=== PATIENT | male | born 1995 | race Caucasian/White ===

== ENCOUNTER 2017-10-08 21:43 | Emergency (ER) | payer BC, SELFPAY ==
[2017-10-08 21:44] VITALS: BP 130/111; PULSE 129; RESP 23; TEMP 38.7; O2SAT 95; BMI 34.6
--- NOTE | 2017-10-08 21:46 | EKG12_ITS ---
Test Reason : CP Blood Pressure : / mmHG Vent. Rate : 128 BPM Atrial Rate : 128 BPM P-R Int : 120 ms QRS Dur : 084 ms QT Int : 304 ms P-R-T Axes : 054 065 030 degrees QTc Int : 443 ms Sinus tachycardia Otherwise normal ECG Confirmed by DEO AHMADI, DONNA ([id number]), primer expeditor and drier NOVA GOVEA ([id number]) on 10/12/2017 2:50:39 PM Referred By: DEDRICK/[place] Confirmed By:DONNA DESOUZA MD
[2017-10-08 21:47] VITALS: PULSE 125; RESP 16; O2SAT 92
--- NOTE | 2017-10-08 22:00 | ED.RN ---
PT STATES HE DRINKS A 12 PK OF BEER PER DAY, LAST ETOH 2 DAYS AGO, DENIES WITHDRAWAL SYMPTOMS OTHER THAN COLD SWEATS, FEEL THESE MAY BE ATTRIBUTED TO FLU.
--- NOTE | 2017-10-08 22:13 | ED.VISSUMM ---
- ER Visit Summary Date of Service: 10/08/17 Chief Complaint: [] Nausea/vomiting, alcohol withdrawal History of Present Illness: The patient is a 21 M [] complaining of flulike symptoms for the last 4-5 days with the onset of nausea and vomiting the last 12-24 hours. Patient reports he cannot hold anything down. Patient also reports he quit drinking alcohol cold . Says he has been drinking at least a 12 pack every day for the last 3 years. One question whether he wants admitted for detox, he says I do not have time for that. He denies abdominal pain. He does present with fever and flulike symptoms. Reports he was seen at a [facility] 2 days ago and told he had the flu. Does report a past medical history of psoriatic arthritis. Physical Examination: [] Febrile at 101.6. Tachycardic with a heart rate of 125. BP 130/111. Respiratory rate 24. Pulse ox 90% on room air. Morbidly obese 21-year-old male no acute distress. Cardiovascular exam is tachycardic with regular rhythm. Lungs are clear to auscultation. Abdomen is obese, soft, nontender. Test Results: [] Chest x-ray: Negative. Labs: CBC, BMP within normal limits. Influenza swab: Negative. Emergency Department Course and Treatment: [] Patient received 2 L normal saline bolus upon arrival. Patient received intravenous Phenergan, Ativan. P.o. Tylenol. On serial examination his heart rate came down into the low 100s and he was feeling significantly improved. He was requesting discharge. Again on serial exam I questioned his desire for alcohol detoxification and he declined. He stated he could not miss work. He will be discharged with a prescription for Phenergan. Treatment Plan: [] Patient will be discharged to follow-up with PCP. Given outpatient prescription for Phenergan. Encouraged to seek outpatient treatment for alcoholism. Disposition: [] Discharge, stable Impression: [] Alcohol withdrawal Viral syndrome Vomiting This note was generated with [employer] dictation software. It may contain incorrect words, spelling, and punctuation that were not noted in review of the chart prior to signing ED Disposition - Plan for ED Patient: Chief Complaint: General Illness Referrals: NOT,DEFINED [NON-STAFF] -
--- NOTE | 2017-10-08 22:16 | ED.DCSUM_ITS ---
- ER Visit Summary Date of Service: 10/08/17 Chief Complaint: [] Nausea/vomiting, alcohol withdrawal History of Present Illness: The patient is a 21 M [] complaining of flulike symptoms for the last 4-5 days with the onset of nausea and vomiting the last 12 -24 hours. Patient reports he cannot hold anything down. Patient also reports he quit drinking alcohol cold . Says he has been drinking at least a 12 pack every day for the last 3 years. One question whether he wants admitted for detox, he says I do not have time for that. He denies abdominal pain. He does present with fever and flulike symptoms. Reports he was seen at a [facility] 2 days ago and told he had the flu. Does report a past medical history of psoriatic arthritis. Physical Examination: [] Febrile at 101.6. Tachycardic with a heart rate of 125. BP 130/111. Respiratory rate 24. Pulse ox 90% on room air. Morbidly obese 21-year-old male no acute distress. Cardiovascular exam is tachycardic with regular rhythm. Lungs are clear to auscultation. Abdomen is obese, soft, nontender. Test Results: [] Chest x-ray: Negative. Labs: CBC, BMP within normal limits. Influenza swab: Negative. Emergency Department Course and Treatment: [] Patient received 2 L normal saline bolus upon arrival. Patient received intravenous Phenergan, Ativan. P.o. Tylenol. On serial examination his heart rate came down into the low 100s and he was feeling significantly improved. He was requesting discharge. Again on serial exam I questioned his desire for alcohol detoxification and he declined. He stated he could not miss work. He will be discharged with a prescription for Phenergan. Treatment Plan: [] Patient will be discharged to follow-up with PCP. Given outpatient prescription for Phenergan. Encouraged to seek outpatient treatment for alcoholism. Disposition: [] Discharge, stable Impression: [] Alcohol withdrawal Viral syndrome Vomiting This note was generated with [employer] dictation software. It may contain incorrect words, spelling, and punctuation that were not noted in review of the chart prior to signing ED Disposition - Plan for ED Patient: Chief Complaint: General Illness Referrals: NOT,DEFINED [NON-STAFF] -
[2017-10-08] MEDS: 0.9% Normal Saline 1,000 ML 1000 ML IV ×2 (22:23→23:35)
[2017-10-08] MEDS: Acetaminophen 325 MG Tablet 650 MG PO (22:23)
[2017-10-08] MEDS: proMETHazine 25 MG/ML Syringe 6.25 MG IV (22:24)
[2017-10-08] MEDS: LORazepam 2 MG/ML Syringe 1 MG IV (22:24)
[2017-10-08 22:28] VITALS: BP 156/95; PULSE 122; RESP 24; O2SAT 92
[2017-10-08 22:33] LABS: Absolute Lymphocyte Count 0.99 X10^3/ul (0.83-4.51); Absolute Neutrophil Count 4.5 X10^3/uL (2.0-7.7); Basophil# 0.06 X10^3/uL; Basophil% 0.9 % (0-1); Eosinophil# 0.18 X10^3/uL; Eosinophils% 2.7 % (0-5); Hematocrit 47.1 % (40-54); Hemoglobin 16.3 g/dl (13.0-16.5); Lymphocyte # 0.99 X10^3/ul (4.0); Mean Corp Hgb Conc 34.6 g/gl (32-36); Mean Corpuscular Hgb 32.3 pg (27.0-32.0); Mean Corpuscular Volume 93.3 fL (80-94); Mean Platelet Vol. 8.8 fl (6.2-12.0); Monocyte# 0.87 X10^3/uL; Monocyte% 13.2 % (0-10); Neutrophil # 4.46 X10^3/uL (2.7-7.7); Neutrophil % 67.7 % (47-70); Platelet Count 254 K/mm3 (150-450); RBC Distribution Width CV 13.4 % (11.6-14.6); RBC Distribution Width SD 44.3 fl (35.1-43.9); Red Blood Count 5.05 M/mm3 (4.6-6.2); White Blood Count 6.6 K/mm3 (4.4-11.0)
[2017-10-08 22:35] LABS: POSITIVE COUNT NO; POSITIVE DIFFERENTIAL NO; POSITIVE MORPHOLOGY NO
[2017-10-08 22:45] LABS: ALB/GLOB Ratio 0.9 RATIO (0.9-2.4); AST(SGOT) 266 U/L (15-37); Alanine Aminotransfer ALT/SGPT 413 U/L (16-61); Albumin, Serum 4.2 g/dL (3.2-5.0); Alkaline Phosphatase 110 U/L (45-117); Anion Gap 8 (5-15); BUN 12 mg/dL (7-18); BUN/Creat Ratio 11.1 RATIO (10-20); Calcium,Total 9.8 mg/dL (8.5-10.1); Chloride 102 mmol/L (98-107); Creatinine, Serum 1.08 mg/dL (0.70-1.30); EST Glomerular Filtration Rate 89 mL/min (>60); Est Glom Filt Rate - Afr Amer 108 mL/min (>60); Estimated Creatinine Clearance 123.68 ml/min; Globulin 4.5 g/dL (2.2-4.2); Glucose 86 mg/dL (74-106); Lipase 91 U/L (73-393); Potassium 4.3 mmol/L (3.5-5.1); Protein, Total 8.7 g/dL (6.4-8.2); Sodium Level 137 mmol/L (136-145)
--- NOTE | 2017-10-08 22:50 | RAD_ITS ---
XR Chest 2 Views INDICATION: COUGH, FEVER AND CHEST PAINS ON THE LEFT FOR A FEW DAYS NOW. COMPARISON: None FINDINGS: Heart size and pulmonary vascularity are within normal limits. The lungs are clear without evidence of airspace consolidation or pleural effusion. The osseous structures are grossly unremarkable. RAD/Chest PA and Lateral IMPRESSION: No radiographic evidence of acute intrathoracic disease. at 2309 Reported and signed by: Clarice Agudelo MD Electronically Signed: Clarice Agudelo MD at 23:08 EDT Tel , Service support ,
[2017-10-08 23:04] LABS: Alcohol, Blood (Medical)-Serum < 3.0 mg/dL
[2017-10-08 23:36] VITALS: BP 150/106; PULSE 116; RESP 23; O2SAT 95
--- NOTE | 2017-10-09 00:12 | ED.DEP ---
ED Disposition - Plan for ED Patient: Disposition: Home or Assisted Living Chief Complaint: General Illness Instructions: Alcohol Addiction, ED Viral Syndrome Prescriptions: proMETHazine tablet [Phenergan tablet] 25 mg PO Q6H PRN PRN #20 tab PRN Reason: Nausea Referrals: NOT,DEFINED [NON-STAFF] -
[2017-10-09 00:15] VITALS: BP 150/94; PULSE 95; RESP 17; TEMP 36.9; O2SAT 93
== END 2017-10-09 00:23 | disposition home or self-care (01) ==
PROVIDERS: Emergency Provider Emergency Medicine
DX: F10.239 Alcohol dependence with withdrawal, unspecified (principal); B34.9 Viral infection, unspecified; R11.10 Vomiting, unspecified; R50.9 Fever, unspecified; E66.01 Morbid (severe) obesity due to excess calories; L40.50 Arthropathic psoriasis, unspecified; Z86.19 Personal history of other infectious and parasitic diseases
CPT/HCPCS: 71046; 80053; 80320; 83690; 85025; 87804; 93005; 96361; 96374; 96375; 99285; J7030; A4216; G0480

== ENCOUNTER 2017-12-15 19:29 | Emergency (ER) | payer BC, SELFPAY ==
[2017-12-15 19:31] VITALS: BP 157/93; PULSE 94; RESP 17; TEMP 36.4; O2SAT 96; BMI 34.9
--- NOTE | 2017-12-15 19:36 | ED.RN ---
RN CALLED FOR EKG, PULLED OLD EKG'S FOR
--- NOTE | 2017-12-15 19:50 | RAD_ITS ---
STUDY: X-RAY CHEST REASON FOR EXAM: Male, 22 years old. Intermittent chest pain for 3 days. TECHNIQUE: Single AP portable view of the chest. COMPARISON: October 08, 2017. FINDINGS: The lungs are clear and expanded. There is no demonstrated pleural abnormality. Normal size heart. Normal mediastinum and jessica. Normal visualized pulmonary arteries. Normal visualized aortic arch and descending thoracic aorta. The thoracic spine is obscured by the mediastinum. Normal visualized ribs, clavicles, and shoulders. There is no demonstrated abnormality of the visualized soft tissue structures of the upper abdomen. RAD/Chest 1 View (Portable) IMPRESSION: No acute cardiopulmonary disease or interval change. Electronically Signed: Ted Kimble DO at 20:10 EDT Tel [phone], Service support ,
--- NOTE | 2017-12-15 19:50 | EKG12_ITS ---
Test Reason : CHEST PAIN Blood Pressure : / mmHG Vent. Rate : 100 BPM Atrial Rate : 100 BPM P-R Int : 120 ms QRS Dur : 082 ms QT Int : 352 ms P-R-T Axes : 008 016 018 degrees QTc Int : 454 ms Normal sinus rhythm Normal ECG Confirmed by DEO AHMADI, DONNA ([id number]), book editor NOVA GOVEA ([id number]) on 12/19/2017 2:16:43 PM Referred By: KENDRA Confirmed By:DONNA DESOUZA MD
[2017-12-15] MEDS: Aspirin 81 MG TAB.CHEW 324 MG PO (20:05)
[2017-12-15 20:15] LABS: Absolute Lymphocyte Count 1.88 X10^3/ul (0.83-4.51); Absolute Neutrophil Count 4.6 X10^3/uL (2.0-7.7); Basophil# 0.03 X10^3/uL; Basophil% 0.4 % (0-1); Eosinophil# 0.39 X10^3/uL; Hemoglobin 14.4 g/dl (13.0-16.5); Lymphocyte # 1.88 X10^3/ul (4.0); Mean Corp Hgb Conc 33.5 g/gl (32-36); Mean Corpuscular Hgb 31.9 pg (27.0-32.0); Mean Corpuscular Volume 95.3 fL (80-94); Mean Platelet Vol. 8.9 fl (6.2-12.0); Monocyte# 0.98 X10^3/uL; Monocyte% 12.5 % (0-10); Neutrophil # 4.55 X10^3/uL (2.7-7.7); Platelet Count 263 K/mm3 (150-450); RBC Distribution Width CV 13.3 % (11.6-14.6); RBC Distribution Width SD 46.2 fl (35.1-43.9); Red Blood Count 4.51 M/mm3 (4.6-6.2); White Blood Count 7.8 K/mm3 (4.4-11.0)
[2017-12-15 20:16] LABS: POSITIVE COUNT NO; POSITIVE DIFFERENTIAL NO; POSITIVE MORPHOLOGY NO
[2017-12-15 20:21] LABS: D-Dimer Quantitative (DVT/PE) 0.38 FEU/ug/m (0.27-0.49)
[2017-12-15 20:25] LABS: Anion Gap 1 (5-15); BUN 14 mg/dL (7-18); BUN/Creat Ratio 14.9 RATIO (10-20); Calcium,Total 9.4 mg/dL (8.5-10.1); Chloride 103 mmol/L (98-107); Creatinine, Serum 0.94 mg/dL (0.70-1.30); EST Glomerular Filtration Rate 105 mL/min (>60); Est Glom Filt Rate - Afr Amer 127 mL/min (>60); Estimated Creatinine Clearance 140.89 ml/min; Glucose 101 mg/dL (74-106); Lipase 89 U/L (73-393); Potassium 4.1 mmol/L (3.5-5.1); Sodium Level 138 mmol/L (136-145)
[2017-12-15 20:39] VITALS: PULSE 84; RESP 20; O2SAT 99
--- NOTE | 2017-12-15 21:10 | ED.VISSUMM ---
- ER Visit Summary Date of Service: 12/15/17 Chief Complaint: Chest pain History of Present Illness: The patient is a 22 M presenting with chest pain intermittently ?3 days. He states he does a lot of frequent lifting but does not recall specific injury. He denies any recent travel or recent surgeries. He has a family history of DVT. No other PE/DVT risk factors. He is not a smoker. He has had subjective fevers and cough at home. Denies other complaints. Physical Examination: Vitals are stable. Patient is afebrile. Alert no acute distress. HEENT exam is unremarkable. Neck is supple. Lungs are clear and equal bilaterally. Mild chest wall tenderness with no crepitus Heart is regular rate and rhythm. Abdomen is soft nontender nondistended. Extremities are unremarkable. Skin is warm and dry. No focal neurologic deficit. Remainder of exam is unremarkable. Emergency Department Course and Treatment: Patient was given aspirin on arrival. EKG is sinus rhythm 100 with no acute ischemic changes. Chest x-ray shows no acute process. CBC, chemistries unremarkable. Lipase is 89. Troponin is negative. D-dimer negative. On reevaluation, patient is resting comfortably. He is advised to follow-up with his primary care physician. Advised return to ED for any worsening complaints. Disposition: Discharge home Impression: Atypical chest pain This note was generated with [employer] dictation software. It may contain incorrect words, spelling, and punctuation that were not noted in review of the chart prior to signing ED Disposition - Plan for ED Patient: Chief Complaint: Chest Pain Instructions: ED Chest Pain Atypical Unkn Cause Referrals: Care Physician,No Primary [Primary Care Provider] -
[2017-12-15 21:12] VITALS: BP 147/97; PULSE 89; RESP 20; O2SAT 99
--- NOTE | 2017-12-15 21:47 | ED.DEP ---
ED Disposition - Plan for ED Patient: Chief Complaint: Chest Pain Instructions: ED Chest Pain Atypical Unkn Cause Referrals: Care Physician,No Primary [Primary Care Provider] -
[2017-12-15 21:55] VITALS: BP 164/90; PULSE 80; RESP 16; O2SAT 99
== END 2017-12-15 21:56 | disposition home or self-care (01) ==
PROVIDERS: Emergency Provider Emergency Medicine
DX: R07.89 Other chest pain (principal); R06.00 Dyspnea, unspecified; R05 Cough
CPT/HCPCS: 71045; 80048; 83690; 84484; 85025; 85379; 93005; 99285; A4216

== ENCOUNTER 2018-12-23 12:50 | Emergency (ER) | payer BC, SELFPAY ==
[2018-12-23 12:51] VITALS: BP 134/88; PULSE 128; RESP 16; TEMP 36.6; O2SAT 97; BMI 33.1
--- NOTE | 2018-12-23 13:11 | ED.DCSUM_ITS ---
History of Present Illness Chief Complaint: Numb/Ting Informant: Patient Onset: Today Current Severity: Mild Maximum Severity: Mild Narrative: Reports waking from sleep around 930 this morning. He noted numbness and tin gling to the distal aspect of his left upper arm and forearm. He does not remember if he slept on his arm last night. He is able to use his arm without difficulty. Patient states this made him anxious and he did note his heart rate at home was 150. He denies chest pain. He has a history of hypertension and does take blood pressure medication. No recent changes to his medication. No headache or neck pain. Past Medical History - Allergies and Home Meds Allergies/Adverse Reactions: Allergies No Known Allergies Allergy (Verified 12/23/18 12:54) Primary Care Physician: Care Physician,No Primary [NON-STAFF] - Prior records reviewed: Yes Past Medical History: - - Reviewed Lives: Spouse/ Significant Other Smoking Status: Former smoker Alcohol: Heavy Review of Systems General: Denies: Chills, Fever Eyes: Denies: Visual changes - bilaterally ENT: Denies: Bilateral ear pain Cardiovascular: Reports: Heart racing. Denies: Chest pain Respiratory: Denies: Dyspnea, Cough Gastrointestinal: Denies: Abdominal pain, Nausea, Vomiting Musculoskeletal: Denies: Neck pain Skin: Denies: Rash, Wounds Neurological: Reports: Parasthesia. Denies: Headache, Weakness Psych: Reports: Anxiety Hematologic: Denies: Easy bruising Physical Exam Vital Signs/Narrative: Vital Signs Temp Pulse Resp BP Pulse Ox 12/23/18 12:51 97.8 F 128 H 16 134/88 H 97 Inital Vital Signs reviewed: Yes General: Well nourished, Well developed Eyes: Perrl ENT: Moist mucous membranes Cardiovascular: Tachycardia Respiratory: No distress, Decreased Air Movement Abdomen: Soft, Nontender Extremities: Nontender, No edema - Patient reports decreased sensation to light touch over the distal left upper arm and forearm. He has strong distal pulses with normal cap refill. No skin changes noted. He has normal strength on testing. Skin: Normal color, No rash Neurological: Alert, Oriented x3, Normal Strength. Negative for: Normal Sensation Psychological: - - Anxious Diagnostic/Tx/Re-eval Laboratory Results 12/23/18 12/23/18 12/23/18 13:27 13:27 13:27 WBC 5.5 RBC 4.31 L Hgb 13.9 Hct 41.2 MCV 95.6 H MCH 32.3 H MCHC 33.7 RDW Std Deviation 43.4 RDW Coeff of Calos 12.4 Plt Count 232 MPV 9.1 Immature Gran % (Auto) 0.400 Neut % (Auto) 58.5 Lymph % (Auto) 15.7 L [place] % (Auto) 16.3 H Eos % (Auto) 8.0 H Baso % (Auto) 1.1 H Absolute Neuts (auto) 3.2 Absolute Lymphs (auto) 0.87 Nucleated RBC % 0 Sodium 131 L Potassium 4.2 Chloride 96 L Carbon Dioxide 27.0 Anion Gap 8 BUN 12 Creatinine 1.19 Estim Creat Clear Calc 110.33 Est GFR (MDRD) Af Amer 96 Est GFR (MDRD) Non-Af 79 BUN/Creatinine Ratio 10.1 Glucose 425 H Hemoglobin A1c 10.6 H Calcium 9.4 - Medical Decision Making Patient was initially given IV fluids. Upon completion of BMP and significantly elevated glucose hemoglobin A1c was added. I discussed with patient and his at bedside the fact that he is now a diabetic. Patient does admit to having increased thirst and increased urination over the last week or so. He does admit to me that he is an alcoholic drinking at least a 12 pack of beer a night. He still reports some paresthesias in his left arm. Advised him I believe this is likely secondary to lying on his arm last night and will resolve with time. I do not see any other focal findings. I spoke with Dr. Coronado, on-call for [facility] physicians. Patient be started on metformin for his diabetes and will follow-up in the office. ED Disposition - Plan for ED Patient: Disposition: Home or Assisted Living Diagnosis: Paresthesias, Diabetes mellitus, new onset Instructions: DIABETES, General Info, NEUROPATHY, Peripheral Prescriptions: metFORMIN (XR) [Glucophage Xr] 2,000 mg PO DAILY #120 tablet Referrals: Ivonne Enriquez, WILIAN-C [Primary Care Provider] - 1 Week
[2018-12-23] MEDS: 0.9% Normal Saline 1,000 ML 1000 ML IV (13:40)
[2018-12-23 13:42] LABS: Absolute Lymphocyte Count 0.87 X10^3/uL (0.83-4.51); Absolute Neutrophil Count 3.2 X10^3/uL (2.0-7.7); Basophil# 0.06 X10^3/uL; Basophil% 1.1 % (0-1); Eosinophil# 0.44 X10^3/uL; Hematocrit 41.2 % (40-54); Hemoglobin 13.9 g/dL (13.0-16.5); Lymphocyte # 0.87 X10^3/ul (4.0); Lymphocyte % 15.7 % (19-41); Mean Corp Hgb Conc 33.7 g/dL (32-36); Mean Corpuscular Hgb 32.3 pg (27.0-32.0); Mean Corpuscular Volume 95.6 fL (80-94); Mean Platelet Vol. 9.1 fl (6.2-12.0); Monocyte% 16.3 % (0-10); NRBC Flagged by Analyzer 0 % (0-5); Neutrophil # 3.24 X10^3/uL (2.7-7.7); Neutrophil % 58.5 % (47-70); Platelet Count 232 K/mm3 (150-450); RBC Distribution Width CV 12.4 % (11.6-14.6); RBC Distribution Width SD 43.4 fl (35.1-43.9); Red Blood Count 4.31 M/mm3 (4.6-6.2); White Blood Count 5.5 K/mm3 (4.4-11.0)
[2018-12-23 13:53] LABS: Anion Gap 8 (5-15); BUN 12 mg/dL (7-18); BUN/Creat Ratio 10.1 RATIO (10-20); Calcium,Total 9.4 mg/dL (8.5-10.1); Chloride 96 mmol/L (98-107); Creatinine, Serum 1.19 mg/dL (0.70-1.30); EST Glomerular Filtration Rate 79 mL/min (>60); Est Glom Filt Rate - Afr Amer 96 mL/min (>60); Estimated Creatinine Clearance 110.33 ml/min; Glucose 425 mg/dL (74-106); Potassium 4.2 mmol/L (3.5-5.1); Sodium Level 131 mmol/L (136-145)
[2018-12-23 15:21] LABS: Hemoglobin A1c 10.6 % (4.2-6.3)
[2018-12-23] MEDS: 0.9% Normal Saline 1,000 ML 999 ML IV (15:22)
[2018-12-23 16:26] VITALS: BP 142/84; PULSE 88; RESP 16; O2SAT 98
[2018-12-23] MEDS: metFORMIN (XR) 500 MG Tablet PO (16:29)
[2018-12-23 16:34] VITALS: BP 142/84
== END 2018-12-23 16:36 | disposition home or self-care (01) ==
PROVIDERS: Emergency Provider Emergency Medicine; Family Provider Nurse Practitioner Family; PCP Nurse Practitioner Family
DX: R20.2 Paresthesia of skin (principal); E11.9 Type 2 diabetes mellitus without complications; I10 Essential (primary) hypertension; F41.9 Anxiety disorder, unspecified; Z79.899 Other long term (current) drug therapy; F10.20 Alcohol dependence, uncomplicated; Z87.891 Personal history of nicotine dependence
CPT/HCPCS: 80048; 83036; 85025; 96360; 96361; 99285; J7030; A4216

== ENCOUNTER → 2019-09-17 09:50 | Outpatient (CLI) | payer BC, SELFPAY ==
[2019-09-17 12:18] LABS: Absolute Lymphocyte Count 1.69 X10^3/uL (0.83-4.51); Absolute Neutrophil Count 3.8 X10^3/uL (2.0-7.7); Basophil# 0.09 X10^3/uL; Basophil% 1.3 % (0-1); Eosinophil# 0.43 X10^3/uL; Eosinophils% 6.2 % (0-5); Hematocrit 36.9 % (40-54); Hemoglobin 12.5 g/dL (13.0-16.5); Lymphocyte # 1.69 X10^3/ul (4.0); Lymphocyte % 24.4 % (19-41); Mean Corp Hgb Conc 33.9 g/dL (32-36); Mean Corpuscular Hgb 32.1 pg (27.0-32.0); Mean Corpuscular Volume 94.9 fL (80-94); Monocyte# 0.86 X10^3/uL; Monocyte% 12.4 % (0-10); NRBC Flagged by Analyzer 0 % (0-5); Neutrophil # 3.81 X10^3/uL (2.7-7.7); Platelet Count 270 K/mm3 (150-450); RBC Distribution Width CV 12.5 % (11.6-14.6); RBC Distribution Width SD 42.9 fl (35.1-43.9); Red Blood Count 3.89 M/mm3 (4.6-6.2); White Blood Count 6.9 K/mm3 (4.4-11.0)
[2019-09-17 12:37] LABS: Erythrocyte Sedimentation Rate 6 mm/hr (0-15)
[2019-09-17 12:57] LABS: AST(SGOT) 79 U/L (15-37); Alanine Aminotransfer ALT/SGPT 248 U/L (16-61); Alkaline Phosphatase 80 U/L (45-117); Anion Gap 5 (5-15); BUN 11 mg/dL (7-18); BUN/Creat Ratio 9.9 RATIO (10-20); CRP < 2.90 mg/L (0.0-3.0); Calcium,Total 9.9 mg/dL (8.5-10.1); Chloride 102 mmol/L (98-107); Creatinine, Serum 1.11 mg/dL (0.70-1.30); EST Glomerular Filtration Rate 85 mL/min (>60); Est Glom Filt Rate - Afr Amer 103 mL/min (>60); Glucose 125 mg/dL (74-106); Potassium 4.2 mmol/L (3.5-5.1); Rheumatoid Factor < 10.0 IU/mL (<15); Sodium Level 136 mmol/L (136-145)
[2019-09-17 13:26] LABS: Hepatitis B Surface Antibody Non-Reactive; Hepatitis B Surface Antigen Non-Reactive (Nonreactive); Hepatitis C Antibody Non-Reactive (Nonreactive)
[2019-09-18 14:17] LABS: ANTINUCLEAR ANTIBODIES DIRECT Positive (Negative)
[2019-09-21 14:08] LABS: QNTFERON TB Mitogen Value > 10.00 IU/mL (.); QNTFERON TB Nil Value 0.04 IU/mL (.); QNTFERON TB1+ Ag Value 0.05 IU/mL (.); QNTFERON TB2+ Ag Value 0.04 IU/mL (.)
[2019-09-21 15:25] LABS: CCP IgG Antibodies 9 units (0-19); HLA B27 Negative (.); Hepatitis B Core AB IgM Negative (Negative); QNTIFERON TB Positive Criteria Negative (Negative)
== END ==
PROVIDERS: PCP Nurse Practitioner Family; Referring Provider Internal Medicine Rheumatology; Visit Provider Internal Medicine Rheumatology
DX: L40.59 Other psoriatic arthropathy (principal); L40.8 Other psoriasis; M21.41 Flat foot [pes planus] (acquired), right foot
CPT/HCPCS: 36415; 80053; 81374; 85025; 85652; 86038; 86140; 86200; 86431; 86480; 86705; 86706; 86803; 87340

== ENCOUNTER → 2020-03-13 13:18 | Outpatient (CLI) | payer OTHER, SELFPAY ==
[2020-03-13 14:26] LABS: EXAGEN MAILED SPECIMEN
== END ==
PROVIDERS: PCP Nurse Practitioner Family; Referring Provider Internal Medicine Rheumatology; Visit Provider Internal Medicine Rheumatology
DX: L40.59 Other psoriatic arthropathy (principal); Z79.899 Other long term (current) drug therapy; L40.8 Other psoriasis; R76.8 Other specified abnormal immunological findings in serum
CPT/HCPCS: 36415

== ENCOUNTER → 2022-11-01 | Outpatient (CLI) | payer BC, SELFPAY ==
--- NOTE | 2022-11-01 07:49 | US_ITS ---
STUDY: ABDOMINAL ULTRASOUND - RIGHT UPPER QUADRANT; ELASTOGRAPHY REASON FOR VISIT: Male, 26 years old. Elevated liver enzymes. TECHNIQUE: Ultrasound evaluation of the right upper quadrant was performed with real-time and static albarran-scale imaging. Point quantification shear wave elastography was performed (Visual Unity ) TECHNICAL QUALITY: Adequate. COMPARISON: None. FINDINGS: Liver: The liver is enlarged and measures 20.4 cm. There is increased echogenicity consistent with fatty infiltration. The bile ducts are within normal limits. There is hepatic color flow. The direction of portal flow is hepatopetal. There is no demonstrated mass lesion. Median liver stiffness measured 11.1 kPa. Gallbladder: Normal distended gallbladder. The gallbladder wall measures 1.9 mm. There is a negative sonographic Strauss''s sign. There is no pericholecystic fluid. There are no gallstones. Common Bile Duct (C.B.D.): The common bile duct measures 5 mm. Pancreas: There is normal echogenicity of the visualized pancreas. There is no demonstrated pancreatic mass or cyst. Right Kidney: Normal size of the right kidney. The right kidney measures 11.2 cm x 5.6 x 6.2 cm. Normal renal cortex. The right cortex measures 1.9 cm. There is no demonstrated renal mass or cyst. There is no right hydronephrosis. US/ABD Limited w/ Elastography IMPRESSION: 1. Liver stiffness measures 11.1 kPa compatible with F2-F3 (Mild to moderate liver fibrosis) Metavir score. Electronically Signed: Chema Del Toro MD at 12:31 EDT ,
== END | disposition home or self-care (01) ==
LOC: US 07:47
PROVIDERS: PCP Nurse Practitioner Family; Referring Provider Internal Medicine Gastroenterology; Visit Provider Internal Medicine Gastroenterology
DX: R94.5 Abnormal results of liver function studies (principal)
CPT/HCPCS: 36415; 76705; 76981; 85610

== ENCOUNTER → 2022-12-07 | Outpatient (CLI) | payer BC, SELFPAY ==
[2022-12-07 17:00] LABS: Platelet Count 238 K/mm3 (150-450)
[2022-12-07 17:07] LABS: International Normalized Ratio 1.1; Prothrombin Time (Protime)PT. 14.4 SECONDS (11.7-14.9)
[2022-12-07 17:08] LABS: Partial Thromboplast Time 30.1 Seconds (24.1-36.2)
== END | disposition home or self-care (01) ==
LOC: LAB 15:30
PROVIDERS: PCP Nurse Practitioner Family; Referring Provider Internal Medicine Gastroenterology; Visit Provider Internal Medicine Gastroenterology
DX: K76.0 Fatty (change of) liver, not elsewhere classified (principal); K70.9 Alcoholic liver disease, unspecified; F10.10 Alcohol abuse, uncomplicated; R16.0 Hepatomegaly, not elsewhere classified
CPT/HCPCS: 36415; 85049; 85610; 85730

== ENCOUNTER → 2022-12-13 | Outpatient (CLI) | payer BC, SELFPAY ==
[2022-12-13] VITALS (9 sets, daily range): BP systolic 118–153; BP diastolic 86–109; PULSE 52–81; RESP 12–18; TEMP 36.5; O2SAT 93–97; BMI 34.0
--- NOTE | 2022-12-13 | LIV_PTH ---
PATIENT: LASHAUN JEFFERSON LOC: CT U#:[id number] AGE/SX: 27/M ROOM: RE12/13/[address]: Dr. Fly Abdi MD : 1995 BED: DIS: 12/13/2022 SPEC #: [id number] RECD: 12/13/22 10:26 STATUS: LEN PAM #: [id number] HERMAN: 12/13/22 00:[address]: Fly Abdi DEPT: SURGICAL PATHOLOGY RECD BY: Yaakov Nguyen ENTERED: 12/13/22 10:26 SP TYPE: LIVER RES OTHR DR: Ivonne Enriquez, INTERNET RETAILER-C Tissues: Liver, NOS Procedures: PAS with Diastase (control) Trichrome (control) Special Stain Group II Special Stain Group I PAS Stain (control) Surgery Specimen Level V AFB Stain (control) GMS Stain (control) Retic (control) Iron Stain (control) HEADER OPERATION: CT-guided liver biopsy PRE-OP DIAGNOSIS: Fatty liver TISSUE SUBMITTED: Liver 18-gauge x3 MICROSCOPIC DIAGNOSIS Liver, CT-guided core biopsy: Cirrhosis. Chronic hepatitis (grade 2, stage 4). Hepatic steatosis, predominantly macrovesicular. Focal non necrotizing granuloma. See comment. AM:imelda 12/14/2022 COMMENT The modified Knodell scoring system for chronic hepatitis was used in the evaluation of this case. Sections on trichrome stain show broad band fibrosis with bridging. The liver parenchyma shows mostly macrovesicular steatosis with a small component of microvesicular steatosis. Reticulin stain highlights fibrosis. Iron stain does not reveal accumulation of intraparenchymal iron. PAS and PASD stains do not reveal accumulation of abnormal protein. A single non necrotizing granuloma is present and is negative for organisms on acid fast and GMS stains. All matched controls are appropriate. Clinical correlation is suggested. Case has been reviewed in consultation with Dr. Anton who concurs with the above diagnosis. IDC:[email or web address] MICROSCOPIC DESCRIPTION Slides are reviewed. GROSS DESCRIPTION Received is one container labeled with the patient's name and not further designated. The specimen consists of three elongated fragments of thomas soft tissue measuring in aggregate 2.0 x 0.3 x 0.1 cm. The specimen is totally submitted in one cassette. / SHANT:imelda 12/13/2022 TC:3 CPT: 02880, 30011 x5, 83802 x2.
--- NOTE | 2022-12-13 08:06 | CT_ITS ---
PROCEDURE: CT DIRECTED CORE LIVER BIOPSY INDICATION: Male, 27 years old. LIVER BIOPSY PHYSICIAN: Dr. Katey Silver CONSENT: Written informed consent was obtained having explained the risks, benefits and alternatives in detail with the patient who accepted the risks and agreed to proceed. Laboratory review and clinical assessment was performed. CONSCIOUS SEDATION PROTOCOL: The Drugs used were: 2 mg Versed, IV., and 50 mcg Fentanyl, IV. The sedation time was: 15 minutes. Conscious sedation was started at 8:43 AM and terminated at 8:58 AM. The conscious sedation protocol was independently monitored. RADIATION DOSAGE (If Supplied By Facility): CTDIvol = ( 26 ) mGy, DLP = ( 1451.77 ) mGycm Individualized dose optimization techniques were used for this CT. TECHNIQUE: Using CT image guidance with image documentation, a suitable location in the right lobe of the liver was identified. Using an anterior approach, puncture of the liver was uneventful with an 18-gauge core needle system. 3, 18-gauge core samples were obtained, and submitted in formalin to the pathologist for further assessment. Followup CT scan revealed no distinct sequelae. CT/Biopsy/Inj or Needle Placement IMPRESSION: 1. CT directed core needle biopsy of the liver, using CT image guidance with image documentation as described. 2. Conscious Sedation protocol utilized with independent monitoring. Electronically Signed: Chema Del Toro MD at 9:35 EDT ,
[2022-12-13 08:07] LABS: Platelet Count 206 K/mm3 (150-450)
[2022-12-13 08:30] LABS: International Normalized Ratio 1.1; Prothrombin Time (Protime)PT. 13.9 SECONDS (11.7-14.9)
[2022-12-13 08:31] LABS: Partial Thromboplast Time 31.4 Seconds (24.1-36.2)
[2022-12-13] MEDS: Midazolam 2 MG/2 ML Syringe IV (08:43)
[2022-12-13] MEDS: fentaNYL 100 MCG/2 ML Ampul IV (08:44)
[2022-12-13] MEDS: Lidocaine 2% (20 ml mdv) 20 ML Vial INFILT (08:53)
== END | disposition home or self-care (01) ==
PROVIDERS: PCP Nurse Practitioner Family; Referring Provider Internal Medicine Gastroenterology; Visit Provider Internal Medicine Gastroenterology
DX: K70.10 Alcoholic hepatitis without ascites (principal)
CPT/HCPCS: 47000; 36415; 77012; 85049; 85610; 85730; 88307; 88312; 88313; 99156; J7050; A4216

== ENCOUNTER → 2023-09-29 | Outpatient (CLI) | payer BC, SELFPAY ==
[2023-09-29 13:03] LABS: Pathologist Comment May follow
[2023-09-29 14:38] LABS: Synovial Fld Mononuclear WBC # 4.986 10^3/ul; Synovial Fld Mononuclear WBC % 27.9 %; Synovial Fld Polynuclear WBC # 12.916 10^3/uL; Synovial Fld Polynuclear WBC % 72.1 %
[2023-09-29 15:12] LABS: RBC /Synovial Fluid 0.004 10^6/uL (0)
[2023-09-29 16:06] LABS: Lymph 6 %; Monocyte /Synovial Fluid 6 %; Neutrophil 81 % (0-25)
[2023-09-29 16:07] LABS: AUTO B FLUID DILUENT BKGD CT WBC <0.1 RBC <0.01 (W<.1,R<.01); CRYSTALS, BODY FLUID NO CRYSTALS SEEN
[2023-09-29 16:08] LABS: Source- Body Fluid SYNOVIAL
[2023-09-29 16:09] LABS: Source / Synovial Fluid RIGHT KNEE
[2023-09-29 16:10] LABS: Appearance /Synovial Fluid Cloudy (CLEAR); Color / Synovial Fluid Yellow (Pale Yellow)
[2023-09-29 16:11] LABS: Body Fluid QC Type(s) BF1Q,BF2Q; Other Cell /Synovial Fluid 7 %
[2023-09-30 11:55] LABS: Pathologist Review Reviewed
== END | disposition home or self-care (01) ==
LOC: LABSPEC 12:48
PROVIDERS: PCP Nurse Practitioner Family; Referring Provider Internal Medicine Rheumatology; Visit Provider Internal Medicine Rheumatology
DX: L40.59 Other psoriatic arthropathy (principal); Z79.899 Other long term (current) drug therapy; L40.8 Other psoriasis; R76.8 Other specified abnormal immunological findings in serum; M25.561 Pain in right knee
CPT/HCPCS: 87070; 87075; 87205; 89050; 89051; 89060

== ENCOUNTER → 2024-01-25 | Outpatient (CLI) | payer BC, SELFPAY ==
[2024-01-25 17:28] LABS: Hematocrit 47.1 % (40-54); Hemoglobin 15.4 g/dL (13.0-16.5); Mean Corp Hgb Conc 32.7 g/dL (32-36); Mean Corpuscular Hgb 30.2 pg (27.0-32.0); Mean Corpuscular Volume 92.4 fL (80-94); Mean Platelet Vol. 9.3 fl (6.2-12.0); Platelet Count 306 K/mm3 (150-450); RBC Distribution Width CV 12.7 % (11.6-14.6); RBC Distribution Width SD 43.8 fl (35.1-43.9)
[2024-01-25 17:55] LABS: International Normalized Ratio 1.1; Prothrombin Time (Protime)PT. 14.4 SECONDS (11.7-14.9)
[2024-01-27 12:09] LABS: AFP, Tumor Marker 4.7 ng/mL (0.0-5.7)
== END | disposition home or self-care (01) ==
LOC: MTLAB 14:06
PROVIDERS: PCP Nurse Practitioner Family; Referring Provider Internal Medicine Gastroenterology; Visit Provider Internal Medicine Gastroenterology
DX: K74.60 Unspecified cirrhosis of liver (principal)
CPT/HCPCS: 36415; 82105; 85027; 85610

== ENCOUNTER → 2025-02-06 | Outpatient (CLI) | payer BC, SELFPAY ==
[2025-02-06 20:33] LABS: Synovial Fld Mononuclear WBC # 1.804 10^3/ul; Synovial Fld Mononuclear WBC % 32.5 %; Synovial Fld Polynuclear WBC # 3.746 10^3/uL; Synovial Fld Polynuclear WBC % 67.5 %; Total Cell Count Synovial Fld 5.7170 10^3/uL (0.000-0.000); WBC / Synovial Fluid 5.5500 10^3/uL (0.000-0.002)
[2025-02-06 20:56] LABS: AUTO B FLUID DILUENT BKGD CT WBC <0.1 RBC <0.01 (W<.1,R<.01); Source- Body Fluid SYNOVIAL
[2025-02-06 20:57] LABS: Color / Synovial Fluid Straw (Pale Yellow)
[2025-02-06 20:58] LABS: Appearance /Synovial Fluid Turbid (CLEAR)
[2025-02-06 21:02] LABS: Source / Synovial Fluid RGHT KNEE
[2025-02-06 22:39] LABS: RBC /Synovial Fluid 559 /mm3 (0)
[2025-02-06 23:26] LABS: Monocyte /Synovial Fluid 13 %
[2025-02-06 23:28] LABS: Body Fluid QC Type(s) BF2Q,BF3Q
[2025-02-06 23:42] LABS: CRYSTALS, BODY FLUID NO CRYSTALS SEEN
[2025-02-08 14:11] LABS: Other Cell /Synovial Fluid 10 %
== END | disposition home or self-care (01) ==
PROVIDERS: PCP Nurse Practitioner Family; Referring Provider Internal Medicine Rheumatology; Visit Provider Internal Medicine Rheumatology
DX: L40.59 Other psoriatic arthropathy (principal); Z79.899 Other long term (current) drug therapy; R76.8 Other specified abnormal immunological findings in serum; M25.561 Pain in right knee
CPT/HCPCS: 87070; 87075; 87205; 89050; 89051; 89060

== ENCOUNTER 2025-04-12 12:45 | Emergency (ER) | payer BC, SELFPAY ==
[2025-04-12 12:45] VITALS: BP 153/91; PULSE 100; RESP 16; TEMP 36.8; O2SAT 99; BMI 30.2
--- NOTE | 2025-04-12 13:16 | RAD_ITS ---
PROCEDURE: KNEE 4 OR MORE VIEWS 04/12/2025 REASON FOR EXAM: LEFT KNEE PAIN, INJURY TECHNIQUE: Procedure Code: RADKN Modality: DX Procedure: KNEE 4 OR MORE VIEWS Laterality: Left COMPARISON: None. FINDINGS: Bones: No fracture. No suspicious bone lesion. Joints: Normal alignment. No significant degenerative changes. Effusion: No effusion. Soft tissues: Soft tissues are unremarkable. RAD/Knee 4 or More Views IMPRESSION: NO EFFUSION ACUTE FRACTURE OR DISLOCATION. Reading [facility]
--- NOTE | 2025-04-12 13:16 | VDLE_ITS ---
Reason For Study Reason For Study: Swelling RIGHT LEFT CFV is compressible, spontaneous, phasic, competent GSV is normal. and demonstrates normal augmentation. CFV is compressible, spontaneous, phasic, competent, Procedure and demonstrates normal augmentation. This is a venous duplex using B-mode, color flow and FV is compressible, spontaneous, phasic, competent spectral Doppler. and demonstrates normal augmentation. Exam performed portable in ED. POP V is compressible, spontaneous, phasic, competent A preliminary report was called and/or faxed to ED and demonstrates normal augmentation. RN. T/P Trunk is compressible. PTV is compressible. LT PerV is compressible. VL/Venous Duplex US, Unilateral Interpretation Summary Deep veins of the left lower extremity are patent and compressible segmentally. There is no evidence of left lower extremity deep vein thrombosis. Valvular competence appears intact within the p roximal deep venous system on the left . The left great saphenous vein appears patent and compressible segmentally. The right common femoral vein is patent and compressible . Ordering Physician: Omaira Ogden Performed By: Magaly Smyth RVYuliet
[2025-04-12] MEDS: Ketorolac 30 MG/ML Syringe IM (13:45)
--- OUTSIDE RECORDS SUMMARY | 2025-04-12 14:14 | XMS RPT_ITS | CCD ---
Author Organization [facility] Inform ion Partnership [facility] Care Team Providers Care Rehabilitation Aide Name Role Phone LORCONSUELO BENCH ASSEMBLER ELECT[employer]ICAL[employer]EL MAKER, [place] Primary Care Physician Dar PT, Marsha Unavailable Unavailable Benjy Velazco DO Primary Care Provider AARTI HALEY, [place] Primary Care Physician ISH AHMADI, DR BILL Attending Unavailabl e LORSON BENCH ASSEMBLER ELECTRICAL[facility]EL [facility] Unavail able KAZ AHMADI, DR SORTO Attending Unavailabl e LORSON BENCH ASSEMBLER ELECTRICAL-LABEL [facility] Unavail able KAZ AHMADI, DR SORTO Attending Unavailabl e LORSON BENCH ASSEMBLER ELECTRICAL-LABEL [facility] Unavail able ISH AHMADI, DR BILL Attending Unavailabl e LORSON BENCH ASSEMBLER ELECTRICAL-LABEL [facility]Tr[facility] Unavail able KAZ AHMADI, DR SORTO Attending Unavailabl e LORSON BENCH ASSEMBLER ELECTRICAL-LABEL [facility] Unavail able KAZ AHMADI, DR SORTO Attending Unavailabl e LORSON BENCH ASSEMBLER ELECTRICAL-LABEL MAKERTr[facility] Unavail able DR CHELSEY MCGOWAN DO Attending Unavailable LORSON BENCH ASSEMBLER ELECTRICAL-LABEL [facility]Tr[facility] Unavail able LORSON BENCH ASSEMBLER ELECTRICAL-LABEL MAKER, [place] Attending Unavail able LORSON BENCH ASSEMBLER ELECTRICAL-LABEL [facility]Tr[facility] Unavail able LORSON BENCH ASSEMBLER ELECTRICAL-LABEL MAKER, [place] Attending Unavail able LORSON BENCH ASSEMBLER ELECTRICAL-LABEL [facility]Tr[facility] Unavail able ISH AHMADI, DR BILL Attending Unavailabl e [facility] Unavailable KAZ AHMADI, DR SORTO Attending Unavailabl e [facility] Unavailable KAZ AHMADI, DR SORTO Attending Unavailabl e [facility] Unavailable [facility] Unavailable AARTI IVONNE Attending Unavailable ISH AHMADI, DR BILL Attending [facility] Unavailable KAZ AHMADI, DR SORTO Attending [facility] Unavailable KAZ AHMADI, DR SORTO Attending [facility], [facility] Unavailable ISH AHMADI, DR BILL Attending [facility] Unavailable Aatri LEASING CONSULTANT, [facility] Unavailable Macario Mccurdy Referring Unavailable Macario Mccurdy Attending [facility] Aarti LEASING CONSULTANT-C, [place] [facility] Physician Kaz AHMADI, Dr. Sorto Attending Physician [phone] Kaz AHMADI, Dr. Sorto Referring Provider Medications Current Medications Medication Drug Class(es) Dates Sig (Normalized) Sig (Original) 0.8 ml adalimumab 50 mg/ml auto-injector (20 sources) Tumor Necrosis Factor Sera Start: 12-13-2022 Start: 07-02-2020 inject 0.4 mL by sub cutaneous injection every other week Humira Pre-Filled Syringe 40 mg/0.4 mL subcutaneous kit Dose : 40 mg = 0.4 mL, Subcutaneous, q2wk, # 2 EA, 0 Refill(s) Start Date: 07/02/20 Status: Ordered Quantity: 2.0 Unit: EA Repeat number: 1 Blood Glucose Test Machine (20 sources) Start: 04-02-2020 Blood Glucose Test Machine See Instructions, Use as directed Brand type per insurance or patient preference, # 1 EA, 0 Refill(s), [id number] 188, cm, 04/02/20 15:21:00 EST, Height, 120.4, kg, 04/02/20 15:21:00 EST, Dosing Weight Start Date: 04/02/20 Status: Ordered Medication Dispense Status: Completed Quantity: 1.0 Unit: EA Total Allowed Fills: 1 Fills Dispensed: 0 Start: 04-02-2020 Blood Glucose Test Machine See Instructions, Use as directed Brand type per insurance or patient preference, # 1 EA, 0 Refill(s), Pharmacy: [id number], 188, cm, 04/02/20 15:21:00 EST, Height, 120.4, kg, 04/02/20 15:21:00 EST, Dosing Weight Start Date: 04/02/20 Status: Ordered Quantity: 1.0 Unit: EA Repeat number: 1 Start: 04-02-2020 Blood Glucose Test Machine See Instructions, Use as directed Brand type per insurance or patient preference, # 1 EA, 0 Refill(s), [id number], 188, cm, 04/02/20 15:21:00 EST, Height, 120.4, kg, 04/02/20 15:21:00 EST, Dosing Weight Start Date: 04/02/20 Status: Ordered busPIRone hydrochloride 10 m g oral tablet (20 sources) Start: 10-26-2023 End: 10-20-2024 busPIRone 10 mg oral tablet Dose : 10 mg = 1 tab(s), Oral, TID, PRN Anxiety, # 270 tab(s), 3 Refill(s), [id number], 191, cm, 10/26/23 11:34:00 EDT, Height, kg, 10/26/23 11:34:00 EDT, Dosing Weight Start Date: 10/26/23 Stop Date: 10/20/24 Status: Ordered Quantity: 270.0 Unit: tab(s) Repeat number: 4 Start: 12-13-2022 busPIRone 10 m g oral tablet Dose : 10 mg = 1 tab(s), Oral, TID, # 270 tab(s), 3 Refill(s), [id number], 157.5, cm, 09/06/22 15:34:00 EDT, Height, kg, 09/06/22 15:34:00 EDT, Dosing Weight Start Date: 01/26/23 Status: Ordered Start: 12-07-2021 End: 12-02-2022 busPIRone 10 mg oral tablet Dose : 10 mg = 1 tab(s), Oral, TID, X 90 day(s), # 270 tab(s), 3 Refill(s), 12/02/22 15:14:00 EDT, [facility]: [id number], 189.4, cm, 12/07/21 14:54:00 EDT, Height, kg, 12/07/21 14:54:00 EDT, Dosing Weight Start Date: 12/07/21 Stop Date: 12/02/22 Status: Ordered Start: 03-17-2021 take 1 tablet by mariely th three times daily busPIRone 10 mg oral tablet See Instructions, TAKE 1 TABLET BY MOUTH three times A DAY, # 90 tab(s), 11 Refill(s), Pharm[facility]: [id number], 188, cm, 09/16/20 13:32:00 EDT, Height, kg, 09/16/20 13:32:00 EDT, Dosing Weight Start Date: 03/17/21 Status: Ordered cloNIDine hydrochloride 0.1 mg oral tablet (18 sources) Central alpha-2 Adrenergic Agonist Start: 07-27-2023 cloNIDine 0.1 mg ora l tablet Dose : 0.1 mg = 1 tab(s), Oral, BID, # 60 tab(s), 5 Refill(s), Pharm[facility]: [id number], 191, cm, 07/27/23 11:35:00 EDT, Height, kg, 07/27/23 11:35:00 EDT, Dosing Weight Start Date: 07/27/23 Status: Ordered Start: 12-13-2022 cloNIDine 0.2 mg oral tablet Dose : 0.2 mg = 1 tab(s), Oral, BID, # 180 tab(s), 3 Refill(s), Pharmacy: [facility] #[id number], 157.5, cm, 09/06/22 15:34:00 EDT, Height, kg, 09/06/22 15:34:00 EDT, Dosing Weight Start Date: 01/26/23 Status: Ordered Start: 12-07-2021 End: 12-02-2022 cloNIDine 0.2 mg oral tablet Dose : 0.2 mg = 1 tab(s), Oral, BID, # 180 tab(s), 3 Refill(s), Pharm[facility]: [id number], 189.4, cm, 12/07/21 14:54:00 EDT, Height, kg, 12/07/21 14:54:00 EDT, Dosing Weight Start Date: 12/07/21 Stop Date: 12/02/22 Status: Ordered Start: 11-20-2021 cloNIDine 0.2 mg oral tablet Dose : 0.2 mg = 1 tab(s), Oral, BID, # 60 tab(s), 0 Refill(s), [id number], 189.5, cm, 08/03/21 13:20:00 EDT, Height, kg, 08/03/21 13:20:00 EDT, Dosing Weight Start Date: 11/20/21 Status: Ordered Start: 04-29-2021 cloNIDine 0.2 mg oral tablet Dose : 0.2 mg = 1 tab(s), Oral, BID, # 60 tab(s), 3 Refill(s), [id number], 192, cm, 04/29/21 13:02:00 EST, Height, kg, 04/29/21 13:02:00 EST, Dosing Weight Start Date: 04/29/21 Status: Ordered folic acid 0.4 mg oral table t (9 sources) Start: 12-13-2022 take 1 tablet by mouth once da marie Start: 03-08-2022 folic acid 0.4 mg oral tablet Dose : 0.4 mg = 1 tab(s), Oral, qDay, # 100 tab(s), 3 Refill(s), [id number], 189.5, cm, 03/08/22 15:10:00 EDT, Height Start Date: 03/08/22 Status: Ordered 1 ml guselkumab 100 mg/ml prefilled syringe (2 sources) Interleukin-23 Antagonist Start: 10-13-2024 Tremfya 100 mg/mL subcutaneous solution Dose : 100 mg =, Subcutaneous, q8wk, # 1 EA, 0 Refill(s), other reason (Rx) Start Date: 10/13/24 Status: Ordered Medication Dispense Status: Completed Quantity: 1.0 Unit: EA Total Allowed Fills: 1 Fills Dispensed: 0 levothyroxine sodium 0.05 mg oral tablet (20 sources) l-Thyroxine Start: 10-26-2023 End: 08-24-2025 levothyroxine 50 mcg (0.05 mg) oral tablet Dose : 50 mcg = 1 tab(s), Oral, qDay, # 90 tab(s), 3 Refill(s), [id number], 189.8, cm, 08/29/24 11:38:00 EDT, Height, kg, 08/29/24 11:38:00 EDT, Dosing Weight Start Date: 08/29/24 Stop Date: 08/24/25 Status: Ordered Medication Dispense Status: Completed Quantity: 90.0 Unit: tab(s) Total Allowed Fills: 4 Fills Dispensed: 0 Start: 04-15-2023 End: 10-12-2023 levothyroxine 50 mcg (0.05 m g) oral tablet Dose : 50 mcg = 1 tab(s), Oral, qDay, # 90 tab(s), 1 Refill(s), [facility]: [id number], 157.5, cm, 04/15/23 11:33:00 EST, Height, kg, 04/15/23 11:33:00 EST, Dosing Weight Start Date: 04/15/23 Stop Date: 10/12/23 Status: Ordered Start: 12-13-2022 take 1 capsule by [facility] once daily Start: 04-29-2021 End: 03-03-2023 levothyroxine 50 mcg (0.05 m g) oral tablet Dose : 50 mcg = 1 tab(s), Oral, qDay, # 90 tab(s), 3 Refill(s), [facility]: [id number], 189.5, cm, 03/08/22 15:10:00 EDT, Height, kg, 03/08/22 15:10:00 EDT, Dosing Weight Start Date: 03/08/22 Stop Date: 03/03/23 Status: Ordered losartan potassium 50 mg oral tablet (18 sources) Angiotensin 2 Receptor Sera Start: 07-27-2023 End: 07-21-2024 losartan 50 mg oral tablet Dose : 50 mg = 1 tab(s), Oral, qDay, # 30 tab(s), 11 Refill(s), Pharm[facility]: [id number], 191, cm, 07/27/23 11:35:00 EDT, Height, kg, 07/27/23 11:35:00 EDT, Dosing Weight Start Date: 07/27/23 Stop Date: 07/21/24 Status: Ordered Start: 04-15-2023 losartan 50 mg oral tablet Dose : 50 mg = 1 tab(s), Oral, qDay, # 90 tab(s), 0 Refill(s), [id number], 157.5, cm, 04/15/23 11:33:00 EST, Height, kg, 04/15/23 11:33:00 EST, Dosing Weight Start Date: 04/15/23 Status: Ordered Start: 12-13-2022 losartan 100 m g oral tablet Dose : 100 mg = 1 tab(s), Oral, qDay, # 90 tab(s), 3 Refill(s), [id number], 157.5, cm, 09/06/22 15:34:00 EDT, Height, kg, 09/06/22 15:34:00 EDT, Dosing Weight Start Date: 01/26/23 Status: Ordered Start: 12-07-2021 End: 12-02-2022 losartan 100 mg oral tablet Dose : 100 mg = 1 tab(s), Oral, qDay, # 90 tab(s), 3 Refill(s), [id number], 189.4, cm, 12/07/21 14:54:00 EDT, Height, kg, 12/07/21 14:54:00 EDT, Dosing Weight Start Date: 12/07/21 Stop Date: 12/02/22 Status: Ordered Start: 08-03-2021 End: 12-01-2021 losartan 100 mg oral tablet Dose : 100 mg = 1 tab(s), Oral, qDay, # 30 tab(s), 3 Refill(s), [id number], 189.5, cm, 08/03/21 13:20:00 EDT, Height, kg, 08/03/21 13:20:00 EDT, Dosing Weight Start Date: 08/03/21 Stop Date: 12/01/21 Status: Ordered Start: 06-16-2021 End: 07-16-2021 losartan 100 mg oral tablet Dose : 100 mg = 1 tab(s), Oral, qDay, # 30 tab(s), 0 Refill(s), [id number], 192, cm, 04/29/21 13:02:00 EST, Height, kg, 04/29/21 13:02:00 EST, Dosing Weight Start Date: 06/16/21 Stop Date: 07/16/21 Status: Ordered metFORMIN hydrochloride 500 mg oral tablet (15 sources) Biguanide Start: 12-07-2021 End: 06-02-2023 MetFORMIN (Eqv-Glucophage XR) 500 mg oral tablet, EXTENDED RELEASE Dose : 500 mg = 1 tab(s), Oral, qDay, # 90 tab(s), 1 Refill(s), [id number], 157.5, cm, 04/15/23 11:33:00 EST, Height, kg, 04/15/23 11:33:00 EST, Dosing Weight Start Date: 04/15/23 Status: Ordered Start: 04-29-2021 End: 10-26-2021 metFORMIN 500 mg oral tablet (IR) Dose : 1,000 mg = 2 tab(s), Oral, Daily, # 60 tab(s), 5 Refill(s), [id number], 192, cm, 04/29/21 13:02:00 EST, Height, kg, 04/29/21 13:02:00 EST, Dosing Weight Start Date: 04/29/21 Stop Date: 10/26/21 Status: Ordered Start: 12-23-2018 take 1 tablet by mariely th once daily, then take 2 tablets by mouth once daily Start: 12-23-2018 take 1 tablet by mariely th once daily, then take 2 tablets by mouth once daily Metformin Active 2000 MG PO DAILY 120 December 23, 2018 12:00am Begin taking one tab daily for first 4 days. Then increase to 2 tabs daily for 4 days. Then increase to 3 tabs daily for 4 days. Then increase to 4 tabs daily. pantoprazole 40 mg delayed release oral tablet (20 sources) Proton Pump Inhibitor Start: 06-19-2024 pantoprazole 40 mg oral enteric coated tablet Dose : 40 mg = 1 tab(s), Oral, qDay, # 90 tab(s), 3 Refill(s), [id number], 189, cm, 02/29/24 11:35:00 EDT, Height, kg, 02/29/24 11:35:00 EDT, Dosing Weight Start Date: 06/19/24 Status: Ordered Medication Dispense Status: Completed Quantity: 90.0 Unit: tab(s) Total Allowed Fills: 4 Fills Dispensed: 0 Start: 04-15-2023 pantoprazole 4 0 mg oral enteric coated tablet Dose : 40 mg = 1 tab(s), Oral, qDay, # 90 tab(s), 1 Refill(s), [id number], 157.5, cm, 04/15/23 11:33:00 EST, Height, kg, 04/15/23 11:33:00 EST, Dosing Weight Start Date: 04/15/23 Status: Ordered Start: 12-23-2018 pantoprazole 4 0 mg oral enteric coated tablet Dose : 40 mg = 1 tab(s), Oral, qDay, # 90 tab(s), 3 Refill(s), [id number], 157.5, cm, 09/06/22 15:34:00 EDT, Height, kg, 09/06/22 15:34:00 EDT, Dosing Weight Start Date: 12/06/22 Status: Ordered Pen needles (10 sources) Start: 09-02-2020 Pen needles Se e Instructions, lispro pen needles #100, # 1 EA, 0 Refill(s), [id number], Type 2 diabetes mellitus, 190, cm, 07/02/20 14:48:00 EST, Height, 131.2, kg, 07/02/20 14:48:00 EST, Dosing Weight Start Date: 09/02/20 Status: Ordered Start: 09-02-2020 Pen needles Se e Instructions, basaglar kwikpen pen needles, #100, # 1 EA, 0 Refill(s), [id number], Type 2 diabetes mellitus, 190, cm, 07/02/20 14:48:00 EST, Height, 131.2, kg, 07/02/20 14:48:00 EST, Dosing Weight Start Date: 09/02/20 Status: Ordered thiamine 100 mg oral tablet (9 sources) Start: 03-08-2022 End: 10-12-2023 take 1 tablet by mouth once daily Completed/Discontinued Medications Medication Drug Class(es) Dates Sig (Normalized) Sig (Original) lisinopril 10 mg oral tablet (2 sources) Angiotensin Converting Enzyme Inhibitor Start: 12-23-2018 End: 12-13-2022 take 1 tablet by mouth once daily Lisinopril 10 tablet Discontinued 10 mg PO DAILY December 23, 2018 12:00am December 13, 2022 8:19am predniSONE 10 mg oral tablet (2 sources) Start: 10-13-2024 End: 10-29-2024 take 4 tablets by mouth once daily, then take 3 tablets by mouth once daily, then take 2 tablets by mouth once daily, then take 1 tablet by mouth once daily, then take 0.5 tablet by mouth once daily prednisone 10mg tab (TAPER) Taper 78-06-94-10-5 mg, Oral, Daily, Take 4 tabs daily x 5days, then 3 tabs daily x 3days, then 2 tabs daily x 3days,then 1 tab daily x 3days,then 1/2 tab daily x 4 days, # 40 tab(s), 0 Refill(s), [facility]: [id number], Right shoulder strain, 189.8, cm, 10/13/24 7:58:00 EDT, Height, kg, 10/13/24 7:58:00 EDT, Dosing Weight Start Date: 10/13/24 Stop Date: 10/29/24 Status: Ordered Medication Dispense Status: Completed Quantity: 40.0 Unit: tab(s) Total Allowed Fills: 1 Fills Dispensed: 0 Indications: Strain of unspecified muscle, fascia and tendon at shoulder and upper arm level, right arm, initial encounter; Problems Problem Classification Problem Date Documented Date Episodic/Chronic Alcohol-related disorders (20 sources) Alcoholism; Translations: [Moderate alcohol dependence] 06-13-2019 Chronic Allergic reactions (19 sources) Contact dermatitis 12-07-2021 Episodic Anxiety disorders (20 sources) Anxiety; Translations: [Generalized anxiety disorder] 01-03-2019 Chronic Crushing injury or internal injury (3 sources) Injury of kidney 09-09-2020 Episodic Diabetes mellitus without complication (20 sources) Type 2 diabetes mellitus; Translations: [Type 2 diabetes mellitus without complication] Onset: 07-27-2023 11-21-2019 Chronic Disorders of lipid metabolism (3 sources) Hyperlipidemia 02-29-2024 Chronic Essential hypertension (20 sources) Benign hypertension; Translations: [Essential hypertension] Onset: 07-27-2023 06-13-2019 Chronic Heart valve disorders (20 sources) Irregular heart beat 09-11-2020 Episodic Immunizations and screening for infectious disease (2 sources) Abnormal finding on evaluation procedure; Translations: [Other specified abnormal immunological findings in serum] Episodic Mood disorders (6 sources) Recurrent major depressive episodes, moderate 03-15-2024 Chronic Nausea and vomiting (18 sources) Vomiting 03-08-2022 Episodic Nonspecific chest pain (20 sources) Chest pain 09-11-2020 Episodic Other aftercare (3 sources) Long-term current use of drug therapy; Translations: [Other penitentiary (current) drug therapy] Episodic Other connective tissue disease (8 sources) Pain in both feet 09-12-2023 Episodic Other connective tissue disease (8 sources) 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 09-12-2023 Episodic Other inflammatory condition of skin (20 sources) Psoriatic arthritis; Translations: [Other psoriatic arthropathy] 01-03-2019 Chronic Other inflammatory condition of skin (2 sources) Psoriasis; Translations: [Other psoriasis] Chronic Other inflammatory condition of skin (1 source) Other psoriatic arthropathy; Translations: [Other psoriatic arthropathy] Onset: 02-14-2025 Chronic Other liver diseases (13 sources) Cirrhosis of liver; Translations: [Unspecified cirrhosis of liver] Chronic Other liver diseases (20 sources) Elevated liver enzymes level 09-09-2020 Episodic Other nervous system disorders (2 sources) Paresthesia; Translations: [Paresthesia of skin] 12-24-2018 Episodic Other skin disorders (10 sources) Mass of foot 07-27-2023 Episodic Residual codes; unclassified (6 sources) Nicotine-filled electronic cigarette user 10-26-2023 Episodic Thyroid disorders (20 sources) Hypothyroidism; Translations: [Hypothyroidism, unspecified] 09-12-2019 Chronic Unclassified (20 sources) Patient encounter status 07-19-2022 Results Test Name Value Interpretation Reference Range Facility Culture, Anaerobic Any Sourc joyce 02-14-2025 CUAN UNK UNK No growth in 5 days. Normal [facility] Comment on above: Performed By: #### M 100.4001, M100.2900, L200.4175, M100.2000, L200.0400 #### [facility] [address] [place], [address] Body Fluid Culton 02-12-2025 BFC UNK UNK No growth in 5 days. Normal [facility] Comment on above: Performed By: #### M 100.4001, M100.2900, L200.4175, M100.2000, L200.0400 #### [facility] [address] [place], [address] Synovial Fluid RBC, WBC AND Diffon 02-08-2025 OTHER CELL /SYN 10 Normal [facility] Comment on above: Result Comment: MACR OPHAGE AMENDED REPORT 02/08/25 1411 OTHER CELL /SYN previously reported as: 10 % Performed By: #### M 100.4001, M100.2900, L200.4175, M100.2000, L200.0400 #### [facility] [address] [place], [address] Crystals, Body Fluidon 02-07 PATH REV Reviewed Normal [facility] Comment on above: Result Comment: SUN TALS PRESENT, NEGATIVE FOR URIC ACID, SUGGESTIVE OF CALCIUM PYROPHOSPHATE. ACUTE INFLAMMATION. Shirley Chirinos MD 02/07/2025 AMENDED REPORT 02/07/25 1622 PATH REV previously reported as: Will follow Performed By: #### M 100.4001, M100.2900, L200.4175, M100.2000, L200.0400 #### [facility] [address] [place], [address] Gram Stainon 02-07-2025 GS UNK UNK Centrifuged Specimen? Culture performed on centrifuged specimen Gram Stain 1+ Red Blood Cells No organisms seen No White Blood Cells Normal [facility] Comment on above: Performed By: #### M 100.4001, M100.2900, L200.4175, M100.2000, L200.0400 #### [facility] [address] [place], [address] Anaerobic cultureOrdered By: Macario Mccurdy on 02-06-2025 Bacteria identified Anaer cx Nom (Unsp spec) No growth in 5 days. [facility] Automated synovial fluid mily kocytes count (number/volume)Ordered By: Macario Mccurdy on 02-06-2025 WBC Auto (Syn fld) [#/Vol] 5.5500 10^3/uL High 0.000-0.002 [facility] Automated synovial fluid mon onuclear cell count (number/volume)Ordered By: Macario Mccurdy on 02-06-2025 Mononuclear cells Auto (Syn fld) [#/Vol] 1.804 10^3/ul [facility] Automated synovial fluid kitty ymorphonuclear cell count (number/volume)Ordered By: Macario Mccurdy on 02-06-2025 Polymorphonuclear cells Auto (Syn fld) [#/Vol] 3.746 10^3/uL [facility] Automated synovial fluid kitty ymorphonuclear cells as percentage of leukocytesOrdered By: Macario Mccurdy on 02-06-2025 Polymorphonuclear cells/100 WBC Auto (Syn fld) 67.5 % [facility] Blood lymphocytes/100 leukoc ytesOrdered By: Macario Mccurdy on 02-06-2025 Lymphocytes/100 WBC (Bld) 9 % [facility] Body fluid crystal identific ation by light microscopyOrdered By: Macario Mccurdy on 02-06-2025 Crystals LM Nom (Body fld) NO CRYSTALS SEEN [facility] Comment on above: CRYSTAL RESULT IS PRELIMINARY. SEE PATH REVIEW FOR FINAL REPORT. Determination of appearance of synovial fluid (nominal result)Ordered By: Macario Mccurdy on 02-06-2025 Appearance (Syn fld) Turbid CLEAR [facility] Gram stainOrdered By: Macario Mccurdy on 02-06-2025 Microscopic observation Gram stain Nom (Unsp spec) [facility] Pathologist review of result s (narrative result)Ordered By: Macario Mccurdy on 02-06-2025 Pathologist review Ulysses (Unsp spec) [Interp] May follow [facility] Review by pathologistOrdered By: Macario Mccurdy on 02-06-2025 Pathologist review Ulysses (Unsp spec) [Interp] Reviewed [facility] Comment on above: Previous reported re sult: Will follow Edited by: GENEVA on 02/07/25:1622CRYSTALS PRESENT, NEGATIVE FOR URIC ACID, SUGGESTIVE OF CALCIUM PYROPHOSPHATE.ACUTE INFLAMMATION.Shirley Chirinos MD 02/07/2025 AMENDED REPORT 02/07/25 1622 PATH REV previously reported as: Will follow Specimen source identificati on of body fluidOrdered By: Macario Mccurdy on 02-06-2025 Specimen source Nom (Body fld) SYNOVIAL [facility] Specimen source Nom (Body fld) RGHT KNEE [facility] Synovial fluid color determi nation (nominal result)Ordered By: Macario Mccurdy on 02-06-2025 Color (Syn fld) Straw Pale Yellow [facility] Synovial fluid erythrocytes count (number/volume)Ordered By: Macario Mccurdy on 02-06-2025 RBC (Syn fld) [#/Vol] 559 /mm3 High 0-0 [facility] Synovial fluid monocyte perc entageOrdered By: Macario Mccurdy on 02-06-2025 Monocytes/100 WBC (Syn fld) 13 % [facility] Synovial fluid mononuclear c ells/100 leukocytesOrdered By: Macario Mccurdy on 02-06-2025 Mononuclear cells/100 WBC (Syn fld) 32.5 % [facility] Synovial fluid neutrophil pe rcentageOrdered By: Macario Mccurdy on 02-06-2025 Neutrophils/100 WBC (Syn fld) 68 % High 0-25 [facility] Synovial fluid other cells/1 00 leukocytes identificationOrdered By: Macario Mccurdy on 02-06-2025 Other cells/100 WBC Nom (Syn fld) 10 % [facility] Comment on above: MACROPHAGEPrevious r eported result: 10 %Edited by: MADELEINE on 02/08/25:1411 AMENDED REPORT 02/08/25 1411 OTHER CELL /SYN previously reported as: 10 % Synovial fluid total cell co untOrdered By: Macario Mccurdy on 02-06-2025 Cells Counted Total (Syn fld) [#] 5.7170 10^3/uL High 0.000-0.000 [facility] Comment on above: This is the Total Nu mber of Nucleated Cell Types in the Body Fluid. US ABDOMEN COMPLETEon 2024 US ABDOMEN COMPLETE ORIGINAL EXAMINATION: COMPLETE ABDOMINAL ULTRASOUND 01/24/2025 9:09 am COMPARISON: 06/20/2024 HISTORY: ORDERING SYSTEM PROVIDED HISTORY: Reason for Exam: CIRRHOSIS CHRONIC LIVER DISEASE DUE TO ALCOHOL All images are recorded and archived. FINDINGS: LIVER: Liver measures 16.4 cm in length with a smooth contour. There is moderate increased echotexture throughout the hepatic parenchyma suggesting fatty change or fibrosis. There is no solid hepatic mass. A 8 mm cyst is seen in the inferior right lower lobe. There is normal hepatopetal flow in the main portal vein. BILIARY SYSTEM: Gallbladder is unremarkable without evidence of pericholecystic fluid, wall thickening or stones. Negative sonographic Strauss's sign. Common bile duct is within normal limits measuring 4.3 mm. KIDNEYS: 6 right and left kidneys measure 10.3 x 6.5 x 6.7 cm, and 10.3 x 5.8 x 6.8 cm respectively. There is normal renal cortical thickness and echotexture without stone disease. PANCREAS: Pancreas is poorly visualized despite multiple maneuvers and attempted water pancreas technique. SPLEEN: Spleen homogeneous in echotexture measuring 13.3 x 13.1 x 4.7 cm. IVC: The IVC is patent. AORTA: Aorta is patent without aneurysm. OTHER: No evidence of ascites. IMPRESSION: 1. Moderate fatty change or fibrosis of the liver. 2. No acute intra-abdominal process. Interpreted by: Adolfo Parks DO Preliminary Report By: Adolfo Parks DO Electronically signed By Adolfo Parks DO Dictated Date: 01/24/2025 3:30:29 PM Prelim Date: 01/24/2025 3:32:55 PM Sign Date: 01/24/2025 3:32:55 PM Ordering Provider: FLY DENG Normal [facility] .Auto Diffon 12-27-2024 Basophil, Absolute 0.1 10 3/mcL Normal 0.0-0.3 [facility] Comment on above: Performed By: #### C MP, CBC, ANEU, ADIFF, GFR #### [facility] [address] [place], [place] [address] Basophils/100 WBC (Bld) 0.7 % Normal 0.0-2.5 [facility] Comment on above: Performed By: #### C MP, CBC, ANEU, ADIFF, GFR #### [address] [address] Eosinophil, Absolute 0.3 10 3/mcL Normal 0.0-0.7 [facility] Comment on above: Performed By: #### C MP, CBC, ANEU, ADIFF, GFR #### [address] [address] Eosinophils/100 WBC (Bld) 3.5 % Normal 0.0-6.0 [facility] Comment on above: Performed By: #### C MP, CBC, ANEU, ADIFF, GFR #### [address] [address] Lymphocyte, Absolute 1.7 10 3/mcL Normal 0.9-4.3 [facility] Comment on above: Performed By: #### C MP, CBC, ANEU, ADIFF, GFR #### [address] [address] Lymphocytes/100 WBC (Bld) 22.8 % Normal 20.0-40.0 [facility] Comment on above: Performed By: #### C MP, CBC, ANEU, ADIFF, GFR #### [address] [address] Monocyte, Absolute 0.7 10 3/mcL Normal 0.1-1.4 [facility] Comment on above: Performed By: #### C MP, CBC, ANEU, ADIFF, GFR #### [address] [address] Monocytes/100 WBC (Bld) 9.6 % Normal 2.0-13.0 [facility] Comment on above: Performed By: #### C MP, CBC, ANEU, ADIFF, GFR #### [address] [address] Neutrophils/100 WBC (Bld) 63.4 % Normal 50.0-75.0 [facility] Comment on above: Performed By: #### C MP, CBC, ANEU, ADIFF, GFR #### [address] [address] .GFRon 12-27-2024 Estimated Glomerular Filtration Rate 119 ml/min/1.73sqm Normal [facility] Comment on above: Result Comment: Stages of Chronic Kidney Disease (CKD) Stage Description eGFR(ml/min/1.73 sq.m.) CKD 1 Normal kidney function or >=90 normal kindney function with possible kidney damage (ex. Proteinuria) CKD 2 Kidney damage with mild loss 60-89 of kidney function CKD 3a Mild to moderate loss of kidney 45-59 function CKD 3b Moderate to severe loss of 30-44 of kindey function CKD 4 Severe loss of kidney function 15-29 CKD 5 Kidney failure <15 Note: (go live 2024) the eGFR calculation was updated to the 2020 CKD-EPI creatinine equation without a race factor to calculate the eGFR results. Performed By: #### C MP, CBC, ANEU, ADIFF, GFR #### [place] [address] .NEUABSon 12-27-2024 Neutrophil, Absolute 4.7 10 3/mcL Normal 2.3-8.1 [facility] Comment on above: Performed By: #### C MP, CBC, ANEU, ADIFF, GFR #### [place] [id number] CBCon 12-27-2024 Erythrocyte distribution width (RBC) [Ratio] 12.8 % Normal 11.5-15.5 [facility] Comment on above: Performed By: #### C MP, CBC, ANEU, ADIFF, GFR #### [place] [id number] Hematocrit (Bld) [Volume fraction] 46.8 % Normal 40.0-52.0 [facility] Comment on above: Performed By: #### C MP, CBC, ANEU, ADIFF, GFR #### [place] [id number] Hgb 16.0 G/dL Normal 13.0-17.5 [facility] Comment on above: Performed By: #### C MP, CBC, ANEU, ADIFF, GFR #### [address] [address] MCH (RBC) [Entitic mass] 30.5 pg Normal 27.0-33.0 [facility] Comment on above: Performed By: #### C MP, CBC, ANEU, ADIFF, GFR #### [address] [address] MCHC 34.2 G/dL Normal 32.0-36.0 [facility] Comment on above: Performed By: #### C MP, CBC, ANEU, ADIFF, GFR #### [address] [address] MCV (RBC) [Entitic vol] 89.0 fL Normal 81.0-100.0 [facility] Comment on above: Performed By: #### C MP, CBC, ANEU, ADIFF, GFR #### [place] [id number] Platelet 300 10 3/mcL Normal 150-450 [facility] Comment on above: Performed By: #### C MP, CBC, ANEU, ADIFF, GFR #### [address] [address] Platelet mean volume (Bld) [Entitic vol] 7.2 fL Normal 6.4-10.5 [facility] Comment on above: Performed By: #### C MP, CBC, ANEU, ADIFF, GFR #### [place] [id number] RBC 5.26 10 6/mcL Normal 4.50-6.00 [facility] Comment on above: Performed By: #### C MP, CBC, ANEU, ADIFF, GFR #### [address] [address] WBC 7.4 10 3/mcL Normal 4.5-10.8 [facility] Comment on above: Performed By: #### C MP, CBC, ANEU, ADIFF, GFR #### [address] [address] CMPon 12-27-2024 Albumin Level 4.2 G/dL Normal 3.5-5.0 [facility] Comment on above: Performed By: #### C MP, CBC, ANEU, ADIFF, GFR #### [address] [address] Albumin/Globulin [Mass ratio] 1.1 {ratio} Normal 1.1-2.5 [facility] Comment on above: Performed By: #### C MP, CBC, ANEU, ADIFF, GFR #### [address] [address] ALP [Catalytic activity/Vol] 83 U/L Normal 40-135 [facility] Comment on above: Performed By: #### C MP, CBC, ANEU, ADIFF, GFR #### [address] [address] ALT [Catalytic activity/Vol] 57 U/L Normal 16-63 [facility] Comment on above: Performed By: #### C MP, CBC, ANEU, ADIFF, GFR #### [address] [address] AST [Catalytic activity/Vol] 24 U/L Normal 10-40 [facility] Comment on above: Performed By: #### C MP, CBC, ANEU, ADIFF, GFR #### [address] [address] Bili Total 0.6 mg/dL Normal 0.2-1.0 [facility] Comment on above: Result Comment: Use of this assay is not recommended for patients undergoing treatment with eltrombopag due to the potential for falsely elevated results. Performed By: #### C MP, CBC, ANEU, ADIFF, GFR #### [address] [address] BUN/Creatinine Ratio 19 ratio Normal 7-27 [facility] Comment on above: Performed By: #### C MP, CBC, ANEU, ADIFF, GFR #### [address] [address] Calcium [Mass/Vol] 10.1 mg/dL Normal 8.4-10.2 [facility] Comment on above: Performed By: #### C MP, CBC, ANEU, ADIFF, GFR #### [place] [address] Chloride [Moles/Vol] 103 mmol/L Normal 98-107 [facility] Comment on above: Performed By: #### C MP, CBC, ANEU, ADIFF, GFR #### [place] [address] CO2 [Moles/Vol] 33 mmol/L High 22-29 [facility] Comment on above: Performed By: #### C MP, CBC, ANEU, ADIFF, GFR #### [place] [address] Creatinine [Mass/Vol] 0.86 mg/dL Normal 0.67-1.17 [facility] Comment on above: Performed By: #### C MP, CBC, ANEU, ADIFF, GFR #### [place] [address] Electrolyte Balance 4.0 mEq/L Normal 4.0-15.0 [facility] Comment on above: Performed By: #### C MP, CBC, ANEU, ADIFF, GFR #### [place] [address] Globulin 3.9 G/dL Normal 2.7-4.4 [facility] Comment on above: Performed By: #### C MP, CBC, ANEU, ADIFF, GFR #### [place] [address] Glucose [Mass/Vol] 83 mg/dL Normal 70-105 [facility] Comment on above: Performed By: #### C MP, CBC, ANEU, ADIFF, GFR #### [place] [address] Potassium [Moles/Vol] 4.3 mmol/L Normal 3.5-5.1 [facility] Comment on above: Performed By: #### C MP, CBC, ANEU, ADIFF, GFR #### [place] [phone] Sodium [Moles/Vol] 140 mmol/L Normal 136-145 [facility] Comment on above: Performed By: #### C MP, CBC, ANEU, ADIFF, GFR #### [place] [address] [place], [place] [address] Total Protein 8.1 G/dL Normal 6.4-8.2 [facility] Comment on above: Performed By: #### C MP, CBC, ANEU, ADIFF, GFR #### [place] [address] [place], [place] [address] Urea nitrogen [Mass/Vol] 16 mg/dL Normal 7-18 [facility] Comment on above: Performed By: #### C MP, CBC, ANEU, ADIFF, GFR #### [place] [address] [place], [place] [address] LABORATORYOrdered By: SYSTEM SYSTEM on 12-27-2024 Albumin BCP dye [Mass/Vol] 4.2 G/dL Normal 3.5 - 5.0 G/dL AO ADM SS Albumin/Globulin [Mass ratio] 1.1 {ratio} Normal 1.1 - 2.5 ratio AO ADM SS ALP [Catalytic activity/Vol] 83 U/L Normal 40 - 135 U/L AO ADM SS ALT With P-5'-P [Catalytic activity/Vol] 57 U/L Normal 16 - 63 U/L AO ADM SS AST With P-5'-P [Catalytic activity/Vol] 24 U/L Normal 10 - 40 U/L AO ADM SS Basophils (Bld) [#/Vol] 0.1 103/mcL Normal 0.0 - 0.3 10^3/mcL AO Workflow SS Basophils/100 WBC (Bld) 0.7 % Normal 0.0 - 2.5 % AO Workflow SS Bilirubin [Mass/Vol] 0.6 mg/dL Normal 0.2 - 1 .0 mg/dL AO ADM SS Comment on above: Interpretive Data: U se of this assay is not recommended for patients undergoing treatment with eltrombopag due to the potential for falsely elevated results. Calcium [Mass/Vol] 10.1 mg/dL Normal 8.4 - 10. 2 mg/dL AO ADM SS Chloride [Moles/Vol] 103 mmol/L Normal 98 - 10 7 mmol/L AO ADM SS CO2 [Moles/Vol] 33 mmol/L High 22 - 29 mmol/L AO ADM SS Creatinine [Mass/Vol] 0.86 mg/dL Normal 0.67 - 1.17 mg/dL AO ADM SS Electrolyte Balance 4.0 mEq/L Normal 4.0 - 15 .0 mEq/L AO ADM SS Eosinophil, Absolute 0.3 103/mcL Normal 0.0 - 0 .7 10^3/mcL AO Workflow SS Eosinophils/100 WBC (Bld) 3.5 % Normal 0.0 - 6.0 % AO Workflow SS Erythrocyte distribution width (RBC) [Ratio] 12.8 % Normal 11.5 - 15.5 % AO Workflow SS Estimated Glomerular Filtration Rate 119 ml/min/1.73sqm Invalid Interpretation Code AO Chemistry S Comment on above: Interpretive Data: Stages of Chronic Kidney Disease (CKD) Stage Description eGFR(ml/min/1.73 sq.m.) CKD 1 Normal kidney function or >=90 normal kindney function with possible kidney damage (ex. Proteinuria) CKD 2 Kidney damage with mild loss 60-89 of kidney function CKD 3a Mild to moderate loss of kidney 45-59 function CKD 3b Moderate to severe loss of 30-44 of kindey function CKD 4 Severe loss of kidney function 15-29 CKD 5 Kidney failure <15 Note: (go live 2024) the eGFR calculation was updated to the 2020 CKD-EPI creatinine equation without a race factor to calculate the eGFR results. Globulin 3.9 G/dL Normal 2.7 - 4.4 G/dL AO ADM SS Glucose [Mass/Vol] 83 mg/dL Normal 70 - 105 mg/dL AO ADM SS Hematocrit (Bld) [Volume fraction] 46.8 % Normal 40.0 - 52.0 % AO Workflow SS Hemoglobin (Bld) [Mass/Vol] 16.0 G/dL Normal 13.0 - 17.5 G/dL AO Workflow SS Lymphocytes (Bld) [#/Vol] 1.7 103/mcL Normal 0.9 - 4.3 10^3/mcL AO Workflow SS Lymphocytes/100 WBC (Bld) 22.8 % Normal 20.0 - 40.0 % AO Workflow SS MCH (RBC) [Entitic mass] 30.5 pg Normal 27. 0 - 33.0 pg AO Workflow SS MCHC 34.2 G/dL Normal 32.0 - 36.0 G/dL AO Workflow SS MCV (RBC) [Entitic vol] 89.0 fL Normal 81.0 - 100.0 fL AO Workflow SS Monocytes (Bld) [#/Vol] 0.7 103/mcL Normal 0.1 - 1.4 10^3/mcL AO Workflow SS Monocytes/100 WBC (Bld) 9.6 % Normal 2.0 - 13.0 % AO Workflow SS Neutrophils (Bld) [#/Vol] 4.7 103/mcL Normal 2.3 - 8.1 10^3/mcL AO Workflow SS Neutrophils/100 WBC (Bld) 63.4 % Normal 50.0 - 75.0 % AO Workflow SS Platelet mean volume (Bld) [Entitic vol] 7.2 fL Normal 6.4 - 10.5 fL AO Workflow SS Platelets (Bld) [#/Vol] 300 103/mcL Normal 150 - 450 10^3/mcL AO Workflow SS Potassium [Moles/Vol] 4.3 mmol/L Normal 3.5 - 5.1 mmol/L AO ADM SS Protein [Mass/Vol] 8.1 G/dL Normal 6.4 - 8.2 G/dL AO ADM SS RBC (Bld) [#/Vol] 5.26 106/mcL Normal 4.50 - 6.0 0 10^6/mcL AO Workflow SS Sodium [Moles/Vol] 140 mmol/L Normal 136 - 145 mmol/L AO ADM SS Urea nitrogen [Mass/Vol] 16 mg/dL Normal 7 - 18 mg/dL AO ADM SS Urea nitrogen/Creatinine [Mass ratio] 19 ratio Normal 7 - 27 ratio AO ADM SS WBC (Bld) [#/Vol] 7.4 103/mcL Normal 4.5 - 10.8 10^3/mcL AO Workflow SS .Auto Diffon 09-20-2024 Basophil, Absolute 0.0 10 3/mcL Normal 0.0-0.3 [facility] Comment on above: Performed By: #### C MP, CBC, ANEU, ADIFF, GFR #### [place] [place] [id number] [place], [place] [address] Basophils/100 WBC (Bld) 0.9 % Normal 0.0-2.5 [facility] Comment on above: Performed By: #### C MP, CBC, ANEU, ADIFF, GFR #### [address] [address] Eosinophil, Absolute 0.2 10 3/mcL Normal 0.0-0.7 [facility] Comment on above: Performed By: #### C MP, CBC, ANEU, ADIFF, GFR #### [address] [address] Eosinophils/100 WBC (Bld) 4.2 % Normal 0.0-6.0 [facility] Comment on above: Performed By: #### C MP, CBC, ANEU, ADIFF, GFR #### [address] [address] Lymphocyte, Absolute 1.8 10 3/mcL Normal 0.9-4.3 [facility] Comment on above: Performed By: #### C MP, CBC, ANEU, ADIFF, GFR #### [address] [address] Lymphocytes/100 WBC (Bld) 35.1 % Normal 20.0-40.0 [facility] Comment on above: Performed By: #### C MP, CBC, ANEU, ADIFF, GFR #### [address] [address] Monocyte, Absolute 0.6 10 3/mcL Normal 0.1-1.4 [facility] Comment on above: Performed By: #### C MP, CBC, ANEU, ADIFF, GFR #### [address] [address] Monocytes/100 WBC (Bld) 11.9 % Normal 2.0-13.0 [facility] Comment on above: Performed By: #### C MP, CBC, ANEU, ADIFF, GFR #### [address] [address] Neutrophils/100 WBC (Bld) 47.9 % Low 50.0-75.0 [facility] Comment on above: Performed By: #### C MP, CBC, ANEU, ADIFF, GFR #### [address] [address] .GFRon 09-20-2024 Estimated Glomerular Filtration Rate 119 ml/min/1.73sqm Normal [facility] Comment on above: Result Comment: Stages of Chronic Kidney Disease (CKD) Stage Description eGFR(ml/min/1.73 sq.m.) CKD 1 Normal kidney function or >=90 normal kindney function with possible kidney damage (ex. Proteinuria) CKD 2 Kidney damage with mild loss 60-89 of kidney function CKD 3a Mild to moderate loss of kidney 45-59 function CKD 3b Moderate to severe loss of 30-44 of kindey function CKD 4 Severe loss of kidney function 15-29 CKD 5 Kidney failure <15 Note: (go live 2024) the eGFR calculation was updated to the 2020 CKD-EPI creatinine equation without a race factor to calculate the eGFR results. Performed By: #### C MP, CBC, ANEU, ADIFF, GFR #### [address] [address] .NEUABSon 09-20-2024 Neutrophil, Absolute 2.4 10 3/mcL Normal 2.3-8.1 [facility] Comment on above: Performed By: #### C MP, CBC, ANEU, ADIFF, GFR #### [address] [address] CBCon 09-20-2024 Erythrocyte distribution width (RBC) [Ratio] 13.1 % Normal 11.5-15.5 [facility] Comment on above: Performed By: #### C MP, CBC, ANEU, ADIFF, GFR #### [address] [address] Hematocrit (Bld) [Volume fraction] 43.5 % Normal 40.0-52.0 [facility] Comment on above: Performed By: #### C MP, CBC, ANEU, ADIFF, GFR #### [address] [address] Hgb 14.9 G/dL Normal 13.0-17.5 [facility] Comment on above: Performed By: #### C MP, CBC, ANEU, ADIFF, GFR #### [address] [address] MCH (RBC) [Entitic mass] 30.8 pg Normal 27.0-33.0 [facility] Comment on above: Performed By: #### C MP, CBC, ANEU, ADIFF, GFR #### [address] [address] MCHC 34.2 G/dL Normal 32.0-36.0 [facility] Comment on above: Performed By: #### C MP, CBC, ANEU, ADIFF, GFR #### [address] [address] MCV (RBC) [Entitic vol] 90.0 fL Normal 81.0-100.0 [facility] Comment on above: Performed By: #### C MP, CBC, ANEU, ADIFF, GFR #### [address] [address] Platelet 251 10 3/mcL Normal 150-450 [facility] Comment on above: Performed By: #### C MP, CBC, ANEU, ADIFF, GFR #### [address] [address] Platelet mean volume (Bld) [Entitic vol] 7.0 fL Normal 6.4-10.5 [facility] Comment on above: Performed By: #### C MP, CBC, ANEU, ADIFF, GFR #### [address] [address] RBC 4.83 10 6/mcL Normal 4.50-6.00 [facility] Comment on above: Performed By: #### C MP, CBC, ANEU, ADIFF, GFR #### [address] [address] WBC 5.0 10 3/mcL Normal 4.5-10.8 [facility] Comment on above: Performed By: #### C MP, CBC, ANEU, ADIFF, GFR #### [address] [address] CMPon 09-20-2024 Albumin Level 4.1 G/dL Normal 3.5-5.0 [facility] Comment on above: Performed By: #### C MP, CBC, ANEU, ADIFF, GFR #### [address] [address] Albumin/Globulin [Mass ratio] 1.2 {ratio} Normal 1.1-2.5 [facility] Comment on above: Performed By: #### C MP, CBC, ANEU, ADIFF, GFR #### [address] [address] ALP [Catalytic activity/Vol] 74 U/L Normal 40-135 [facility] Comment on above: Performed By: #### C MP, CBC, ANEU, ADIFF, GFR #### [address] [address] ALT [Catalytic activity/Vol] 41 U/L Normal 16-63 [facility] Comment on above: Performed By: #### C MP, CBC, ANEU, ADIFF, GFR #### [address] [address] AST [Catalytic activity/Vol] 26 U/L Normal 10-40 [facility] Comment on above: Performed By: #### C MP, CBC, ANEU, ADIFF, GFR #### [address] [address] Bili Total 0.6 mg/dL Normal 0.2-1.0 [facility] Comment on above: Result Comment: Use of this assay is not recommended for patients undergoing treatment with eltrombopag due to the potential for falsely elevated results. Performed By: #### C MP, CBC, ANEU, ADIFF, GFR #### [address] [address] BUN/Creatinine Ratio 18 ratio Normal 7-27 [facility] Comment on above: Performed By: #### C MP, CBC, ANEU, ADIFF, GFR #### [address] [address] Calcium [Mass/Vol] 9.1 mg/dL Normal 8.4-10.2 [facility] Comment on above: Performed By: #### C MP, CBC, ANEU, ADIFF, GFR #### [place] [address] Chloride [Moles/Vol] 103 mmol/L Normal 98-107 [facility] Comment on above: Performed By: #### C MP, CBC, ANEU, ADIFF, GFR #### [place] [address] CO2 [Moles/Vol] 30 mmol/L High 22-29 [facility] Comment on above: Performed By: #### C MP, CBC, ANEU, ADIFF, GFR #### [place] [address] Creatinine [Mass/Vol] 0.87 mg/dL Normal 0.67-1.17 [facility] Comment on above: Performed By: #### C MP, CBC, ANEU, ADIFF, GFR #### [place] [address] Electrolyte Balance 7.0 mEq/L Normal 4.0-15.0 [facility] Comment on above: Performed By: #### C MP, CBC, ANEU, ADIFF, GFR #### [place] [address] Globulin 3.4 G/dL Normal 2.7-4.4 [facility] Comment on above: Performed By: #### C MP, CBC, ANEU, ADIFF, GFR #### [place] [address] Glucose [Mass/Vol] 91 mg/dL Normal 70-105 [facility] Comment on above: Performed By: #### C MP, CBC, ANEU, ADIFF, GFR #### [place] [address] Potassium [Moles/Vol] 4.6 mmol/L Normal 3.5-5.1 [facility] Comment on above: Performed By: #### C MP, CBC, ANEU, ADIFF, GFR #### [address] [address] Sodium [Moles/Vol] 140 mmol/L Normal 136-145 [facility] Comment on above: Performed By: #### C MP, CBC, ANEU, ADIFF, GFR #### [address] [address] Total Protein 7.5 G/dL Normal 6.4-8.2 [facility] Comment on above: Performed By: #### C MP, CBC, ANEU, ADIFF, GFR #### [address] [address] Urea nitrogen [Mass/Vol] 16 mg/dL Normal 7-18 [facility] Comment on above: Performed By: #### C MP, CBC, ANEU, ADIFF, GFR #### [address] [address] LABORATORYOrdered By: SYSTEM SYSTEM on 09-20-2024 Albumin BCP dye [Mass/Vol] 4.1 G/dL Normal 3.5 - 5.0 G/dL AO ADM SS Albumin/Globulin [Mass ratio] 1.2 {ratio} Normal 1.1 - 2.5 ratio AO ADM SS ALP [Catalytic activity/Vol] 74 U/L Normal 40 - 135 U/L AO ADM SS ALT With P-5'-P [Catalytic activity/Vol] 41 U/L Normal 16 - 63 U/L AO ADM SS AST With P-5'-P [Catalytic activity/Vol] 26 U/L Normal 10 - 40 U/L AO ADM SS Basophils (Bld) [#/Vol] 0.0 103/mcL Normal 0.0 - 0.3 10^3/mcL AO Workflow SS Basophils/100 WBC (Bld) 0.9 % Normal 0.0 - 2.5 % AO Workflow SS Bilirubin [Mass/Vol] 0.6 mg/dL Normal 0.2 - 1 .0 mg/dL AO ADM SS Comment on above: Interpretive Data: U se of this assay is not recommended for patients undergoing treatment with eltrombopag due to the potential for falsely elevated results. Calcium [Mass/Vol] 9.1 mg/dL Normal 8.4 - 10. 2 mg/dL AO ADM SS Chloride [Moles/Vol] 103 mmol/L Normal 98 - 10 7 mmol/L AO ADM SS CO2 [Moles/Vol] 30 mmol/L High 22 - 29 mmol/L AO ADM SS Creatinine [Mass/Vol] 0.87 mg/dL Normal 0.67 - 1.17 mg/dL AO ADM SS Electrolyte Balance 7.0 mEq/L Normal 4.0 - 15 .0 mEq/L AO ADM SS Eosinophil, Absolute 0.2 103/mcL Normal 0.0 - 0 .7 10^3/mcL AO Workflow SS Eosinophils/100 WBC (Bld) 4.2 % Normal 0.0 - 6.0 % AO Workflow SS Erythrocyte distribution width (RBC) [Ratio] 13.1 % Normal 11.5 - 15.5 % AO Workflow SS Estimated Glomerular Filtration Rate 119 ml/min/1.73sqm Invalid Interpretation Code AO Chemistry S Comment on above: Interpretive Data: Stages of Chronic Kidney Disease (CKD) Stage Description eGFR(ml/min/1.73 sq.m.) CKD 1 Normal kidney function or >=90 normal kindney function with possible kidney damage (ex. Proteinuria) CKD 2 Kidney damage with mild loss 60-89 of kidney function CKD 3a Mild to moderate loss of kidney 45-59 function CKD 3b Moderate to severe loss of 30-44 of kindey function CKD 4 Severe loss of kidney function 15-29 CKD 5 Kidney failure <15 Note: (go live 2024) the eGFR calculation was updated to the 2020 CKD-EPI creatinine equation without a race factor to calculate the eGFR results. Globulin 3.4 G/dL Normal 2.7 - 4.4 G/dL AO ADM SS Glucose [Mass/Vol] 91 mg/dL Normal 70 - 105 mg/dL AO ADM SS Hematocrit (Bld) [Volume fraction] 43.5 % Normal 40.0 - 52.0 % AO Workflow SS Hemoglobin (Bld) [Mass/Vol] 14.9 G/dL Normal 13.0 - 17.5 G/dL AO Workflow SS Lymphocytes (Bld) [#/Vol] 1.8 103/mcL Normal 0.9 - 4.3 10^3/mcL AO Workflow SS Lymphocytes/100 WBC (Bld) 35.1 % Normal 20.0 - 40.0 % AO Workflow SS MCH (RBC) [Entitic mass] 30.8 pg Normal 27. 0 - 33.0 pg AO Workflow SS MCHC 34.2 G/dL Normal 32.0 - 36.0 G/dL AO Workflow SS MCV (RBC) [Entitic vol] 90.0 fL Normal 81.0 - 100.0 fL AO Workflow SS Monocytes (Bld) [#/Vol] 0.6 103/mcL Normal 0.1 - 1.4 10^3/mcL AO Workflow SS Monocytes/100 WBC (Bld) 11.9 % Normal 2.0 - 13.0 % AO Workflow SS Neutrophils (Bld) [#/Vol] 2.4 103/mcL Normal 2.3 - 8.1 10^3/mcL AO Workflow SS Neutrophils/100 WBC (Bld) 47.9 % Low 50.0 - 75.0 % AO Workflow SS Platelet mean volume (Bld) [Entitic vol] 7.0 fL Normal 6.4 - 10.5 fL AO Workflow SS Platelets (Bld) [#/Vol] 251 103/mcL Normal 150 - 450 10^3/mcL AO Workflow SS Potassium [Moles/Vol] 4.6 mmol/L Normal 3.5 - 5.1 mmol/L AO ADM SS Protein [Mass/Vol] 7.5 G/dL Normal 6.4 - 8.2 G/dL AO ADM SS RBC (Bld) [#/Vol] 4.83 106/mcL Normal 4.50 - 6.0 0 10^6/mcL AO Workflow SS Sodium [Moles/Vol] 140 mmol/L Normal 136 - 145 mmol/L AO ADM SS Urea nitrogen [Mass/Vol] 16 mg/dL Normal 7 - 18 mg/dL AO ADM SS Urea nitrogen/Creatinine [Mass ratio] 18 ratio Normal 7 - 27 ratio AO ADM SS WBC (Bld) [#/Vol] 5.0 103/mcL Normal 4.5 - 10.8 10^3/mcL AO Workflow SS APTTon 08-28-2024 aPTT Coag (Bld) [Time] 36.4 s High 25.0-35.0 [facility] Comment on above: Result Comment: For Heparin anticoagulation therapy, the recommended therapeutic range is: 45.4-75.9 seconds. Patients on heparin therapy may have an extreme result. Performed By: #### A PTT #### [facility] [address], [place] [address] MALBRon 08-28-2024 U Creatinine 78.0 mg/dL Normal [facility] Comment on above: Performed By: #### M ALBR #### [address] [address] U Microalb 3.5 mg/L Normal [facility] Comment on above: Performed By: #### M ALBR #### [address] [address] U Ratio Alb/Cre 4 mg/G Normal 0-30 [facility] Comment on above: Performed By: #### M ALBR #### [address] [address] [address] .Auto Diffon 08-24-2024 Basophil, Absolute 0.1 10 3/mcL Normal 0.0-0.3 [facility] Comment on above: Performed By: #### C MP, CBC, ANEU, ADIFF, GFR #### [address] [address] Basophils/100 WBC (Bld) 1.0 % Normal 0.0-2.5 [facility] Comment on above: Performed By: #### C MP, CBC, ANEU, ADIFF, GFR #### [address] [address] Eosinophil, Absolute 0.2 10 3/mcL Normal 0.0-0.7 [facility] Comment on above: Performed By: #### C MP, CBC, ANEU, ADIFF, GFR #### [address] [address] Eosinophils/100 WBC (Bld) 3.5 % Normal 0.0-6.0 [facility] Comment on above: Performed By: #### C MP, CBC, ANEU, ADIFF, GFR #### [address] [address] Lymphocyte, Absolute 1.9 10 3/mcL Normal 0.9-4.3 [facility] Comment on above: Performed By: #### C MP, CBC, ANEU, ADIFF, GFR #### [address] [address] Lymphocytes/100 WBC (Bld) 29.7 % Normal 20.0-40.0 [facility] Comment on above: Performed By: #### C MP, CBC, ANEU, ADIFF, GFR #### [address] [address] Monocyte, Absolute 0.6 10 3/mcL Normal 0.1-1.4 [facility] Comment on above: Performed By: #### C MP, CBC, ANEU, ADIFF, GFR #### [address] [address] Monocytes/100 WBC (Bld) 9.0 % Normal 2.0-13.0 [facility] Comment on above: Performed By: #### C MP, CBC, ANEU, ADIFF, GFR #### [address] [address] Neutrophils/100 WBC (Bld) 56.8 % Normal 50.0-75.0 [facility] Comment on above: Performed By: #### C MP, CBC, ANEU, ADIFF, GFR #### [address] [address] .GFRon 08-24-2024 Estimated Glomerular Filtration Rate 105 ml/min/1.73sqm Normal [facility] Comment on above: Result Comment: Stages of Chronic Kidney Disease (CKD) Stage Description eGFR(ml/min/1.73 sq.m.) CKD 1 Normal kidney function or >=90 normal kindney function with possible kidney damage (ex. Proteinuria) CKD 2 Kidney damage with mild loss 60-89 of kidney function CKD 3a Mild to moderate loss of kidney 45-59 function CKD 3b Moderate to severe loss of 30-44 of kindey function CKD 4 Severe loss of kidney function 15-29 CKD 5 Kidney failure <15 Note: (go live 2024) the eGFR calculation was updated to the 2020 CKD-EPI creatinine equation without a race factor to calculate the eGFR results. Performed By: #### C MP, CBC, ANEU, ADIFF, GFR #### [address] [address] .NEUABSon 08-24-2024 Neutrophil, Absolute 3.6 10 3/mcL Normal 2.3-8.1 [facility] Comment on above: Performed By: #### C MP, CBC, ANEU, ADIFF, GFR #### [place] [place] [address] [place], [place] [address] A1Con 08-24-2024 Glucose [Mass/Vol] 103 mg/dL Normal [facility] Comment on above: Result Comment: Livier mated Average Glucose calculated by equation ((28.7xA1C)-46.7) Estimated average glucose (eAG) is a calculated value from Hemoglobin A1C and is access services representative of the average blood glucose level in the last 2-3 month period. Normal range: less than 114 mg/dL Performed By: #### C MP, CBC, ANEU, ADIFF, GFR #### [address] [address] HbA1c (Bld) [Mass fraction] 5.2 % Normal 4.3-6.4 [facility] Comment on above: Performed By: #### C MP, CBC, ANEU, ADIFF, GFR #### [address] [address] AFPSon 08-24-2024 AFP, Tumor Marker 5.1 ng/mL Normal 0.0-8.5 [facility] Comment on above: Result Comment: Test ing performed on the [employer] IM analyzer using direct chemiluminesent technology. Patient results determined by assays using different manufacturers for methods may not be comparable. Performed By: #### C MP, CBC, ANEU, ADIFF, GFR #### [address] [address] CBCon 08-24-2024 Erythrocyte distribution width (RBC) [Ratio] 13.2 % Normal 11.5-15.5 [facility] Comment on above: Performed By: #### C MP, CBC, ANEU, ADIFF, GFR #### [address] [address] Hematocrit (Bld) [Volume fraction] 48.3 % Normal 40.0-52.0 [facility] Comment on above: Performed By: #### C MP, CBC, ANEU, ADIFF, GFR #### [place] [address] Hgb 16.4 G/dL Normal 13.0-17.5 [facility] Comment on above: Performed By: #### C MP, CBC, ANEU, ADIFF, GFR #### [place] [address] MCH (RBC) [Entitic mass] 30.8 pg Normal 27.0-33.0 [facility] Comment on above: Performed By: #### C MP, CBC, ANEU, ADIFF, GFR #### [place] [address] MCHC 34.0 G/dL Normal 32.0-36.0 [facility] Comment on above: Performed By: #### C MP, CBC, ANEU, ADIFF, GFR #### [place] [address] MCV (RBC) [Entitic vol] 90.4 fL Normal 81.0-100.0 [facility] Comment on above: Performed By: #### C MP, CBC, ANEU, ADIFF, GFR #### [place] [address] Platelet 300 10 3/mcL Normal 150-450 [facility] Comment on above: Performed By: #### C MP, CBC, ANEU, ADIFF, GFR #### [place] [address] Platelet mean volume (Bld) [Entitic vol] 7.3 fL Normal 6.4-10.5 [facility] Comment on above: Performed By: #### C MP, CBC, ANEU, ADIFF, GFR #### [place] [address] RBC 5.34 10 6/mcL Normal 4.50-6.00 [facility] Comment on above: Performed By: #### C MP, CBC, ANEU, ADIFF, GFR #### [place] [address] WBC 6.4 10 3/mcL Normal 4.5-10.8 [facility] Comment on above: Performed By: #### C MP, CBC, ANEU, ADIFF, GFR #### [address] [address] CMPon 08-24-2024 Albumin Level 4.3 G/dL Normal 3.5-5.0 [facility] Comment on above: Performed By: #### C MP, CBC, ANEU, ADIFF, GFR #### [address] [address] Albumin/Globulin [Mass ratio] 1.2 {ratio} Normal 1.1-2.5 [facility] Comment on above: Performed By: #### C MP, CBC, ANEU, ADIFF, GFR #### [address] [address] ALP [Catalytic activity/Vol] 79 U/L Normal 40-135 [facility] Comment on above: Performed By: #### C MP, CBC, ANEU, ADIFF, GFR #### [address] [address] ALT [Catalytic activity/Vol] 42 U/L Normal 16-63 [facility] Comment on above: Performed By: #### C MP, CBC, ANEU, ADIFF, GFR #### [address] [address] AST [Catalytic activity/Vol] 20 U/L Normal 10-40 [facility] Comment on above: Performed By: #### C MP, CBC, ANEU, ADIFF, GFR #### [address] [address] Bili Total 0.5 mg/dL Normal 0.2-1.0 [facility] Comment on above: Result Comment: Use of this assay is not recommended for patients undergoing treatment with eltrombopag due to the potential for falsely elevated results. Performed By: #### C MP, CBC, ANEU, ADIFF, GFR #### [place] [id number] BUN/Creatinine Ratio 11 ratio Normal 7-27 [facility] Comment on above: Performed By: #### C MP, CBC, ANEU, ADIFF, GFR #### [address] [address] Calcium [Mass/Vol] 9.6 mg/dL Normal 8.4-10.2 [facility] Comment on above: Performed By: #### C MP, CBC, ANEU, ADIFF, GFR #### [place] [address] Chloride [Moles/Vol] 104 mmol/L Normal 98-107 [facility] Comment on above: Performed By: #### C MP, CBC, ANEU, ADIFF, GFR #### [place] [address] CO2 [Moles/Vol] 29 mmol/L Normal 22-29 [facility] Comment on above: Performed By: #### C MP, CBC, ANEU, ADIFF, GFR #### [place] [address] Creatinine [Mass/Vol] 0.99 mg/dL Normal 0.70-1.30 [facility] Comment on above: Result Comment: Test ing performed on Siemens Dimension EXL analyzer using a modified kinetic Eagle technique. Performed By: #### C MP, CBC, ANEU, ADIFF, GFR #### [place] [address] Electrolyte Balance 6.0 mEq/L Normal 4.0-15.0 [facility] Comment on above: Performed By: #### C MP, CBC, ANEU, ADIFF, GFR #### [place] [address] Globulin 3.5 G/dL Normal 1.5-3.8 [facility] Comment on above: Performed By: #### C MP, CBC, ANEU, ADIFF, GFR #### [place] [address] Glucose [Mass/Vol] 106 mg/dL High 70-105 [facility] Comment on above: Performed By: #### C MP, CBC, ANEU, ADIFF, GFR #### [address] [address] Potassium [Moles/Vol] 4.2 mmol/L Normal 3.5-5.1 [facility] Comment on above: Performed By: #### C MP, CBC, ANEU, ADIFF, GFR #### [address] [address] Sodium [Moles/Vol] 139 mmol/L Normal 136-145 [facility] Comment on above: Performed By: #### C MP, CBC, ANEU, ADIFF, GFR #### [address] [address] Total Protein 7.8 G/dL Normal 6.4-8.2 [facility] Comment on above: Performed By: #### C MP, CBC, ANEU, ADIFF, GFR #### [address] [address] Urea nitrogen [Mass/Vol] 11 mg/dL Normal 7-18 [facility] Comment on above: Performed By: #### C MP, CBC, ANEU, ADIFF, GFR #### [address] [address] FT4on 08-24-2024 Free T4 [Mass/Vol] 0.84 ng/dL Normal 0.76-1.46 [facility] Comment on above: Performed By: #### C MP, CBC, ANEU, ADIFF, GFR #### [address] [address] GGTon 08-24-2024 Gamma GT 35 U/L Normal 15-85 [facility] Comment on above: Performed By: #### C MP, CBC, ANEU, ADIFF, GFR #### [address] [address] LIPIDon 08-24-2024 Cholesterol [Mass/Vol] 133 mg/dL Normal 0-200 [facility] Comment on above: Result Comment: Chol esterol Reference Interval: Less than 200 Desirable 200-239 Borderline high risk 240 and above High risk Performed By: #### C MP, CBC, ANEU, ADIFF, GFR #### [address] [address] Cholesterol in HDL [Mass/Vol] 59 mg/dL Normal 40-60 [facility] Comment on above: Performed By: #### C MP, CBC, ANEU, ADIFF, GFR #### [place] [address] Cholesterol in LDL [Mass/Vol] 60 mg/dL Normal 0-130 [facility] Comment on above: Performed By: #### C MP, CBC, ANEU, ADIFF, GFR #### [place] [address] Triglyceride [Mass/Vol] 72 mg/dL Normal 0-150 [facility] Comment on above: Result Comment: Trig lyceride Reference Interval: Less than 150 Normal 150-199 Borderline high risk 200-499 High risk 500 or higher Very high risk Performed By: #### C MP, CBC, ANEU, ADIFF, GFR #### [address] [address] PROon 08-24-2024 PT Coag (PPP) [Time] 12.3 s Normal 9.0-14.4 [facility] Comment on above: Performed By: #### C MP, CBC, ANEU, ADIFF, GFR #### [place] [address] PT International Ratio 1.1 Normal [facility] Comment on above: Result Comment: The [employer] (CHEST, 1992, 102:312S-25S) recommended therapeutic range for oral anticoagulant therapy is: LOW RISK: Prophylaxis of venous thrombosis INR: 2.0-3.0 Treatment of pulmonary embolism 2.0-3.0 Prevention of systemic embolism 2.0-3.0 HIGH RISK: Mechanical prosthetic valves 2.5-3.5 Performed By: #### C MP, CBC, ANEU, ADIFF, GFR #### [address] [address] TSHon 08-24-2024 TSH Qn 0.59 m[IU]/L Normal 0.36-3.74 [facility] Comment on above: Performed By: #### C MP, CBC, ANEU, ADIFF, GFR #### [place] [address] QUANTTBon 07-07-2024 QFT Criteria Comment Normal [facility] Comment on above: Result Comment: QuantiFERON-TB Gold Plus is a qualitative indirect test for M tuberculosis infection (including disease) and is intended for use in conjunction with risk assessment, radiography, and other medical and diagnostic evaluations. The QuantiFERON-TB Gold Plus result is determined by subtracting the Nil value from either TB antigen (Ag) value. The Mitogen tube serves as a control for the test. Performed By: #### 1 [id number] #### [place] [address] QFT Mitogen Value >10.00 Normal [facility] Comment on above: Performed By: #### 1 [id number] #### [place] [address] QFT Nil Value 0.01 IU/mL Normal [facility] Comment on above: Performed By: #### 1 [id number] #### [place] [address] QFT TB1 Ag Value 0.04 IU/mL [facility] Comment on above: Performed By: #### 1 [id number] #### [place] [address] QFT TB2 Ag Value 0.04 IU/mL [facility] Comment on above: Performed By: #### 1 [id number] #### [place] [address] QFT-TB Gold Plus [employer] Negative Normal Negative [facility] Comment on above: Result Comment: No r esponse to M tuberculosis antigens detected. Infection with M tuberculosis is unlikely, but high risk individuals should be considered for additional testing (ATS/IDSA/CDC Clinical Practice Guidelines, 2017). The reference range is an Antigen minus Nil result of <0.35 IU/mL. The specimen received for QuantiFERON testing was incubated by the ordering institution. Specific procedures outlined in our Directory of Services and in the package insert for the QuantiFERON Gold (In Tube) test must be followed to enable for proper stimulation of cells for the production of interferon gamma. Chemiluminescence immunoassay methodology Performed At: [address] [id number] Tarsha Bill PhD Ph:[phone] Performed By: #### 1 [id number] #### [address] [address] .Auto Diffon 06-20-2024 Basophil, Absolute 0.0 10 3/mcL Normal 0.0-0.2 [facility] Comment on above: Performed By: #### C MP, CBC, ANEU, ADIFF, GFR #### [address] [address] Basophils/100 WBC (Bld) 0.5 % Normal 0.0-2.5 [facility] Comment on above: Performed By: #### C MP, CBC, ANEU, ADIFF, GFR #### [address] [address] Eosinophil, Absolute 0.2 10 3/mcL Normal 0.0-0.7 [facility] Comment on above: Performed By: #### C MP, CBC, ANEU, ADIFF, GFR #### [address] [address] Eosinophils/100 WBC (Bld) 3.7 % Normal 0.0-7.0 [facility] Comment on above: Performed By: #### C MP, CBC, ANEU, ADIFF, GFR #### [address] [address] Lymphocyte, Absolute 2.1 10 3/mcL Normal 0.9-4.3 [facility] Comment on above: Performed By: #### C MP, CBC, ANEU, ADIFF, GFR #### [address] [address] Lymphocytes/100 WBC (Bld) 35.7 % Normal 20.0-40.0 [facility] Comment on above: Performed By: #### C MP, CBC, ANEU, ADIFF, GFR #### [address] [address] Monocyte, Absolute 0.8 10 3/mcL Normal 0.1-1.4 [facility] Comment on above: Performed By: #### C MP, CBC, ANEU, ADIFF, GFR #### [address] [address] Monocytes/100 WBC (Bld) 12.8 % Normal 2.0-13.0 [facility] Comment on above: Performed By: #### C MP, CBC, ANEU, ADIFF, GFR #### [address] [address] Neutrophils/100 WBC (Bld) 47.3 % Low 50.0-75.0 [facility] Comment on above: Performed By: #### C MP, CBC, ANEU, ADIFF, GFR #### [address] [address] .GFRon 06-20-2024 GFR/1.73 sq M.predicted among non-blacks MDRD (S/P/Bld) [Vol rate/Area] mL/min/{1.73_m2} Normal [facility] Comment on above: Result Comment: Stages of Chronic Kidney Disease (CKD) Stage Description eGFR(ml/min/1.73 sq.m.) CKD 1 Normal kidney function or >=90 normal kindney function with possible kidney damage (ex. Proteinuria) CKD 2 Kidney damage with mild loss 60-89 of kidney function CKD 3a Mild to moderate loss of kidney 45-59 function CKD 3b Moderate to severe loss of 30-44 of kindey function CKD 4 Severe loss of kidney function 15-29 CKD 5 Kidney failure <15 Note: (go live 2024) the eGFR calculation was updated to the 2020 CKD-EPI creatinine equation without a race factor to calculate the eGFR results. Performed By: #### C MP, CBC, ANEU, ADIFF, GFR #### [address] [address] .NEUABSon 06-20-2024 Neutrophil, Absolute 2.8 10 3/mcL Normal 2.3-8.1 [facility] Comment on above: Performed By: #### C MP, CBC, ANEU, ADIFF, GFR #### [address] [address] CBCon 06-20-2024 Erythrocyte distribution width (RBC) [Ratio] 13.1 % Normal 11.5-15.5 [facility] Comment on above: Performed By: #### C MP, CBC, ANEU, ADIFF, GFR #### [address] [address] Hematocrit (Bld) [Volume fraction] 44.3 % Normal 40.0-52.0 [facility] Comment on above: Performed By: #### C MP, CBC, ANEU, ADIFF, GFR #### [address] [address] Hgb 15.3 G/dL Normal 13.0-17.5 [facility] Comment on above: Performed By: #### C MP, CBC, ANEU, ADIFF, GFR #### [address] [address] MCH (RBC) [Entitic mass] 31.1 pg Normal 27.0-33.0 [facility] Comment on above: Performed By: #### C MP, CBC, ANEU, ADIFF, GFR #### [address] [address] MCHC 34.5 G/dL Normal 32.0-36.0 [facility] Comment on above: Performed By: #### C MP, CBC, ANEU, ADIFF, GFR #### [address] [address] MCV (RBC) [Entitic vol] 90.1 fL Normal 81.0-100.0 [facility] Comment on above: Performed By: #### C MP, CBC, ANEU, ADIFF, GFR #### [address] [address] Platelet 304 10 3/mcL Normal 150-450 [facility] Comment on above: Performed By: #### C MP, CBC, ANEU, ADIFF, GFR #### [address] [address] Platelet mean volume (Bld) [Entitic vol] 7.1 fL Normal 6.4-10.5 [facility] Comment on above: Performed By: #### C MP, CBC, ANEU, ADIFF, GFR #### [address] [address] RBC 4.92 10 6/mcL Normal 4.50-6.00 [facility] Comment on above: Performed By: #### C MP, CBC, ANEU, ADIFF, GFR #### [address] [address] WBC 6.0 10 3/mcL Normal 4.5-10.8 [facility] Comment on above: Performed By: #### C MP, CBC, ANEU, ADIFF, GFR #### [address] [address] CMPon 06-20-2024 Albumin Level 4.1 G/dL Normal 3.5-5.0 [facility] Comment on above: Performed By: #### C MP, CBC, ANEU, ADIFF, GFR #### [address] [address] Albumin/Globulin [Mass ratio] 1.2 {ratio} Normal 1.1-2.5 [facility] Comment on above: Performed By: #### C MP, CBC, ANEU, ADIFF, GFR #### [address] [address] ALP [Catalytic activity/Vol] 79 U/L Normal 40-135 [facility] Comment on above: Performed By: #### C MP, CBC, ANEU, ADIFF, GFR #### [address] [address] ALT [Catalytic activity/Vol] 54 U/L Normal 16-63 [facility] Comment on above: Performed By: #### C MP, CBC, ANEU, ADIFF, GFR #### [address] [address] AST [Catalytic activity/Vol] 32 U/L Normal 10-40 [facility] Comment on above: Performed By: #### C MP, CBC, ANEU, ADIFF, GFR #### [address] [address] Bili Total 0.6 mg/dL Normal 0.2-1.0 [facility] Comment on above: Result Comment: Use of this assay is not recommended for patients undergoing treatment with eltrombopag due to the potential for falsely elevated results. Performed By: #### C MP, CBC, ANEU, ADIFF, GFR #### [address] [address] BUN/Creatinine Ratio 20 ratio Normal 7-27 [facility] Comment on above: Performed By: #### C MP, CBC, ANEU, ADIFF, GFR #### [address] [address] Calcium [Mass/Vol] 9.3 mg/dL Normal 8.4-10.2 [facility] Comment on above: Performed By: #### C MP, CBC, ANEU, ADIFF, GFR #### [address] [address] Chloride [Moles/Vol] 104 mmol/L Normal 98-107 [facility] Comment on above: Performed By: #### C MP, CBC, ANEU, ADIFF, GFR #### [address] [address] CO2 [Moles/Vol] 31 mmol/L High 22-29 [facility] Comment on above: Performed By: #### C MP, CBC, ANEU, ADIFF, GFR #### [address] [address] Creatinine [Mass/Vol] 0.79 mg/dL Normal 0.70-1.30 [facility] Comment on above: Result Comment: Test ing performed on Siemens Dimension EXL analyzer using a modified kinetic Eagle technique. Performed By: #### C MP, CBC, ANEU, ADIFF, GFR #### [address] [address] Electrolyte Balance 6.0 mEq/L Normal 4.0-15.0 [facility] Comment on above: Performed By: #### C MP, CBC, ANEU, ADIFF, GFR #### [address] [address] Globulin 3.4 G/dL Normal 1.5-3.8 [facility] Comment on above: Performed By: #### C MP, CBC, ANEU, ADIFF, GFR #### [address] [address] Glucose [Mass/Vol] 97 mg/dL Normal 70-105 [facility] Comment on above: Performed By: #### C MP, CBC, ANEU, ADIFF, GFR #### [address] [address] Potassium [Moles/Vol] 4.3 mmol/L Normal 3.5-5.1 [facility] Comment on above: Performed By: #### C MP, CBC, ANEU, ADIFF, GFR #### [address] [address] Sodium [Moles/Vol] 141 mmol/L Normal 136-145 [facility] Comment on above: Performed By: #### C MP, CBC, ANEU, ADIFF, GFR #### [address] [address] Total Protein 7.5 G/dL Normal 6.4-8.2 [facility] Comment on above: Performed By: #### C MP, CBC, ANEU, ADIFF, GFR #### [address] [address] Urea nitrogen [Mass/Vol] 16 mg/dL Normal 7-18 [facility] Comment on above: Performed By: #### C MP, CBC, ANEU, ADIFF, GFR #### [address] [address] LABORATORYOrdered By: SYSTEM SYSTEM on 06-20-2024 Albumin BCP dye [Mass/Vol] 4.1 G/dL Normal 3.5 - 5.0 G/dL AO ADM SS Albumin/Globulin [Mass ratio] 1.2 {ratio} Normal 1.1 - 2.5 ratio AO ADM SS ALP [Catalytic activity/Vol] 79 U/L Normal 40 - 135 U/L AO ADM SS ALT With P-5'-P [Catalytic activity/Vol] 54 U/L Normal 16 - 63 U/L AO ADM SS AST With P-5'-P [Catalytic activity/Vol] 32 U/L Normal 10 - 40 U/L AO ADM SS Basophils (Bld) [#/Vol] 0.0 103/mcL Normal 0.0 - 0.2 10^3/mcL AO Workflow SS Basophils/100 WBC (Bld) 0.5 % Normal 0.0 - 2.5 % AO Workflow SS Bilirubin [Mass/Vol] 0.6 mg/dL Normal 0.2 - 1 .0 mg/dL AO ADM SS Comment on above: Interpretive Data: U se of this assay is not recommended for patients undergoing treatment with eltrombopag due to the potential for falsely elevated results. Calcium [Mass/Vol] 9.3 mg/dL Normal 8.4 - 10. 2 mg/dL AO ADM SS Chloride [Moles/Vol] 104 mmol/L Normal 98 - 10 7 mmol/L AO ADM SS CO2 [Moles/Vol] 31 mmol/L High 22 - 29 mmol/L AO ADM SS Creatinine [Mass/Vol] 0.79 mg/dL Normal 0.70 - 1.30 mg/dL AO ADM SS Comment on above: Interpretive Data: T esting performed on Siemens Dimension EXL analyzer using a modified kinetic Eagle technique. Electrolyte Balance 6.0 mEq/L Normal 4.0 - 15 .0 mEq/L AO ADM SS Eosinophil, Absolute 0.2 103/mcL Normal 0.0 - 0 .7 10^3/mcL AO Workflow SS Eosinophils/100 WBC (Bld) 3.7 % Normal 0.0 - 7.0 % AO Workflow SS Erythrocyte distribution width (RBC) [Ratio] 13.1 % Normal 11.5 - 15.5 % AO Workflow SS Estimated Glomerular Filtration Rate ml/min/1.73sqm Invalid Interpretation Code AO Chemistry S Comment on above: Interpretive Data: Stages of Chronic Kidney Disease (CKD) Stage Description eGFR(ml/min/1.73 sq.m.) CKD 1 Normal kidney function or >=90 normal kindney function with possible kidney damage (ex. Proteinuria) CKD 2 Kidney damage with mild loss 60-89 of kidney function CKD 3a Mild to moderate loss of kidney 45-59 function CKD 3b Moderate to severe loss of 30-44 of kindey function CKD 4 Severe loss of kidney function 15-29 CKD 5 Kidney failure <15 Note: (go live 2024) the eGFR calculation was updated to the 2020 CKD-EPI creatinine equation without a race factor to calculate the eGFR results. Globulin 3.4 G/dL Normal 1.5 - 3.8 G/dL AO ADM SS Glucose [Mass/Vol] 97 mg/dL Normal 70 - 105 mg/dL AO ADM SS Hematocrit (Bld) [Volume fraction] 44.3 % Normal 40.0 - 52.0 % AO Workflow SS Hemoglobin (Bld) [Mass/Vol] 15.3 G/dL Normal 13.0 - 17.5 G/dL AO Workflow SS Lymphocytes (Bld) [#/Vol] 2.1 103/mcL Normal 0.9 - 4.3 10^3/mcL AO Workflow SS Lymphocytes/100 WBC (Bld) 35.7 % Normal 20.0 - 40.0 % AO Workflow SS MCH (RBC) [Entitic mass] 31.1 pg Normal 27. 0 - 33.0 pg AO Workflow SS MCHC 34.5 G/dL Normal 32.0 - 36.0 G/dL AO Workflow SS MCV (RBC) [Entitic vol] 90.1 fL Normal 81.0 - 100.0 fL AO Workflow SS Monocytes (Bld) [#/Vol] 0.8 103/mcL Normal 0.1 - 1.4 10^3/mcL AO Workflow SS Monocytes/100 WBC (Bld) 12.8 % Normal 2.0 - 13.0 % AO Workflow SS Neutrophils (Bld) [#/Vol] 2.8 103/mcL Normal 2.3 - 8.1 10^3/mcL AO Workflow SS Neutrophils/100 WBC (Bld) 47.3 % Low 50.0 - 75.0 % AO Workflow SS Platelet mean volume (Bld) [Entitic vol] 7.1 fL Normal 6.4 - 10.5 fL AO Workflow SS Platelets (Bld) [#/Vol] 304 103/mcL Normal 150 - 450 10^3/mcL AO Workflow SS Potassium [Moles/Vol] 4.3 mmol/L Normal 3.5 - 5.1 mmol/L AO ADM SS Protein [Mass/Vol] 7.5 G/dL Normal 6.4 - 8.2 G/dL AO ADM SS RBC (Bld) [#/Vol] 4.92 106/mcL Normal 4.50 - 6.0 0 10^6/mcL AO Workflow SS Sodium [Moles/Vol] 141 mmol/L Normal 136 - 145 mmol/L AO ADM SS Urea nitrogen [Mass/Vol] 16 mg/dL Normal 7 - 18 mg/dL AO ADM SS Urea nitrogen/Creatinine [Mass ratio] 20 ratio Normal 7 - 27 ratio AO ADM SS WBC (Bld) [#/Vol] 6.0 103/mcL Normal 4.5 - 10.8 10^3/mcL AO Workflow SS US ABDOMEN LIMITEDon -05-2 025 US ABDOMEN LIMITED ORIGINAL EXAMINATION: RIGHT UPPER QUADRANT ULTRASOUND 06/20/2024 1:44 pm COMPARISON: 09/12/2023 HISTORY: ORDERING SYSTEM PROVIDED HISTORY: Reason for Exam: Unspecified cirrhosis of liver, Alcoholic liver disease, unspecified FINDINGS: LIVER: The liver demonstrates mild to moderate increased echogenicity without evidence of intrahepatic biliary ductal dilatation. Liver measures 16.5 cm in diameter. There is a smooth hepatic contour without macro lobular appearance. BILIARY SYSTEM: Gallbladder is distended contains minimal sludge. There is no shadowing stone, pericholecystic edema or ultrasound Strauss sign. Negative sonographic Strauss's sign. Common bile duct is within normal limits measuring 4.8 mm RIGHT KIDNEY: The right kidney is grossly unremarkable without evidence of hydronephrosis. Right kidney measures 10.8 x 6.4 x 7.0 cm. Appropriate cortical thickness and echotexture observed.. PANCREAS: Visualized portions of the pancreas are unremarkable. OTHER: No evidence of right upper quadrant ascites. IMPRESSION: 1. Mild to moderate fatty infiltration of the liver. 2. Minimal gallbladder sludge. Interpreted by: Adolfo Parks DO Preliminary Report By: Adolfo Parks DO Electronically signed By Adolfo Parks DO Dictated Date: 06/20/2024 4:35:59 PM Prelim Date: 06/20/2024 4:39:20 PM Sign Date: 06/20/2024 4:39:20 PM Ordering Provider: FLY DENG [facility] .Auto Diffon 09-23-2023 Basophil, Absolute 0.0 10 3/mcL Normal 0.0-0.2 [facility] ([place]) Comment on above: Performed By: #### A KAHLIL, ADIFF, CBC, CMP, GFR #### [address] [address] Basophils/100 WBC (Bld) 0.6 % Normal 0.0-2.5 A [facility] ([place]) Comment on above: Performed By: #### A KAHLIL, ADIFF, CBC, CMP, GFR #### [address] [address] Eosinophil, Absolute 0.3 10 3/mcL Normal 0.0-0.4 [facility] ([place]) Comment on above: Performed By: #### A KAHLIL, ADIFF, CBC, CMP, GFR #### [address] [address] Eosinophils/100 WBC (Bld) 4.2 % Normal 0.0-7.0 [facility] ([place]) Comment on above: Performed By: #### A KAHLIL, ADIFF, CBC, CMP, GFR #### [address] [address] Lymphocyte, Absolute 1.7 10 3/mcL Normal 0.8-3.9 [facility] ([place]) Comment on above: Performed By: #### A KAHLIL, ADIFF, CBC, CMP, GFR #### [address] [address] Lymphocytes/100 WBC (Bld) 25.0 % Normal 10.0-50.0 [facility] ([place]) Comment on above: Performed By: #### A KAHLIL, ADIFF, CBC, CMP, GFR #### [address] [address] Monocyte, Absolute 0.8 10 3/mcL Normal 0.2-1.0 [facility] ([place]) Comment on above: Performed By: #### A KAHLIL, ADIFF, CBC, CMP, GFR #### [address] [address] Monocytes/100 WBC (Bld) 11.3 % Normal 1.7-13.0 A [facility] ([place]) Comment on above: Performed By: #### A KAHLIL, ADIFF, CBC, CMP, GFR #### [address] [address] Neutrophils/100 WBC (Bld) 58.9 % Normal 37.0-80.0 [facility] ([place]) Comment on above: Performed By: #### A KAHLIL, ADIFF, CBC, CMP, GFR #### [address] [address] .GFRon 09-23-2023 GFR 131 ml/min/1.73sqm Normal [facility] ([place]) Comment on above: Result Comment: GFR Population mean for , Non- Americans Ages 20-29 = 116 mL/min/1.73 sq.m. Ages 30-39 = 107 mL/min/1.73 sq.m. Ages 40-49 = 99 mL/min/1.73 sq.m. Ages 50-59 = 93 mL/min/1.73 sq.m. Ages 60-69 = 85 mL/min/1.73 sq.m. Ages 70+ = 75 mL/min/1.73 sq.m. Chronic Kidney Disease: Less than 60 mL/min/1.73 square meters End Stage Renal Disease: Less than 15 mL/min/1.73 square meters Performed By: #### A KAHLIL, ADIFF, CBC, CMP, GFR #### [address] [address] GFR Non- 108 ml/min/1.73sqm Normal [facility] ([place]) Comment on above: Result Comment: GFR Population mean for , Non- Americans Ages 20-29 = 116 mL/min/1.73 sq.m. Ages 30-39 = 107 mL/min/1.73 sq.m. Ages 40-49 = 99 mL/min/1.73 sq.m. Ages 50-59 = 93 mL/min/1.73 sq.m. Ages 60-69 = 85 mL/min/1.73 sq.m. Ages 70+ = 75 mL/min/1.73 sq.m. Chronic Kidney Disease: Less than 60 mL/min/1.73 square meters End Stage Renal Disease: Less than 15 mL/min/1.73 square meters Performed By: #### A KAHLIL, ADIFF, CBC, CMP, GFR #### [place] [id number] .NEUABSon 09-23-2023 Neutrophil, Absolute 4.0 10 3/mcL Normal 2.9-6.2 [facility] ([place]) Comment on above: Performed By: #### A KAHLIL, ADIFF, CBC, CMP, GFR #### [place] [address] CBCon 09-23-2023 Erythrocyte distribution width (RBC) [Ratio] 13.6 % Normal 11.5-14.5 [facility] ([place]) Comment on above: Performed By: #### A KAHLIL, ADIFF, CBC, CMP, GFR #### [place] [address] Hematocrit (Bld) [Volume fraction] 42.4 % Normal 42.0-52.0 [facility] ([place]) Comment on above: Performed By: #### A KAHLIL, ADIFF, CBC, CMP, GFR #### [place] [address] Hgb 14.8 G/dL Normal 14.0-18.0 [facility] ([place] Comment on above: Performed By: #### A KAHLIL, ADIFF, CBC, CMP, GFR #### [place] [address] MCH (RBC) [Entitic mass] 30.3 pg Normal 27.0-31.2 [facility] ([place] Comment on above: Performed By: #### A KAHLIL, ADIFF, CBC, CMP, GFR #### [place] [address] MCHC 34.8 G/dL Normal 31.8-35.4 [facility] ([place] Comment on above: Performed By: #### A KAHLIL, ADIFF, CBC, CMP, GFR #### [address] [address] MCV (RBC) [Entitic vol] 87.0 fL Normal 80.0-94.0 A [facility] ([place]) Comment on above: Performed By: #### A KAHLIL, ADIFF, CBC, CMP, GFR #### [address] [address] Platelet 326 10 3/mcL Normal 130-400 [facility] ([place]) Comment on above: Performed By: #### A KAHLIL, ADIFF, CBC, CMP, GFR #### [address] [address] Platelet mean volume (Bld) [Entitic vol] 7.1 fL Low 7.4-10.4 [facility] ([place]) Comment on above: Performed By: #### A KAHLIL, ADIFF, CBC, CMP, GFR #### [address] [address] RBC 4.87 10 6/mcL Normal 4.04-6.13 [facility] ([place] Comment on above: Performed By: #### A KAHLIL, ADIFF, CBC, CMP, GFR #### [address] [address] WBC 6.8 10 3/mcL Normal 4.6-10.8 [facility] ([place] Comment on above: Performed By: #### A KAHLIL, ADIFF, CBC, CMP, GFR #### [address] [address] CMPon 09-23-2023 Albumin Level 4.1 G/dL Normal 3.5-5.0 [facility] ([place] Comment on above: Performed By: #### A KAHLIL, ADIFF, CBC, CMP, GFR #### [address] [address] Albumin/Globulin [Mass ratio] 1.0 {ratio} Low 1.1-2.5 [facility] ([place] Comment on above: Performed By: #### A KAHLIL, ADIFF, CBC, CMP, GFR #### [address] [address] ALP [Catalytic activity/Vol] 91 U/L Normal 40-135 [facility] ([place]) Comment on above: Performed By: #### A KAHLIL, ADIFF, CBC, CMP, GFR #### [address] [address] ALT [Catalytic activity/Vol] 52 U/L Normal 16-63 [facility] ([place]) Comment on above: Performed By: #### A KAHLIL, ADIFF, CBC, CMP, GFR #### [address] [address] AST [Catalytic activity/Vol] 22 U/L Normal 10-40 [facility] ([place]) Comment on above: Performed By: #### A KAHLIL, ADIFF, CBC, CMP, GFR #### [address] [address] Bili Total 0.6 mg/dL Normal 0.2-1.0 [facility] ([place]) Comment on above: Result Comment: Use of this assay is not recommended for patients undergoing treatment with eltrombopag due to the potential for falsely elevated results. Performed By: #### A KAHLIL, ADIFF, CBC, CMP, GFR #### [address] [address] BUN/Creatinine Ratio 14 ratio Normal 7-27 [facility] ([place]) Comment on above: Performed By: #### A KAHLIL, ADIFF, CBC, CMP, GFR #### [address] [address] Calcium [Mass/Vol] 9.6 mg/dL Normal 8.4-10.2 [facility] ([place]) Comment on above: Performed By: #### A KAHLIL, ADIFF, CBC, CMP, GFR #### [address] [address] Chloride [Moles/Vol] 101 mmol/L Normal 98-107 [facility] ([place]) Comment on above: Performed By: #### A KAHLIL, ADIFF, CBC, CMP, GFR #### [address] [address] CO2 [Moles/Vol] 31 mmol/L High 22-29 [facility] ([place]) Comment on above: Performed By: #### A KAHLIL, ADIFF, CBC, CMP, GFR #### [address] [address] Creatinine [Mass/Vol] 0.84 mg/dL Normal 0.70-1.30 [facility] ([place]) Comment on above: Performed By: #### A KAHLIL, ADIFF, CBC, CMP, GFR #### [address] [address] Electrolyte Balance 7.0 mEq/L Normal 4.0-15.0 [facility] [place] Comment on above: Performed By: #### A KAHLIL, ADIFF, CBC, CMP, GFR #### [place] [id number] Globulin 4.1 G/dL Normal [facility] ([place] Comment on above: Performed By: #### A KAHLIL, ADIFF, CBC, CMP, GFR #### [address] [address] Glucose [Mass/Vol] 95 mg/dL Normal 70-105 [facility] ([place]) Comment on above: Performed By: #### A KAHLIL, ADIFF, CBC, CMP, GFR #### [address] [address] Potassium [Moles/Vol] 4.7 mmol/L Normal 3.5-5.1 [facility] ([place]) Comment on above: Performed By: #### A KAHLIL, ADIFF, CBC, CMP, GFR #### [place] [id number] Sodium [Moles/Vol] 139 mmol/L Normal 136-145 [facility] ([place]) Comment on above: Performed By: #### A KAHLIL, ADIFF, CBC, CMP, GFR #### [place] [id number] Total Protein 8.2 G/dL Normal 6.4-8.2 [facility] ([place]) Comment on above: Performed By: #### A KAHLIL, ADIFF, CBC, CMP, GFR #### [place] [address] [place], [place] [address] Urea nitrogen [Mass/Vol] 12 mg/dL Normal 7-18 [facility] ([place]) Comment on above: Performed By: #### A KAHLIL, ADIFF, CBC, CMP, GFR #### [place] [address] [place], [place] [address] LABORATORYOrdered By: SYSTEM SYSTEM on 09-23-2023 Albumin BCP dye [Mass/Vol] 4.1 G/dL Normal 3.5 - 5.0 G/dL AO ADM SS Albumin/Globulin [Mass ratio] 1.0 {ratio} Low 1.1 - 2.5 ratio AO ADM SS ALP [Catalytic activity/Vol] 91 U/L Normal 40 - 135 U/L AO ADM SS ALT With P-5'-P [Catalytic activity/Vol] 52 U/L Normal 16 - 63 U/L AO ADM SS AST With P-5'-P [Catalytic activity/Vol] 22 U/L Normal 10 - 40 U/L AO ADM SS Basophil, Absolute 0.0 103/mcL Normal 0.0 - 0.2 10^3/mcL AO Workflow SS Basophils/100 WBC (Bld) 0.6 % Normal 0.0 - 2.5 % AO Workflow SS Bilirubin [Mass/Vol] 0.6 mg/dL Normal 0.2 - 1 .0 mg/dL AO ADM SS Comment on above: Interpretive Data: U se of this assay is not recommended for patients undergoing treatment with eltrombopag due to the potential for falsely elevated results. Calcium [Mass/Vol] 9.6 mg/dL Normal 8.4 - 10. 2 mg/dL AO ADM SS Chloride [Moles/Vol] 101 mmol/L Normal 98 - 10 7 mmol/L AO ADM SS CO2 [Moles/Vol] 31 mmol/L High 22 - 29 mmol/L AO ADM SS Creatinine [Mass/Vol] 0.84 mg/dL Normal 0.70 - 1.30 mg/dL AO ADM SS Electrolyte Balance 7.0 mEq/L Normal 4.0 - 15 .0 mEq/L AO ADM SS Eosinophil, Absolute 0.3 103/mcL Normal 0.0 - 0 .4 10^3/mcL AO Workflow SS Eosinophils/100 WBC (Bld) 4.2 % Normal 0.0 - 7.0 % AO Workflow SS Erythrocyte distribution width (RBC) [Ratio] 13.6 % Normal 11.5 - 14.5 % AO Workflow SS GFR/1.73 sq M.predicted among blacks MDRD (S/P/Bld) [Vol rate/Area] 131 ml/min/1.73sqm Invalid Interpretation Code AO Chemistry S Comment on above: Interpretive Data: GFR Population mean for , Non- Americans Ages 20-29 = 116 mL/min/1.73 sq.m. Ages 30-39 = 107 mL/min/1.73 sq.m. Ages 40-49 = 99 mL/min/1.73 sq.m. Ages 50-59 = 93 mL/min/1.73 sq.m. Ages 60-69 = 85 mL/min/1.73 sq.m. Ages 70+ = 75 mL/min/1.73 sq.m. Chronic Kidney Disease: Less than 60 mL/min/1.73 square meters End Stage Renal Disease: Less than 15 mL/min/1.73 square meters GFR/1.73 sq M.predicted among non-blacks MDRD (S/P/Bld) [Vol rate/Area] 108 ml/min/1.73sqm Invalid Interpretation Code AO Chemistry S Comment on above: Interpretive Data: GFR Population mean for , Non- Americans Ages 20-29 = 116 mL/min/1.73 sq.m. Ages 30-39 = 107 mL/min/1.73 sq.m. Ages 40-49 = 99 mL/min/1.73 sq.m. Ages 50-59 = 93 mL/min/1.73 sq.m. Ages 60-69 = 85 mL/min/1.73 sq.m. Ages 70+ = 75 mL/min/1.73 sq.m. Chronic Kidney Disease: Less than 60 mL/min/1.73 square meters End Stage Renal Disease: Less than 15 mL/min/1.73 square meters Globulin 4.1 G/dL Invalid Interpretation Code AO ADM SS Glucose [Mass/Vol] 95 mg/dL Normal 70 - 105 mg/dL AO ADM SS Hematocrit (Bld) [Volume fraction] 42.4 % Normal 42.0 - 52.0 % AO Workflow SS Hemoglobin (Bld) [Mass/Vol] 14.8 G/dL Normal 14.0 - 18.0 G/dL AO Workflow SS Lymphocyte, Absolute 1.7 103/mcL Normal 0.8 - 3 .9 10^3/mcL AO Workflow SS Lymphocytes/100 WBC (Bld) 25.0 % Normal 10.0 - 50.0 % AO Workflow SS MCH (RBC) [Entitic mass] 30.3 pg Normal 27. 0 - 31.2 pg AO Workflow SS MCHC 34.8 G/dL Normal 31.8 - 35.4 G/dL AO Workflow SS MCV (RBC) [Entitic vol] 87.0 fL Normal 80.0 - 94.0 fL AO Workflow SS Monocyte, Absolute 0.8 103/mcL Normal 0.2 - 1.0 10^3/mcL AO Workflow SS Monocytes/100 WBC (Bld) 11.3 % Normal 1.7 - 13.0 % AO Workflow SS Neutrophil, Absolute 4.0 103/mcL Normal 2.9 - 6 .2 10^3/mcL AO Workflow SS Neutrophils/100 WBC (Bld) 58.9 % Normal 37.0 - 80.0 % AO Workflow SS Platelet mean volume (Bld) [Entitic vol] 7.1 fL Low 7.4 - 10.4 fL AO Workflow SS Platelets (Bld) [#/Vol] 326 103/mcL Normal 130 - 400 10^3/mcL AO Workflow SS Potassium [Moles/Vol] 4.7 mmol/L Normal 3.5 - 5.1 mmol/L AO ADM SS Protein [Mass/Vol] 8.2 G/dL Normal 6.4 - 8.2 G/dL AO ADM SS RBC (Bld) [#/Vol] 4.87 106/mcL Normal 4.04 - 6.1 3 10^6/mcL AO Workflow SS Sodium [Moles/Vol] 139 mmol/L Normal 136 - 145 mmol/L AO ADM SS Urea nitrogen [Mass/Vol] 12 mg/dL Normal 7 - 18 mg/dL AO ADM SS Urea nitrogen/Creatinine [Mass ratio] 14 ratio Normal 7 - 27 ratio AO ADM SS WBC (Bld) [#/Vol] 6.8 103/mcL Normal 4.6 - 10.8 10^3/mcL AO Workflow SS US ABDOMEN COMPLETEon 2023 US ABDOMEN COMPLETE ORIGINAL EXAMINATION: COMPLETE ABDOMINAL ULTRASOUND09/12/2023 9:18 am ULTRASOUND ABDOMEN COMPLETE, COMPARISON: Ultrasound 11/23/[address] 09/25/2018 HISTORY: ORDERING SYSTEM PROVIDED HISTORY: Reason for Exam: CIRRHOSIS, FINDINGS: The liver is mildly coarsened in echotexture and mildly increased in echogenicity. No focal lesion is seen. There is no significant nodularity of the liver margins. Antegrade flow is seen in the main portal vein.. There is no intrahepatic bile duct dilatation. The common duct is 4.4 mm at the dallin hepatis. The gallbladder is sonographically normal without calculus, wall thickening or tenderness. The pancreas is mostly obscured by bowel gas artifacts and poorly visualized.. The spleen is mildly enlarged 14.7 cm vertical dimension similar to earlier studies. No focal splenic lesion.. No ascites. Limited survey images of the kidneys show normal cortical thickness and echogenicity. No pelvocaliectasis. . The aorta and IVC are suboptimally visualized due to artifacts. Visualized aorta shows no aneurysm.. IMPRESSION: Steatosis or other diffuse hepatocellular disease. No portal vein thrombosis. Mild splenomegaly also seen on earlier imaging. Interpreted by: Haroon Kaiser MD Preliminary Report By: Haroon Kaiser MD Electronically signed By Haroon Kaiser MD Dictated Date: 09/12/2023 3:21:14 PM Prelim Date: 09/12/2023 3:24:45 PM Sign Date: 09/12/2023 3:24:45 PM Ordering Provider: FLY Mcintyre [facility] ([place]) LABORATORYOrdered By: SYSTEM SYSTEM on 08-05-2023 Testosterone [Mass/Vol] 492.21 ng/dL Normal 123. 06 - 813.86 ng/dL [facility] Comment on above: Interpretive Data: N ormal Reference Ranges for Females: Female Premenopause Mpw74-724.01-47.94 ng/dL Female Postmenopause [id number]<7.00-45.62 ng/dL TESTOon 08-05-2023 Testosterone Lvl 492.21 ng/dL Normal 123.06-813. 86 [facility] ([place]) Comment on above: Result Comment: Norm al Reference Ranges for Females: Female Premenopause Age 21-60 9.01-47.94 ng/dL Female Postmenopause Age 45-89 <7.00-45.62 ng/dL Performed By: #### A KAHLIL, ADIFF, CBC, CMP, GFR #### [address] [address] LABORATORYOrdered By: Arlyn Parks on 07-27-2023 Albumin DL <= 20 mg/L (U) [Mass/Vol] 381 mcg/dL Invalid Interpretation Code AO ADM SS Albumin/Creatinine DL <= 20 mg/L (U) [Mass ratio] 2 mcg/mg Normal 0 - 30 mcg/mg AO ADM SS Creatinine (U) [Mass/Vol] 167.8 mg/dL Normal 39.0 - 259.0 mg/dL AO ADM SS MALBRon 07-27-2023 U Creatinine 167.8 mg/dL Normal 39.0-259.0 [facility] ([place]) Comment on above: Performed By: #### A KAHLIL, ADIFF, CBC, CMP, GFR #### [address] [address] U Microalb 381 mcg/dL Normal [facility] ([place]) Comment on above: Performed By: #### A KAHLIL, ADIFF, CBC, CMP, GFR #### [address] [address] U Ratio Alb/Cre 2 mcg/mg Normal 0-30 [facility] ([place]) Comment on above: Performed By: #### A KAHLIL, ADIFF, CBC, CMP, GFR #### [address] [address] .Auto Diffon 07-25-2023 Basophil, Absolute 0.0 10 3/mcL Normal 0.0-0.2 [facility] ([place]) Comment on above: Performed By: #### A KAHLIL, ADIFF, CBC, CMP, GFR #### [address] [address] Basophils/100 WBC (Bld) 0.7 % Normal 0.0-2.5 A [facility] ([place]) Comment on above: Performed By: #### A KAHLIL, ADIFF, CBC, CMP, GFR #### [address] [address] Eosinophil, Absolute 0.4 10 3/mcL Normal 0.0-0.4 [facility] ([place]) Comment on above: Performed By: #### A KAHLIL, ADIFF, CBC, CMP, GFR #### [address] [address] Eosinophils/100 WBC (Bld) 5.1 % Normal 0.0-7.0 [facility] ([place]) Comment on above: Performed By: #### A KAHLIL, ADIFF, CBC, CMP, GFR #### [address] [address] Lymphocyte, Absolute 1.5 10 3/mcL Normal 0.8-3.9 [facility] ([place]) Comment on above: Performed By: #### A KAHLIL, ADIFF, CBC, CMP, GFR #### [address] [address] Lymphocytes/100 WBC (Bld) 22.4 % Normal 10.0-50.0 [facility] ([place]) Comment on above: Performed By: #### A KAHLIL, ADIFF, CBC, CMP, GFR #### [address] [address] Monocyte, Absolute 0.8 10 3/mcL Normal 0.2-1.0 [facility] ([place]) Comment on above: Performed By: #### A KAHLIL, ADIFF, CBC, CMP, GFR #### [address] [address] Monocytes/100 WBC (Bld) 11.2 % Normal 1.7-13.0 [facility] ([place]) Comment on above: Performed By: #### A KAHLIL, ADIFF, CBC, CMP, GFR #### [address] [address] Neutrophils/100 WBC (Bld) 60.6 % Normal 37.0-80.0 [facility] ([place]) Comment on above: Performed By: #### A KAHLIL, ADIFF, CBC, CMP, GFR #### [address] [address] .GFRon 07-25-2023 GFR Non- 96 ml/min/1.73sqm Normal [facility] ([place]) Comment on above: Result Comment: GFR Population mean for , Non- Americans Ages 20-29 = 116 mL/min/1.73 sq.m. Ages 30-39 = 107 mL/min/1.73 sq.m. Ages 40-49 = 99 mL/min/1.73 sq.m. Ages 50-59 = 93 mL/min/1.73 sq.m. Ages 60-69 = 85 mL/min/1.73 sq.m. Ages 70+ = 75 mL/min/1.73 sq.m. Chronic Kidney Disease: Less than 60 mL/min/1.73 square meters End Stage Renal Disease: Less than 15 mL/min/1.73 square meters Performed By: #### A KAHLIL, ADIFF, CBC, CMP, GFR #### [address] [address] GFR 116 ml/min/1.73sqm Normal [facility] ([place]) Comment on above: Result Comment: GFR Population mean for , Non- Americans Ages 20-29 = 116 mL/min/1.73 sq.m. Ages 30-39 = 107 mL/min/1.73 sq.m. Ages 40-49 = 99 mL/min/1.73 sq.m. Ages 50-59 = 93 mL/min/1.73 sq.m. Ages 60-69 = 85 mL/min/1.73 sq.m. Ages 70+ = 75 mL/min/1.73 sq.m. Chronic Kidney Disease: Less than 60 mL/min/1.73 square meters End Stage Renal Disease: Less than 15 mL/min/1.73 square meters Performed By: #### A KAHLIL, ADIFF, CBC, CMP, GFR #### [address] [address] .Morphon 07-25-2023 Platelet Estimate Normal Normal [facility] ([place]) Comment on above: Performed By: #### A KAHLIL, ADIFF, CBC, CMP, GFR #### [address] [address] .NEUABSon 07-25-2023 Neutrophil, Absolute 4.2 10 3/mcL Normal 2.9-6.2 [facility] ([place]) Comment on above: Performed By: #### A KAHLIL, ADIFF, CBC, CMP, GFR #### [place] [id number] CBCon 07-25-2023 Erythrocyte distribution width (RBC) [Ratio] 12.9 % Normal 11.5-14.5 [facility] ([place]) Comment on above: Performed By: #### A KAHLIL, ADIFF, CBC, CMP, GFR #### [place] [address] Hematocrit (Bld) [Volume fraction] 39.3 % Low 42.0-52.0 [facility] ([place]) Comment on above: Performed By: #### A KAHLIL, ADIFF, CBC, CMP, GFR #### [place] [address] Hgb 13.9 G/dL Low 14.0-18.0 [facility] ([place]) Comment on above: Performed By: #### A KAHLIL, ADIFF, CBC, CMP, GFR #### [place] [address] MCH (RBC) [Entitic mass] 30.4 pg Normal 27.0-31.2 [facility] ([place]) Comment on above: Performed By: #### A KAHLIL, ADIFF, CBC, CMP, GFR #### [place] [address] MCHC 35.3 G/dL Normal 31.8-35.4 [facility] ([place]) Comment on above: Performed By: #### A KAHLIL, ADIFF, CBC, CMP, GFR #### [place] [address] MCV (RBC) [Entitic vol] 86.2 fL Normal 80.0-94.0 [facility] ([place]) Comment on above: Performed By: #### A KAHLIL, ADIFF, CBC, CMP, GFR #### [address] [address] Platelet 310 10 3/mcL Normal 130-400 [facility] ([place]) Comment on above: Performed By: #### A KAHLIL, ADIFF, CBC, CMP, GFR #### [address] [address] Platelet mean volume (Bld) [Entitic vol] 6.7 fL Low 7.4-10.4 [facility] ([place]) Comment on above: Performed By: #### A KAHLIL, ADIFF, CBC, CMP, GFR #### [address] [address] RBC 4.56 10 6/mcL Normal 4.04-6.13 [facility] ([place]) Comment on above: Performed By: #### A KAHLIL, ADIFF, CBC, CMP, GFR #### [address] [address] WBC 6.9 10 3/mcL Normal 4.6-10.8 [facility] ([place]) Comment on above: Performed By: #### A KAHLIL, ADIFF, CBC, CMP, GFR #### [address] [address] CMPon 07-25-2023 Albumin Level 3.6 G/dL Normal 3.5-5.0 [facility] ([place]) Comment on above: Performed By: #### A KAHLIL, ADIFF, CBC, CMP, GFR #### [address] [address] Albumin/Globulin [Mass ratio] 0.9 {ratio} Low 1.1-2.5 [facility] ([place]) Comment on above: Performed By: #### A KAHLIL, ADIFF, CBC, CMP, GFR #### [address] [address] ALP [Catalytic activity/Vol] 97 U/L Normal 40-135 [facility] ([place]) Comment on above: Performed By: #### A KAHLIL, ADIFF, CBC, CMP, GFR #### [address] [address] ALT [Catalytic activity/Vol] 56 U/L Normal 16-63 [facility] ([place]) Comment on above: Performed By: #### A KAHLIL, ADIFF, CBC, CMP, GFR #### [address] [address] AST [Catalytic activity/Vol] 27 U/L Normal 10-40 [facility] ([place]) Comment on above: Performed By: #### A KAHLIL, ADIFF, CBC, CMP, GFR #### [address] [address] Bili Total 0.2 mg/dL Normal 0.2-1.0 [facility] ([place]) Comment on above: Result Comment: Use of this assay is not recommended for patients undergoing treatment with eltrombopag due to the potential for falsely elevated results. Performed By: #### A KAHLIL, ADIFF, CBC, CMP, GFR #### [address] [address] BUN/Creatinine Ratio 9 ratio Normal 7-27 [facility] ([place]) Comment on above: Performed By: #### A KAHLIL, ADIFF, CBC, CMP, GFR #### [address] [address] Calcium [Mass/Vol] 9.2 mg/dL Normal 8.4-10.2 [facility] ([place]) Comment on above: Performed By: #### A KAHLIL, ADIFF, CBC, CMP, GFR #### [address] [address] Chloride [Moles/Vol] 102 mmol/L Normal 98-107 [facility] ([place] Comment on above: Performed By: #### A KAHLIL, ADIFF, CBC, CMP, GFR #### [address] [address] CO2 [Moles/Vol] 28 mmol/L Normal 22-29 [facility] ([place] Comment on above: Performed By: #### A KAHLIL, ADIFF, CBC, CMP, GFR #### [address] [address] Creatinine [Mass/Vol] 0.93 mg/dL Normal 0.70-1.30 [facility] ([place] Comment on above: Performed By: #### A KAHLIL, ADIFF, CBC, CMP, GFR #### [address] [address] Electrolyte Balance 9.0 mEq/L Normal 4.0-15.0 [facility] [place] Comment on above: Performed By: #### A KAHLIL, ADIFF, CBC, CMP, GFR #### [address] [address] Globulin 4.1 G/dL Normal [facility] ([place] Comment on above: Performed By: #### A KAHLIL, ADIFF, CBC, CMP, GFR #### [address] [address] Glucose [Mass/Vol] 191 mg/dL High 70-105 [facility] ([place] Comment on above: Performed By: #### A KAHLIL, ADIFF, CBC, CMP, GFR #### [address] [address] Potassium [Moles/Vol] 4.2 mmol/L Normal 3.5-5.1 [facility] ([place] Comment on above: Performed By: #### A KAHLIL, ADIFF, CBC, CMP, GFR #### [address] [address] Sodium [Moles/Vol] 139 mmol/L Normal 136-145 [facility] ([place]) Comment on above: Performed By: #### A KAHLIL, ADIFF, CBC, CMP, GFR #### [address] [address] Total Protein 7.7 G/dL Normal 6.4-8.2 [facility] ([place]) Comment on above: Performed By: #### A KAHLIL, ADIFF, CBC, CMP, GFR #### [address] [address] Urea nitrogen [Mass/Vol] 8 mg/dL Normal 7-18 [facility] ([place]) Comment on above: Performed By: #### A KAHLIL, ADIFF, CBC, CMP, GFR #### [address] [address] LIPIDon 07-25-2023 Cholesterol [Mass/Vol] 142 mg/dL Normal 0-200 [facility] ([place]) Comment on above: Result Comment: Chol esterol Reference Interval: Less than 200 Desirable 200-239 Borderline high risk 240 and above High risk Performed By: #### A KAHLIL, ADIFF, CBC, CMP, GFR #### [address] [address] Cholesterol in HDL [Mass/Vol] 41 mg/dL Normal 40-60 [facility] ([place]) Comment on above: Performed By: #### A KAHLIL, ADIFF, CBC, CMP, GFR #### [address] [address] Cholesterol in LDL [Mass/Vol] 78 mg/dL Normal 0-130 [facility] ([place]) Comment on above: Performed By: #### A KAHLIL, ADIFF, CBC, CMP, GFR #### [address] [address] Triglyceride [Mass/Vol] 114 mg/dL Normal 0-150 A [facility] ([place]) Comment on above: Result Comment: Trig lyceride Reference Interval: Less than 150 Normal 150-199 Borderline high risk 200-499 High risk 500 or higher Very high risk Performed By: #### A KAHLIL, ADIFF, CBC, CMP, GFR #### [address] [address] TSHon 07-25-2023 TSH Qn 1.49 m[IU]/L Normal 0.36-3.74 [facility] ([place]) Comment on above: Performed By: #### A KAHLIL, ADIFF, CBC, CMP, GFR #### [address] [address] QUANTTBon 06-08-2023 QFT Criteria Comment Normal [facility] ([place]) Comment on above: Result Comment: QuantiFERON-TB Gold Plus is a qualitative indirect test for M tuberculosis infection (including disease) and is intended for use in conjunction with risk assessment, radiography, and other medical and diagnostic evaluations. The QuantiFERON-TB Gold Plus result is determined by subtracting the Nil value from either TB antigen (Ag) value. The Mitogen tube serves as a control for the test. Performed By: #### A KAHLIL, ADIFF, CBC, CMP, GFR #### [place] [address] QFT Mitogen Value >10.00 Normal [facility] ([place]) Comment on above: Performed By: #### A KAHLIL, ADIFF, CBC, CMP, GFR #### [place] [address] QFT Nil Value 0.03 IU/mL Normal [facility] ([place] Comment on above: Performed By: #### A KAHLIL, ADIFF, CBC, CMP, GFR #### [place] [address] QFT TB1 Ag Value 0.03 IU/mL Normal [facility] ([place] Comment on above: Performed By: #### A KAHLIL, ADIFF, CBC, CMP, GFR #### [place] [address] QFT TB2 Ag Value 0.04 IU/mL Normal [facility] ([place] Comment on above: Performed By: #### A KAHLIL, ADIFF, CBC, CMP, GFR #### [place] [address] QFT-TB Gold Plus Clt Inc Negative Normal Negative [facility] ([place]) Comment on above: Result Comment: No r esponse to M tuberculosis antigens detected. Infection with M tuberculosis is unlikely, but high risk individuals should be considered for additional testing (ATS/IDSA/CDC Clinical Practice Guidelines, 2017). The reference range is an Antigen minus Nil result of <0.35 IU/mL. The specimen received for QuantiFERON testing was incubated by the ordering institution. Specific procedures outlined in our Directory of Services and in the package insert for the QuantiFERON Gold (In Tube) test must be followed to enable for proper stimulation of cells for the production of interferon gamma. Chemiluminescence immunoassay methodology Performed At: [facility] [id number] Tarsha Bill PhD Ph:[phone] Performed By: #### A KAHLIL, ADIFF, CBC, CMP, GFR #### [address] [address] .Auto Diffon 06-01-2023 Basophil, Absolute 0.1 10 3/mcL Normal 0.0-0.2 [facility] ([place]) Comment on above: Performed By: #### A KAHLIL, ADIFF, CBC, CMP, GFR #### [address] [address] Basophils/100 WBC (Bld) 0.8 % Normal 0.0-2.5 A [facility] ([place]) Comment on above: Performed By: #### A KAHLIL, ADIFF, CBC, CMP, GFR #### [address] [address] Eosinophil, Absolute 0.3 10 3/mcL Normal 0.0-0.4 [facility] ([place]) Comment on above: Performed By: #### A KAHLIL, ADIFF, CBC, CMP, GFR #### [address] [address] Eosinophils/100 WBC (Bld) 4.5 % Normal 0.0-7.0 [facility] ([place]) Comment on above: Performed By: #### A KAHLIL, ADIFF, CBC, CMP, GFR #### [address] [address] Lymphocyte, Absolute 2.0 10 3/mcL Normal 0.8-3.9 [facility] ([place]) Comment on above: Performed By: #### A KAHLIL, ADIFF, CBC, CMP, GFR #### [address] [address] Lymphocytes/100 WBC (Bld) 28.2 % Normal 10.0-50.0 [facility] ([place]) Comment on above: Performed By: #### A KAHLIL, ADIFF, CBC, CMP, GFR #### [address] [address] Monocyte, Absolute 0.9 10 3/mcL Normal 0.2-1.0 [facility] ([place]) Comment on above: Performed By: #### A KAHLIL, ADIFF, CBC, CMP, GFR #### [address] [address] Monocytes/100 WBC (Bld) 12.1 % Normal 1.7-13.0 A [facility] ([place]) Comment on above: Performed By: #### A KAHLIL, ADIFF, CBC, CMP, GFR #### [address] [address] Neutrophils/100 WBC (Bld) 54.4 % Normal 37.0-80.0 [facility] ([place]) Comment on above: Performed By: #### A KAHLIL, ADIFF, CBC, CMP, GFR #### [address] [address] .GFRon 06-01-2023 GFR 116 ml/min/1.73sqm Normal [facility] ([place]) Comment on above: Result Comment: GFR Population mean for , Non- Americans Ages 20-29 = 116 mL/min/1.73 sq.m. Ages 30-39 = 107 mL/min/1.73 sq.m. Ages 40-49 = 99 mL/min/1.73 sq.m. Ages 50-59 = 93 mL/min/1.73 sq.m. Ages 60-69 = 85 mL/min/1.73 sq.m. Ages 70+ = 75 mL/min/1.73 sq.m. Chronic Kidney Disease: Less than 60 mL/min/1.73 square meters End Stage Renal Disease: Less than 15 mL/min/1.73 square meters Performed By: #### A KAHLIL, ADIFF, CBC, CMP, GFR #### [address] [address] GFR Non- 96 ml/min/1.73sqm Normal [facility] ([place] Comment on above: Result Comment: GFR Population mean for , Non- Americans Ages 20-29 = 116 mL/min/1.73 sq.m. Ages 30-39 = 107 mL/min/1.73 sq.m. Ages 40-49 = 99 mL/min/1.73 sq.m. Ages 50-59 = 93 mL/min/1.73 sq.m. Ages 60-69 = 85 mL/min/1.73 sq.m. Ages 70+ = 75 mL/min/1.73 sq.m. Chronic Kidney Disease: Less than 60 mL/min/1.73 square meters End Stage Renal Disease: Less than 15 mL/min/1.73 square meters Performed By: #### A KAHLIL, ADIFF, CBC, CMP, GFR #### [place] [address] .NEUABSon 06-01-2023 Neutrophil, Absolute 3.8 10 3/mcL Normal 2.9-6.2 [facility] ([place]) Comment on above: Performed By: #### A KAHLIL, ADIFF, CBC, CMP, GFR #### [place] [address] CBCon 06-01-2023 Erythrocyte distribution width (RBC) [Ratio] 12.8 % Normal 11.5-14.5 [facility] ([place]) Comment on above: Performed By: #### A KAHLIL, ADIFF, CBC, CMP, GFR #### [place] [address] Hematocrit (Bld) [Volume fraction] 42.2 % Normal 42.0-52.0 [facility] ([place]) Comment on above: Performed By: #### A KAHLIL, ADIFF, CBC, CMP, GFR #### [place] [address] Hgb 14.7 G/dL Normal 14.0-18.0 [facility] ([place]) Comment on above: Performed By: #### A KAHLIL, ADIFF, CBC, CMP, GFR #### [place] [id number] MCH (RBC) [Entitic mass] 30.3 pg Normal 27.0-31.2 [facility] ([place]) Comment on above: Performed By: #### A KAHLIL, ADIFF, CBC, CMP, GFR #### [address] [address] MCHC 34.8 G/dL Normal 31.8-35.4 [facility] ([place]) Comment on above: Performed By: #### A KAHLIL, ADIFF, CBC, CMP, GFR #### [address] [address] MCV (RBC) [Entitic vol] 86.9 fL Normal 80.0-94.0 A [facility] ([place]) Comment on above: Performed By: #### A KAHLIL, ADIFF, CBC, CMP, GFR #### [address] [address] Platelet 330 10 3/mcL Normal 130-400 [facility] ([place]) Comment on above: Performed By: #### A KAHLIL, ADIFF, CBC, CMP, GFR #### [address] [address] Platelet mean volume (Bld) [Entitic vol] 7.3 fL Low 7.4-10.4 [facility] ([place]) Comment on above: Performed By: #### A KAHLIL, ADIFF, CBC, CMP, GFR #### [address] [address] RBC 4.86 10 6/mcL Normal 4.04-6.13 [facility] ([place]) Comment on above: Performed By: #### A KAHLIL, ADIFF, CBC, CMP, GFR #### [address] [address] WBC 7.0 10 3/mcL Normal 4.6-10.8 [facility] ([place]) Comment on above: Performed By: #### A KAHLIL, ADIFF, CBC, CMP, GFR #### [address] [address] CMPon 06-01-2023 Albumin Level 4.0 G/dL Normal 3.5-5.0 [facility] ([place]) Comment on above: Performed By: #### A KAHLIL, ADIFF, CBC, CMP, GFR #### [address] [place] [address] Albumin/Globulin [Mass ratio] 1.0 {ratio} Low 1.1-2.5 [facility] ([place]) Comment on above: Performed By: #### A KAHLIL, ADIFF, CBC, CMP, GFR #### [address] [address] ALP [Catalytic activity/Vol] 83 U/L Normal 40-135 [facility] ([place]) Comment on above: Performed By: #### A KAHLIL, ADIFF, CBC, CMP, GFR #### [address] [address] ALT [Catalytic activity/Vol] 54 U/L Normal 16-63 [facility] ([place]) Comment on above: Performed By: #### A KAHLIL, ADIFF, CBC, CMP, GFR #### [place] [address] AST [Catalytic activity/Vol] 26 U/L Normal 10-40 [facility] ([place]) Comment on above: Performed By: #### A KAHLIL, ADIFF, CBC, CMP, GFR #### [address] [address] Bili Total 0.5 mg/dL Normal 0.2-1.0 [facility] ([place]) Comment on above: Result Comment: Use of this assay is not recommended for patients undergoing treatment with eltrombopag due to the potential for falsely elevated results. Performed By: #### A KAHLIL, ADIFF, CBC, CMP, GFR #### [address] [address] BUN/Creatinine Ratio 14 ratio Normal 7-27 [facility] ([place]) Comment on above: Performed By: #### A KAHLIL, ADIFF, CBC, CMP, GFR #### [place] [id number] Calcium [Mass/Vol] 9.8 mg/dL Normal 8.4-10.2 [facility] ([place]) Comment on above: Performed By: #### A KAHLIL, ADIFF, CBC, CMP, GFR #### [address] [address] Chloride [Moles/Vol] 103 mmol/L Normal 98-107 [facility] ([place]) Comment on above: Performed By: #### A KAHLIL, ADIFF, CBC, CMP, GFR #### [address] [address] CO2 [Moles/Vol] 29 mmol/L Normal 22-29 [facility] ([place]) Comment on above: Performed By: #### A KAHLIL, ADIFF, CBC, CMP, GFR #### [address] [address] Creatinine [Mass/Vol] 0.93 mg/dL Normal 0.70-1.30 [facility] ([place]) Comment on above: Performed By: #### A KAHLIL, ADIFF, CBC, CMP, GFR #### [address] [address] Electrolyte Balance 9.0 mEq/L Normal 4.0-15.0 [facility] [place] Comment [place] above: Performed By: #### A KAHLIL, ADIFF, CBC, CMP, GFR #### [address] [address] Globulin 4.1 G/dL Normal [facility] ([place]) Comment on above: Performed By: #### A KAHLIL, ADIFF, CBC, CMP, GFR #### [address] [address] Glucose [Mass/Vol] 122 mg/dL High 70-105 [facility] ([place]) Comment on above: Performed By: #### A KAHLIL, ADIFF, CBC, CMP, GFR #### [address] [address] Potassium [Moles/Vol] 5.1 mmol/L Normal 3.5-5.1 [facility] ([place]) Comment on above: Performed By: #### A KAHLIL, ADIFF, CBC, CMP, GFR #### [address] [address] Sodium [Moles/Vol] 141 mmol/L Normal 136-145 [facility] ([place]) Comment on above: Performed By: #### A KAHLIL, ADIFF, CBC, CMP, GFR #### [place] [address] [place], [place] [address] Total Protein 8.1 G/dL Normal 6.4-8.2 [facility]) Comment on above: Performed By: #### A KAHLIL, ADIFF, CBC, CMP, GFR #### [place] [address] [place], [place] [address] Urea nitrogen [Mass/Vol] 13 mg/dL Normal 7-18 [facility] ([place]) Comment on above: Performed By: #### A KAHLIL, ADIFF, CBC, CMP, GFR #### [address] [address] LABORATORYOrdered By: SYSTEM SYSTEM on 06-01-2023 Albumin BCP dye [Mass/Vol] 4.0 G/dL Normal 3.5 - 5.0 G/dL AO ADM SS Albumin/Globulin [Mass ratio] 1.0 {ratio} Low 1.1 - 2.5 ratio AO ADM SS ALP [Catalytic activity/Vol] 83 U/L Normal 40 - 135 U/L AO ADM SS ALT With P-5'-P [Catalytic activity/Vol] 54 U/L Normal 16 - 63 U/L AO ADM SS AST With P-5'-P [Catalytic activity/Vol] 26 U/L Normal 10 - 40 U/L AO ADM SS Basophil, Absolute 0.1 103/mcL Normal 0.0 - 0.2 10^3/mcL AO Workflow SS Basophils/100 WBC (Bld) 0.8 % Normal 0.0 - 2.5 % AO Workflow SS Bilirubin [Mass/Vol] 0.5 mg/dL Normal 0.2 - 1 .0 mg/dL AO ADM SS Comment on above: Interpretive Data: U se of this assay is not recommended for patients undergoing treatment with eltrombopag due to the potential for falsely elevated results. Calcium [Mass/Vol] 9.8 mg/dL Normal 8.4 - 10. 2 mg/dL AO ADM SS Chloride [Moles/Vol] 103 mmol/L Normal 98 - 10 7 mmol/L AO ADM SS CO2 [Moles/Vol] 29 mmol/L Normal 22 - 29 mmol/L AO ADM SS Creatinine [Mass/Vol] 0.93 mg/dL Normal 0.70 - 1.30 mg/dL AO ADM SS Electrolyte Balance 9.0 mEq/L Normal 4.0 - 15 .0 mEq/L AO ADM SS Eosinophil, Absolute 0.3 103/mcL Normal 0.0 - 0 .4 10^3/mcL AO Workflow SS Eosinophils/100 WBC (Bld) 4.5 % Normal 0.0 - 7.0 % AO Workflow SS Erythrocyte distribution width (RBC) [Ratio] 12.8 % Normal 11.5 - 14.5 % AO Workflow SS GFR/1.73 sq M.predicted among blacks MDRD (S/P/Bld) [Vol rate/Area] 116 ml/min/1.73sqm Invalid Interpretation Code AO Chemistry S Comment on above: Interpretive Data: GFR Population mean for , Non- Americans Ages 20-29 = 116 mL/min/1.73 sq.m. Ages 30-39 = 107 mL/min/1.73 sq.m. Ages 40-49 = 99 mL/min/1.73 sq.m. Ages 50-59 = 93 mL/min/1.73 sq.m. Ages 60-69 = 85 mL/min/1.73 sq.m. Ages 70+ = 75 mL/min/1.73 sq.m. Chronic Kidney Disease: Less than 60 mL/min/1.73 square meters End Stage Renal Disease: Less than 15 mL/min/1.73 square meters GFR/1.73 sq M.predicted among non-blacks MDRD (S/P/Bld) [Vol rate/Area] 96 ml/min/1.73sqm Invalid Interpretation Code AO Chemistry S Comment on above: Interpretive Data: GFR Population mean for , Non- Americans Ages 20-29 = 116 mL/min/1.73 sq.m. Ages 30-39 = 107 mL/min/1.73 sq.m. Ages 40-49 = 99 mL/min/1.73 sq.m. Ages 50-59 = 93 mL/min/1.73 sq.m. Ages 60-69 = 85 mL/min/1.73 sq.m. Ages 70+ = 75 mL/min/1.73 sq.m. Chronic Kidney Disease: Less than 60 mL/min/1.73 square meters End Stage Renal Disease: Less than 15 mL/min/1.73 square meters Globulin 4.1 G/dL Invalid Interpretation Code AO ADM SS Glucose [Mass/Vol] 122 mg/dL High 70 - 105 mg/dL AO ADM SS Hematocrit (Bld) [Volume fraction] 42.2 % Normal 42.0 - 52.0 % AO Workflow SS Hemoglobin (Bld) [Mass/Vol] 14.7 G/dL Normal 14.0 - 18.0 G/dL AO Workflow SS Lymphocyte, Absolute 2.0 103/mcL Normal 0.8 - 3 .9 10^3/mcL AO Workflow SS Lymphocytes/100 WBC (Bld) 28.2 % Normal 10.0 - 50.0 % AO Workflow SS MCH (RBC) [Entitic mass] 30.3 pg Normal 27. 0 - 31.2 pg AO Workflow SS MCHC 34.8 G/dL Normal 31.8 - 35.4 G/dL AO Workflow SS MCV (RBC) [Entitic vol] 86.9 fL Normal 80.0 - 94.0 fL AO Workflow SS Monocyte, Absolute 0.9 103/mcL Normal 0.2 - 1.0 10^3/mcL AO Workflow SS Monocytes/100 WBC (Bld) 12.1 % Normal 1.7 - 13.0 % AO Workflow SS Neutrophil, Absolute 3.8 103/mcL Normal 2.9 - 6 .2 10^3/mcL AO Workflow SS Neutrophils/100 WBC (Bld) 54.4 % Normal 37.0 - 80.0 % AO Workflow SS Platelet mean volume (Bld) [Entitic vol] 7.3 fL Low 7.4 - 10.4 fL AO Workflow SS Platelets (Bld) [#/Vol] 330 103/mcL Normal 130 - 400 10^3/mcL AO Workflow SS Potassium [Moles/Vol] 5.1 mmol/L Normal 3.5 - 5.1 mmol/L AO ADM SS Protein [Mass/Vol] 8.1 G/dL Normal 6.4 - 8.2 G/dL AO ADM SS RBC (Bld) [#/Vol] 4.86 106/mcL Normal 4.04 - 6.1 3 10^6/mcL AO Workflow SS Sodium [Moles/Vol] 141 mmol/L Normal 136 - 145 mmol/L AO ADM SS Urea nitrogen [Mass/Vol] 13 mg/dL Normal 7 - 18 mg/dL AO ADM SS Urea nitrogen/Creatinine [Mass ratio] 14 ratio Normal 7 - 27 ratio AO ADM SS WBC (Bld) [#/Vol] 7.0 103/mcL Normal 4.6 - 10.8 10^3/mcL AO Workflow SS .GFRon 02-15-2023 GFR Non- 90 ml/min/1.73sqm Normal [facility] ([place]) Comment on above: Result Comment: GFR Population mean for , Non- Americans Ages 20-29 = 116 mL/min/1.73 sq.m. Ages 30-39 = 107 mL/min/1.73 sq.m. Ages 40-49 = 99 mL/min/1.73 sq.m. Ages 50-59 = 93 mL/min/1.73 sq.m. Ages 60-69 = 85 mL/min/1.73 sq.m. Ages 70+ = 75 mL/min/1.73 sq.m. Chronic Kidney Disease: Less than 60 mL/min/1.73 square meters End Stage Renal Disease: Less than 15 mL/min/1.73 square meters Performed By: #### A FPS #### [address] [address] #### GFR, CMP, PRO #### [address] [address] GFR 110 ml/min/1.73sqm Normal [facility] ([place]) Comment on above: Result Comment: GFR Population mean for , Non- Americans Ages 20-29 = 116 mL/min/1.73 sq.m. Ages 30-39 = 107 mL/min/1.73 sq.m. Ages 40-49 = 99 mL/min/1.73 sq.m. Ages 50-59 = 93 mL/min/1.73 sq.m. Ages 60-69 = 85 mL/min/1.73 sq.m. Ages 70+ = 75 mL/min/1.73 sq.m. Chronic Kidney Disease: Less than 60 mL/min/1.73 square meters End Stage Renal Disease: Less than 15 mL/min/1.73 square meters Performed By: #### A FPS #### [place] [address] #### GFR, CMP, PRO #### [address] [address] AFPSon 02-15-2023 AFP, Tumor Marker 5.7 ng/mL Normal 0.0-8.5 [facility] ([place]) Comment on above: Result Comment: Lori ent results determined by assays using different manufacturers for methods may not be comparable. Performed By: #### A FPS #### [place] [address] #### GFR, CMP, PRO #### [address] [address] CMPon 02-15-2023 Albumin Level 4.2 G/dL Normal 3.5-5.0 [facility] ([place]) Comment on above: Performed By: #### A FPS #### [place] [address] #### GFR, CMP, PRO #### [address] [address] Albumin/Globulin [Mass ratio] 1.2 {ratio} Normal 1.1-2.5 [facility] ([place]) Comment on above: Performed By: #### A FPS #### [place] [address] #### GFR, CMP, PRO #### [address] [address] ALP [Catalytic activity/Vol] 66 U/L Normal 40-135 [facility] ([place]) Comment on above: Performed By: #### A FPS #### [place] [address] #### GFR, CMP, PRO #### [address] [address] ALT [Catalytic activity/Vol] 61 U/L Normal 16-63 [facility] ([place]) Comment on above: Performed By: #### A FPS #### [place] [address] #### GFR, CMP, PRO #### [address] [address] AST [Catalytic activity/Vol] 29 U/L Normal 10-40 [facility] ([place]) Comment on above: Performed By: #### A FPS #### [place] [address] #### GFR, CMP, PRO #### [address] [address] Bili Total 0.6 mg/dL Normal 0.2-1.0 [facility] ([place]) Comment on above: Result Comment: Use of this assay is not recommended for patients undergoing treatment with eltrombopag due to the potential for falsely elevated results. Performed By: #### A FPS #### [place] [address] #### GFR, CMP, PRO #### [address] [address] BUN/Creatinine Ratio 9 ratio Normal 7-27 [facility] ([place]) Comment on above: Performed By: #### A FPS #### [place] [address] #### GFR, CMP, PRO #### [address] [address] Calcium [Mass/Vol] 9.6 mg/dL Normal 8.4-10.2 [facility] ([place]) Comment on above: Performed By: #### A FPS #### [place] [address] #### GFR, CMP, PRO #### [address] [address] Chloride [Moles/Vol] 103 mmol/L Normal 98-107 [facility] ([place]) Comment on above: Performed By: #### A FPS #### [place] [address] #### GFR, CMP, PRO #### [address] [address] CO2 [Moles/Vol] 29 mmol/L Normal 22-29 [facility] ([place]) Comment on above: Performed By: #### A FPS #### [place] [address] #### GFR, CMP, PRO #### [address] [address] Creatinine [Mass/Vol] 0.98 mg/dL Normal 0.70-1.30 [facility] ([place]) Comment on above: Performed By: #### A FPS #### [place] [address] #### GFR, CMP, PRO #### [address] [address] Electrolyte Balance 8.0 mEq/L Normal 4.0-15.0 [facility] [place] Comment on above: Performed By: #### A FPS #### [place] [address] #### GFR, CMP, PRO #### [address] [address] Globulin 3.6 G/dL Normal [facility] ([place]) Comment on above: Performed By: #### A FPS #### [place] [address] #### GFR, CMP, PRO #### [address] [address] Glucose [Mass/Vol] 145 mg/dL High 70-105 [facility] ([place]) Comment on above: Performed By: #### A FPS #### [place] [address] #### GFR, CMP, PRO #### [address] [address] Potassium [Moles/Vol] 4.5 mmol/L Normal 3.5-5.1 [facility] ([place]) Comment on above: Performed By: #### A FPS #### [place] [address] #### GFR, CMP, PRO #### [address] [address] Sodium [Moles/Vol] 140 mmol/L Normal 136-145 [facility] ([place]) Comment on above: Performed By: #### A FPS #### [address] [address] #### GFR, CMP, PRO #### [place] [address] [place], [place] [address] Total Protein 7.8 G/dL Normal 6.4-8.2 [facility] ([place]) Comment on above: Performed By: #### A FPS #### [place] [address] #### GFR, CMP, PRO #### [place] [address] [place], [place] [address] Urea nitrogen [Mass/Vol] 9 mg/dL Normal 7-18 [facility] ([place] Comment on above: Performed By: #### A FPS #### [place] [address] #### GFR, CMP, PRO #### [address] [address] LABORATORYOrdered By: SYSTEM SYSTEM on 02-15-2023 AFP [Mass/Vol] 5.7 ng/mL Invalid Interpretation Code 0.0 - 8.5 ng/mL AH ADM SS Comment on above: Interpretive Data: P atient results determined by assays using different manufacturers for methods may not be comparable. Albumin BCP dye [Mass/Vol] 4.2 G/dL Invalid Interpretation Code 3.5 - 5.0 G/dL AO ADM SS Albumin/Globulin [Mass ratio] 1.2 {ratio} Invalid Interpretation Code 1.1 - 2.5 ratio AO ADM SS ALP [Catalytic activity/Vol] 66 U/L Invalid Interpretation Code 40 - 135 U/L AO ADM SS ALT With P-5'-P [Catalytic activity/Vol] 61 U/L Invalid Interpretation Code 16 - 63 U/L AO ADM SS AST With P-5'-P [Catalytic activity/Vol] 29 U/L Invalid Interpretation Code 10 - 40 U/L AO ADM SS Bilirubin [Mass/Vol] 0.6 mg/dL Invalid Interpretation Code 0.2 - 1.0 mg/dL AO ADM SS Comment on above: Interpretive Data: U se of this assay is not recommended for patients undergoing treatment with eltrombopag due to the potential for falsely elevated results. Calcium [Mass/Vol] 9.6 mg/dL Invalid Interpretation Code 8.4 - 10.2 mg/dL AO ADM SS Chloride [Moles/Vol] 103 mmol/L Invalid Interpretation Code 98 - 107 mmol/L AO ADM SS CO2 [Moles/Vol] 29 mmol/L Invalid Interpretation Code 22 - 29 mmol/L AO ADM SS Creatinine [Mass/Vol] 0.98 mg/dL Invalid Interpretation Code 0.70 - 1.30 mg/dL AO ADM SS Electrolyte Balance 8.0 mEq/L Invalid Interpretation Code 4.0 - 15.0 mEq/L AO ADM SS GFR/1.73 sq M.predicted among blacks MDRD (S/P/Bld) [Vol rate/Area] 110 ml/min/1.73sqm Invalid Interpretation Code AO Chemistry S Comment on above: Interpretive Data: GFR Population mean for , Non- Americans Ages 20-29 = 116 mL/min/1.73 sq.m. Ages 30-39 = 107 mL/min/1.73 sq.m. Ages 40-49 = 99 mL/min/1.73 sq.m. Ages 50-59 = 93 mL/min/1.73 sq.m. Ages 60-69 = 85 mL/min/1.73 sq.m. Ages 70+ = 75 mL/min/1.73 sq.m. Chronic Kidney Disease: Less than 60 mL/min/1.73 square meters End Stage Renal Disease: Less than 15 mL/min/1.73 square meters GFR/1.73 sq M.predicted among non-blacks MDRD (S/P/Bld) [Vol rate/Area] 90 ml/min/1.73sqm Invalid Interpretation Code AO Chemistry S Comment on above: Interpretive Data: GFR Population mean for , Non- Americans Ages 20-29 = 116 mL/min/1.73 sq.m. Ages 30-39 = 107 mL/min/1.73 sq.m. Ages 40-49 = 99 mL/min/1.73 sq.m. Ages 50-59 = 93 mL/min/1.73 sq.m. Ages 60-69 = 85 mL/min/1.73 sq.m. Ages 70+ = 75 mL/min/1.73 sq.m. Chronic Kidney Disease: Less than 60 mL/min/1.73 square meters End Stage Renal Disease: Less than 15 mL/min/1.73 square meters Globulin 3.6 G/dL Invalid Interpretation Code AO ADM SS Glucose [Mass/Vol] 145 mg/dL Invalid Interpretation Code 70 - 105 mg/dL AO ADM SS Potassium [Moles/Vol] 4.5 mmol/L Invalid Interpretation Code 3.5 - 5.1 mmol/L AO ADM SS Protein [Mass/Vol] 7.8 G/dL Invalid Interpretation Code 6.4 - 8.2 G/dL AO ADM SS Sodium [Moles/Vol] 140 mmol/L Invalid Interpretation Code 136 - 145 mmol/L AO ADM SS Urea nitrogen [Mass/Vol] 9 mg/dL Invalid Interpretation Code 7 - 18 mg/dL AO ADM SS Urea nitrogen/Creatinine [Mass ratio] 9 ratio Invalid Interpretation Code 7 - 27 ratio AO ADM SS LABORATORYOrdered By: Amelia Vicente on 02-15-2023 INR Coag (PPP) [Relative time] 1.1 {INR} Invalid Interpretation Code AO [facility] SS Comment on above: Interpretive Data: Yuliet he [employer] (CHEST, 1991, 102:[id number]) recommended therapeutic range for oral anticoagulant therapy is: LOW RISK: Prophylaxis of venous thrombosis INR: 2.0-3.0 Treatment of pulmonary embolism 2.0-3.0 Prevention of systemic embolism 2.0-3.0 HIGH RISK: Mechanical prosthetic valves 2.5-3.5 PT Coag (PPP) [Time] 12.8 s Invalid Interpretation Code 9.0 - 14.2 seconds AO [facility] SS PROon 02-15-2023 PT Coag (PPP) [Time] 12.8 s Normal 9.0-14.2 [facility] ([place] Comment on above: Performed By: #### A FPS #### [address] [address] #### GFR, CMP, PRO #### [address] [address] PT International Ratio 1.1 Normal [facility] ([place]) Comment on above: Result Comment: [employer] (CHEST, 1991, 102:[id number]) recommended therapeutic range for oral anticoagulant therapy is: LOW RISK: Prophylaxis of venous thrombosis INR: 2.0-3.0 Treatment of pulmonary embolism 2.0-3.0 Prevention of systemic embolism 2.0-3.0 HIGH RISK: Mechanical prosthetic valves 2.5-3.5 Performed By: #### A FPS #### [facility] [address] [place] [id number] #### GFR, CMP, PRO #### [address] [address] .Auto Diffon 11-19-2022 Basophil, Absolute 0.1 10 3/mcL Normal 0.0-0.2 [facility] ([place]) Comment on above: Performed By: #### A KAHLIL, ADIFF, CBC, CMP, GFR #### [address] [address] Basophils/100 WBC (Bld) 0.9 % Normal 0.0-2.5 A [facility] ([place]) Comment on above: Performed By: #### A KAHLIL, ADIFF, CBC, CMP, GFR #### [address] [address] Eosinophil, Absolute 0.3 10 3/mcL Normal 0.0-0.4 [facility] ([place]) Comment on above: Performed By: #### A KAHLIL, ADIFF, CBC, CMP, GFR #### [address] [address] Eosinophils/100 WBC (Bld) 4.2 % Normal 0.0-7.0 [facility] ([place]) Comment on above: Performed By: #### A KAHLIL, ADIFF, CBC, CMP, GFR #### [address] [address] Lymphocyte, Absolute 2.1 10 3/mcL Normal 0.8-3.9 [facility] ([place]) Comment on above: Performed By: #### A KAHLIL, ADIFF, CBC, CMP, GFR #### [address] [address] Lymphocytes/100 WBC (Bld) 31.6 % Normal 10.0-50.0 [facility] ([place]) Comment on above: Performed By: #### A KAHLIL, ADIFF, CBC, CMP, GFR #### [address] [address] Monocyte, Absolute 0.6 10 3/mcL Normal 0.2-1.0 [facility] ([place]) Comment on above: Performed By: #### A KAHLIL, ADIFF, CBC, CMP, GFR #### [address] [address] Monocytes/100 WBC (Bld) 8.5 % Normal 1.7-13.0 [facility] ([place]) Comment on above: Performed By: #### A KAHLIL, ADIFF, CBC, CMP, GFR #### [address] [address] Neutrophils/100 WBC (Bld) 54.8 % Normal 37.0-80.0 [facility] ([place]) Comment on above: Performed By: #### A KAHLIL, ADIFF, CBC, CMP, GFR #### [address] [address] .GFRon 11-19-2022 GFR 109 ml/min/1.73sqm Normal [facility] ([place]) Comment on above: Result Comment: GFR Population mean for , Non- Americans Ages 20-29 = 116 mL/min/1.73 sq.m. Ages 30-39 = 107 mL/min/1.73 sq.m. Ages 40-49 = 99 mL/min/1.73 sq.m. Ages 50-59 = 93 mL/min/1.73 sq.m. Ages 60-69 = 85 mL/min/1.73 sq.m. Ages 70+ = 75 mL/min/1.73 sq.m. Chronic Kidney Disease: Less than 60 mL/min/1.73 square meters End Stage Renal Disease: Less than 15 mL/min/1.73 square meters Performed By: #### A KAHLIL, ADIFF, CBC, CMP, GFR #### [address] [address] GFR Non- 90 ml/min/1.73sqm Normal [facility] ([place]) Comment on above: Result Comment: GFR Population mean for , Non- Americans Ages 20-29 = 116 mL/min/1.73 sq.m. Ages 30-39 = 107 mL/min/1.73 sq.m. Ages 40-49 = 99 mL/min/1.73 sq.m. Ages 50-59 = 93 mL/min/1.73 sq.m. Ages 60-69 = 85 mL/min/1.73 sq.m. Ages 70+ = 75 mL/min/1.73 sq.m. Chronic Kidney Disease: Less than 60 mL/min/1.73 square meters End Stage Renal Disease: Less than 15 mL/min/1.73 square meters Performed By: #### A KAHLIL, ADIFF, CBC, CMP, GFR #### [address] [address] .NEUABSon 11-19-2022 Neutrophil, Absolute 3.7 10 3/mcL Normal 2.9-6.2 [facility] ([place]) Comment on above: Performed By: #### A KAHLIL, ADIFF, CBC, CMP, GFR #### [address] [address] CBCon 11-19-2022 Erythrocyte distribution width (RBC) [Ratio] 13.9 % Normal 11.5-14.5 [facility] ([place]) Comment on above: Performed By: #### A KAHLIL, ADIFF, CBC, CMP, GFR #### [address] [address] Hematocrit (Bld) [Volume fraction] 43.7 % Normal 42.0-52.0 [facility] ([place]) Comment on above: Performed By: #### A KAHLIL, ADIFF, CBC, CMP, GFR #### [address] [address] Hgb 14.9 G/dL Normal 14.0-18.0 [facility] ([place]) Comment on above: Performed By: #### A KAHLIL, ADIFF, CBC, CMP, GFR #### [address] [address] MCH (RBC) [Entitic mass] 35.8 pg High 27.0-31.2 [facility] ([place]) Comment on above: Performed By: #### A KAHLIL, ADIFF, CBC, CMP, GFR #### [address] [address] MCHC 34.1 G/dL Normal 31.8-35.4 [facility] ([place]) Comment on above: Performed By: #### A KAHLIL, ADIFF, CBC, CMP, GFR #### [address] [address] MCV (RBC) [Entitic vol] 105.1 fL High 80.0-94.0 A [facility] ([place]) Comment on above: Performed By: #### A KAHLIL, ADIFF, CBC, CMP, GFR #### [address] [address] Platelet 273 10 3/mcL Normal 130-400 [facility] ([place]) Comment on above: Performed By: #### A KAHLIL, ADIFF, CBC, CMP, GFR #### [address] [address] Platelet mean volume (Bld) [Entitic vol] 7.0 fL Low 7.4-10.4 [facility] ([place]) Comment on above: Performed By: #### A KAHLIL, ADIFF, CBC, CMP, GFR #### [address] [address] RBC 4.16 10 6/mcL Normal 4.04-6.13 [facility] ([place]) Comment on above: Performed By: #### A KAHLIL, ADIFF, CBC, CMP, GFR #### [address] [address] WBC 6.8 10 3/mcL Normal 4.6-10.8 [facility] ([place]) Comment on above: Performed By: #### A KAHLIL, ADIFF, CBC, CMP, GFR #### [address] [address] CMPon 11-19-2022 Albumin Level 4.1 G/dL Normal 3.5-5.0 [facility] ([place]) Comment on above: Performed By: #### A KAHLIL, ADIFF, CBC, CMP, GFR #### [address] [address] Albumin/Globulin [Mass ratio] 1.1 {ratio} Normal 1.1-2.5 [facility] ([place]) Comment on above: Performed By: #### A KAHLIL, ADIFF, CBC, CMP, GFR #### [address] [address] ALP [Catalytic activity/Vol] 89 U/L Normal 40-135 [facility] ([place]) Comment on above: Performed By: #### A KAHLIL, ADIFF, CBC, CMP, GFR #### [address] [address] ALT [Catalytic activity/Vol] 183 U/L High 16-63 [facility] ([place]) Comment on above: Performed By: #### A KAHLIL, ADIFF, CBC, CMP, GFR #### [address] [address] AST [Catalytic activity/Vol] 95 U/L High 10-40 [facility] ([place]) Comment on above: Performed By: #### A KAHLIL, ADIFF, CBC, CMP, GFR #### [address] [address] Bili Total 0.8 mg/dL Normal 0.2-1.0 [facility] ([place]) Comment on above: Result Comment: Use of this assay is not recommended for patients undergoing treatment with eltrombopag due to the potential for falsely elevated results. Performed By: #### A KAHLIL, ADIFF, CBC, CMP, GFR #### [address] [address] BUN/Creatinine Ratio 7 ratio Normal 7-27 [facility] ([place]) Comment on above: Performed By: #### A KAHLIL, ADIFF, CBC, CMP, GFR #### [address] [address] Calcium [Mass/Vol] 10.0 mg/dL Normal 8.4-10.2 [facility] ([place]) Comment on above: Performed By: #### A KAHLIL, ADIFF, CBC, CMP, GFR #### [address] [address] Chloride [Moles/Vol] 103 mmol/L Normal 98-107 [facility] ([place]) Comment on above: Performed By: #### A KAHLIL, ADIFF, CBC, CMP, GFR #### [place] [address] CO2 [Moles/Vol] 29 mmol/L Normal 22-29 [facility] ([place]) Comment on above: Performed By: #### A KAHLIL, ADIFF, CBC, CMP, GFR #### [place] [address] Creatinine [Mass/Vol] 0.99 mg/dL Normal 0.70-1.30 [facility] ([place]) Comment on above: Performed By: #### A KAHLIL, ADIFF, CBC, CMP, GFR #### [place] [id number] Electrolyte Balance 10.0 mEq/L Normal 4.0-15.0 [facility] ([place]) Comment on above: Performed By: #### A KAHLIL, ADIFF, CBC, CMP, GFR #### [place] [id number] Globulin 3.8 G/dL Normal [facility] ([place]) Comment on above: Performed By: #### A KAHLIL, ADIFF, CBC, CMP, GFR #### [address] [address] Glucose [Mass/Vol] 183 mg/dL High 70-105 [facility] ([place]) Comment on above: Performed By: #### A KAHLIL, ADIFF, CBC, CMP, GFR #### [place] [address] Potassium [Moles/Vol] 5.0 mmol/L Normal 3.5-5.1 [facility] ([place]) Comment on above: Performed By: #### A KAHLIL, ADIFF, CBC, CMP, GFR #### [place] [address] [place], [place] [address] Sodium [Moles/Vol] 142 mmol/L Normal 136-145 [facility] ([place]) Comment on above: Performed By: #### A KAHLIL, ADIFF, CBC, CMP, GFR #### [address] [address] Total Protein 7.9 G/dL Normal 6.4-8.2 [facility] ([place]) Comment on above: Performed By: #### A KAHLIL, ADIFF, CBC, CMP, GFR #### [address] [address] Urea nitrogen [Mass/Vol] 7 mg/dL Normal 7-18 [facility] ([place]) Comment on above: Performed By: #### A KAHLIL, ADIFF, CBC, CMP, GFR #### [address] [address] LABORATORYOrdered By: SYSTEM SYSTEM on 11-19-2022 Albumin BCP dye [Mass/Vol] 4.1 G/dL Invalid Interpretation Code 3.5 - 5.0 G/dL AO ADM SS Albumin/Globulin [Mass ratio] 1.1 {ratio} Invalid Interpretation Code 1.1 - 2.5 ratio AO ADM SS ALP [Catalytic activity/Vol] 89 U/L Invalid Interpretation Code 40 - 135 U/L AO ADM SS ALT With P-5'-P [Catalytic activity/Vol] 183 U/L Invalid Interpretation Code 16 - 63 U/L AO ADM SS AST With P-5'-P [Catalytic activity/Vol] 95 U/L Invalid Interpretation Code 10 - 40 U/L AO ADM SS Basophil, Absolute 0.1 103/mcL Invalid Interpretation Code 0.0 - 0.2 10^3/mcL AO Workflow SS Basophils/100 WBC (Bld) 0.9 % Invalid Interpretation Code 0.0 - 2.5 % AO Workflow SS Bilirubin [Mass/Vol] 0.8 mg/dL Invalid Interpretation Code 0.2 - 1.0 mg/dL AO ADM SS Calcium [Mass/Vol] 10.0 mg/dL Invalid Interpretation Code 8.4 - 10.2 mg/dL AO ADM SS Chloride [Moles/Vol] 103 mmol/L Invalid Interpretation Code 98 - 107 mmol/L AO ADM SS CO2 [Moles/Vol] 29 mmol/L Invalid Interpretation Code 22 - 29 mmol/L AO ADM SS Creatinine [Mass/Vol] 0.99 mg/dL Invalid Interpretation Code 0.70 - 1.30 mg/dL AO ADM SS Electrolyte Balance 10.0 mEq/L Invalid Interpretation Code 4.0 - 15.0 mEq/L AO ADM SS Eosinophil, Absolute 0.3 103/mcL Invalid Interpretation Code 0.0 - 0.4 10^3/mcL AO Workflow SS Eosinophils/100 WBC (Bld) 4.2 % Invalid Interpretation Code 0.0 - 7.0 % AO Workflow SS Erythrocyte distribution width (RBC) [Ratio] 13.9 % Invalid Interpretation Code 11.5 - 14.5 % AO Workflow SS GFR/1.73 sq M.predicted among blacks MDRD (S/P/Bld) [Vol rate/Area] 109 ml/min/1.73sqm Invalid Interpretation Code AO Chemistry S GFR/1.73 sq M.predicted among non-blacks MDRD (S/P/Bld) [Vol rate/Area] 90 ml/min/1.73sqm Invalid Interpretation Code AO Chemistry S Globulin 3.8 G/dL Invalid Interpretation Code AO ADM SS Glucose [Mass/Vol] 183 mg/dL Invalid Interpretation Code 70 - 105 mg/dL AO ADM SS Hematocrit (Bld) [Volume fraction] 43.7 % Invalid Interpretation Code 42.0 - 52.0 % AO Workflow SS Hemoglobin (Bld) [Mass/Vol] 14.9 G/dL Invalid Interpretation Code 14.0 - 18.0 G/dL AO Workflow SS Lymphocyte, Absolute 2.1 103/mcL Invalid Interpretation Code 0.8 - 3.9 10^3/mcL AO Workflow SS Lymphocytes/100 WBC (Bld) 31.6 % Invalid Interpretation Code 10.0 - 50.0 % AO Workflow SS MCH (RBC) [Entitic mass] 35.8 pg Invalid Interpretation Code 27.0 - 31.2 pg AO Workflow SS MCHC 34.1 G/dL Invalid Interpretation Code 31.8 - 35.4 G/dL AO Workflow SS MCV (RBC) [Entitic vol] 105.1 fL Invalid Interpretation Code 80.0 - 94.0 fL AO Workflow SS Monocyte, Absolute 0.6 103/mcL Invalid Interpretation Code 0.2 - 1.0 10^3/mcL AO Workflow SS Monocytes/100 WBC (Bld) 8.5 % Invalid Interpretation Code 1.7 - 13.0 % AO Workflow SS Neutrophil, Absolute 3.7 103/mcL Invalid Interpretation Code 2.9 - 6.2 10^3/mcL AO Workflow SS Neutrophils/100 WBC (Bld) 54.8 % Invalid Interpretation Code 37.0 - 80.0 % AO Workflow SS Platelet mean volume (Bld) [Entitic vol] 7.0 fL Invalid Interpretation Code 7.4 - 10.4 fL AO Workflow SS Platelets (Bld) [#/Vol] 273 103/mcL Invalid Interpretation Code 130 - 400 10^3/mcL AO Workflow SS Potassium [Moles/Vol] 5.0 mmol/L Invalid Interpretation Code 3.5 - 5.1 mmol/L AO ADM SS Protein [Mass/Vol] 7.9 G/dL Invalid Interpretation Code 6.4 - 8.2 G/dL AO ADM SS RBC (Bld) [#/Vol] 4.16 106/mcL Invalid Interpretation Code 4.04 - 6.13 10^6/mcL AO Workflow SS Sodium [Moles/Vol] 142 mmol/L Invalid Interpretation Code 136 - 145 mmol/L AO ADM SS Urea nitrogen [Mass/Vol] 7 mg/dL Invalid Interpretation Code 7 - 18 mg/dL AO ADM SS Urea nitrogen/Creatinine [Mass ratio] 7 ratio Invalid Interpretation Code 7 - 27 ratio AO ADM SS WBC (Bld) [#/Vol] 6.8 103/mcL Invalid Interpretation Code 4.6 - 10.8 10^3/mcL AO Workflow SS LABORATORYOrdered By: SYSTEM SYSTEM on 09-02-2022 Albumin BCP dye [Mass/Vol] 4.1 G/dL Invalid Interpretation Code 3.5 - 5.0 G/dL AO ADM SS Albumin/Globulin [Mass ratio] 1.1 {ratio} Invalid Interpretation Code 1.1 - 2.5 ratio AO ADM SS ALP [Catalytic activity/Vol] 83 U/L Invalid Interpretation Code 40 - 135 U/L AO ADM SS ALT With P-5'-P [Catalytic activity/Vol] 196 U/L Invalid Interpretation Code 16 - 63 U/L AO ADM SS AST With P-5'-P [Catalytic activity/Vol] 127 U/L Invalid Interpretation Code 10 - 40 U/L AO ADM SS Bilirubin [Mass/Vol] 0.8 mg/dL Invalid Interpretation Code 0.2 - 1.0 mg/dL AO ADM SS Calcium [Mass/Vol] 9.7 mg/dL Invalid Interpretation Code 8.4 - 10.2 mg/dL AO ADM SS Chloride [Moles/Vol] 103 mmol/L Invalid Interpretation Code 98 - 107 mmol/L AO ADM SS CO2 [Moles/Vol] 27 mmol/L Invalid Interpretation Code 22 - 29 mmol/L AO ADM SS Creatinine [Mass/Vol] 0.80 mg/dL Invalid Interpretation Code 0.70 - 1.30 mg/dL AO ADM SS Electrolyte Balance 13.0 mEq/L Invalid Interpretation Code 4.0 - 15.0 mEq/L AO ADM SS GFR/1.73 sq M.predicted among blacks MDRD (S/P/Bld) [Vol rate/Area] 140 ml/min/1.73sqm Invalid Interpretation Code AO Chemistry S GFR/1.73 sq M.predicted among non-blacks MDRD (S/P/Bld) [Vol rate/Area] 115 ml/min/1.73sqm Invalid Interpretation Code AO Chemistry S Globulin 3.9 G/dL Invalid Interpretation Code AO ADM SS Glucose [Mass/Vol] 135 mg/dL Invalid Interpretation Code 70 - 105 mg/dL AO ADM SS HbA1c (Bld) [Mass fraction] 6.3 % Invalid Interpretation Code 4.3 - 6.4 % AO ADM SS Potassium [Moles/Vol] 4.1 mmol/L Invalid Interpretation Code 3.5 - 5.1 mmol/L AO ADM SS Protein [Mass/Vol] 8.0 G/dL Invalid Interpretation Code 6.4 - 8.2 G/dL AO ADM SS Sodium [Moles/Vol] 143 mmol/L Invalid Interpretation Code 136 - 145 mmol/L AO ADM SS Urea nitrogen [Mass/Vol] 6 mg/dL Invalid Interpretation Code 7 - 18 mg/dL AO ADM SS Urea nitrogen/Creatinine [Mass ratio] 8 ratio Invalid Interpretation Code 7 - 27 ratio AO ADM SS LABORATORYOrdered By: Tessa Menjivar on 09-02-2022 Cholesterol [Mass/Vol] 185 mg/dL Invalid Interpretation Code 0 - 200 mg/dL AO ADM SS Cholesterol in HDL [Mass/Vol] 74 mg/dL Invalid Interpretation Code 40 - 60 mg/dL AO ADM SS Cholesterol in LDL [Mass/Vol] 83 mg/dL Invalid Interpretation Code 0 - 130 mg/dL AO ADM SS Triglyceride [Mass/Vol] 140 mg/dL Invalid Interpretation Code 0 - 150 mg/dL AO ADM SS LABORATORYOrdered By: SYSTEM SYSTEM on 07-19-2022 Albumin BCP dye [Mass/Vol] 4.2 G/dL Invalid Interpretation Code 3.5 - 5.0 G/dL AO ADM SS Albumin/Globulin [Mass ratio] 1.1 {ratio} Invalid Interpretation Code 1.1 - 2.5 ratio AO ADM SS ALP [Catalytic activity/Vol] 89 U/L Invalid Interpretation Code 40 - 135 U/L AO ADM SS ALT With P-5'-P [Catalytic activity/Vol] 337 U/L Invalid Interpretation Code 16 - 63 U/L AO ADM SS AST With P-5'-P [Catalytic activity/Vol] 178 U/L Invalid Interpretation Code 10 - 40 U/L AO ADM SS Bilirubin [Mass/Vol] 0.6 mg/dL Invalid Interpretation Code 0.2 - 1.0 mg/dL AO ADM SS Calcium [Mass/Vol] 9.5 mg/dL Invalid Interpretation Code 8.4 - 10.2 mg/dL AO ADM SS Chloride [Moles/Vol] 103 mmol/L Invalid Interpretation Code 98 - 107 mmol/L AO ADM SS CO2 [Moles/Vol] 31 mmol/L Invalid Interpretation Code 22 - 29 mmol/L AO ADM SS Creatinine [Mass/Vol] 0.86 mg/dL Invalid Interpretation Code 0.70 - 1.30 mg/dL AO ADM SS Electrolyte Balance 9.0 mEq/L Invalid Interpretation Code 4.0 - 15.0 mEq/L AO ADM SS GFR 128 ml/min/1.73sqm Invalid Interpretation Code AO Chemistry S GFR Non- 106 ml/min/1.73sqm Inva lid Interpretation Code AO Chemistry S Globulin 3.9 G/dL Invalid Interpretation Code AO ADM SS Glucose [Mass/Vol] 156 mg/dL Invalid Interpretation Code 70 - 105 mg/dL AO ADM SS Potassium [Moles/Vol] 4.8 mmol/L Invalid Interpretation Code 3.5 - 5.1 mmol/L AO ADM SS Protein [Mass/Vol] 8.1 G/dL Invalid Interpretation Code 6.4 - 8.2 G/dL AO ADM SS Sodium [Moles/Vol] 143 mmol/L Invalid Interpretation Code 136 - 145 mmol/L AO ADM SS Urea nitrogen [Mass/Vol] 6 mg/dL Invalid Interpretation Code 7 - 18 mg/dL AO ADM SS Urea nitrogen/Creatinine [Mass ratio] 7 ratio Invalid Interpretation Code 7 - 27 ratio AO ADM SS LABORATORYOrdered By: Sofia Chavez on 07-19-2022 Basophil, Absolute 0.0 103/mcL Invalid Interpretation Code 0.0 - 0.2 10^3/mcL AO Workflow SS Basophils/100 WBC (Bld) 0.5 % Invalid Interpretation Code 0.0 - 2.5 % AO Workflow SS Eosinophil, Absolute 0.2 103/mcL Invalid Interpretation Code 0.0 - 0.4 10^3/mcL AO Workflow SS Eosinophils/100 WBC (Bld) 4.5 % Invalid Interpretation Code 0.0 - 7.0 % AO Workflow SS Erythrocyte distribution width (RBC) [Ratio] 13.1 % Invalid Interpretation Code 11.5 - 14.5 % AO Workflow SS Hematocrit (Bld) [Volume fraction] 43.5 % Invalid Interpretation Code 42.0 - 52.0 % AO Workflow SS Hemoglobin (Bld) [Mass/Vol] 14.8 G/dL Invalid Interpretation Code 14.0 - 18.0 G/dL AO Workflow SS Lymphocyte, Absolute 1.7 103/mcL Invalid Interpretation Code 0.8 - 3.9 10^3/mcL AO Workflow SS Lymphocytes/100 WBC (Bld) 35.8 % Invalid Interpretation Code 10.0 - 50.0 % AO Workflow SS MCH (RBC) [Entitic mass] 34.7 pg Invalid Interpretation Code 27.0 - 31.2 pg AO Workflow SS MCHC 34.0 G/dL Invalid Interpretation Code 31.8 - 35.4 G/dL AO Workflow SS MCV (RBC) [Entitic vol] 102.0 fL Invalid Interpretation Code 80.0 - 94.0 fL AO Workflow SS Monocyte, Absolute 0.6 103/mcL Invalid Interpretation Code 0.2 - 1.0 10^3/mcL AO Workflow SS Monocytes/100 WBC (Bld) 12.1 % Invalid Interpretation Code 1.7 - 13.0 % AO Workflow SS Neutrophil, Absolute 2.2 103/mcL Invalid Interpretation Code 2.9 - 6.2 10^3/mcL AO Workflow SS Neutrophils/100 WBC (Bld) 47.1 % Invalid Interpretation Code 37.0 - 80.0 % AO Workflow SS Platelet mean volume (Bld) [Entitic vol] 6.9 fL Invalid Interpretation Code 7.4 - 10.4 fL AO Workflow SS Platelets (Bld) [#/Vol] 203 103/mcL Invalid Interpretation Code 130 - 400 10^3/mcL AO Workflow SS RBC (Bld) [#/Vol] 4.26 106/mcL Invalid Interpretation Code 4.04 - 6.13 10^6/mcL AO Workflow SS WBC (Bld) [#/Vol] 4.7 103/mcL Invalid Interpretation Code 4.6 - 10.8 10^3/mcL AO Workflow SS LABORATORYOrdered By: SYSTEM SYSTEM on 06-03-2022 Albumin BCP dye [Mass/Vol] 4.0 G/dL Invalid Interpretation Code 3.5 - 5.0 G/dL AO ADM SS Albumin/Globulin [Mass ratio] 1.0 {ratio} Invalid Interpretation Code 1.1 - 2.5 ratio AO ADM SS ALP [Catalytic activity/Vol] 93 U/L Invalid Interpretation Code 40 - 135 U/L AO ADM SS ALT With P-5'-P [Catalytic activity/Vol] 286 U/L Invalid Interpretation Code 16 - 63 U/L AO ADM SS AST With P-5'-P [Catalytic activity/Vol] 132 U/L Invalid Interpretation Code 10 - 40 U/L AO ADM SS Bilirubin [Mass/Vol] 0.4 mg/dL Invalid Interpretation Code 0.2 - 1.0 mg/dL AO ADM SS Calcium [Mass/Vol] 9.7 mg/dL Invalid Interpretation Code 8.4 - 10.2 mg/dL AO ADM SS Chloride [Moles/Vol] 104 mmol/L Invalid Interpretation Code 98 - 107 mmol/L AO ADM SS CO2 [Moles/Vol] 29 mmol/L Invalid Interpretation Code 22 - 29 mmol/L AO ADM SS Creatinine [Mass/Vol] 0.89 mg/dL Invalid Interpretation Code 0.70 - 1.30 mg/dL AO ADM SS Electrolyte Balance 10.0 mEq/L Invalid Interpretation Code 4.0 - 15.0 mEq/L AO ADM SS Free T4 [Mass/Vol] 0.98 ng/dL Invalid Interpretation Code 0.76 - 1.46 ng/dL AO ADM SS GFR 123 ml/min/1.73sqm Invalid Interpretation Code AO Chemistry S GFR Non- 102 ml/min/1.73sqm Inva lid Interpretation Code AO Chemistry S Globulin 4.2 G/dL Invalid Interpretation Code AO ADM SS Glucose [Mass/Vol] 160 mg/dL Invalid Interpretation Code 70 - 105 mg/dL AO ADM SS HbA1c (Bld) [Mass fraction] 7.5 % Invalid Interpretation Code 4.3 - 6.4 % AO ADM SS Potassium [Moles/Vol] 4.3 mmol/L Invalid Interpretation Code 3.5 - 5.1 mmol/L AO ADM SS Protein [Mass/Vol] 8.2 G/dL Invalid Interpretation Code 6.4 - 8.2 G/dL AO ADM SS Sodium [Moles/Vol] 143 mmol/L Invalid Interpretation Code 136 - 145 mmol/L AO ADM SS TSH Qn 2.80 m[IU]/L Invalid Interpretation Code 0.36 - 3.74 mcIU/mL AO ADM SS Urea nitrogen [Mass/Vol] 4 mg/dL Invalid Interpretation Code 7 - 18 mg/dL AO ADM SS Urea nitrogen/Creatinine [Mass ratio] 4 ratio Invalid Interpretation Code 7 - 27 ratio AO ADM SS LABORATORYOrdered By: Tessa Menjivar on 06-03-2022 Cholesterol [Mass/Vol] 195 mg/dL Invalid Interpretation Code 0 - 200 mg/dL AO ADM SS Cholesterol in HDL [Mass/Vol] 74 mg/dL Invalid Interpretation Code 40 - 60 mg/dL AO ADM SS Cholesterol in LDL [Mass/Vol] 98 mg/dL Invalid Interpretation Code 0 - 130 mg/dL AO ADM SS Triglyceride [Mass/Vol] 114 mg/dL Invalid Interpretation Code 0 - 150 mg/dL AO ADM SS LABORATORYOrdered By: Amelia Sawant on 03-26-2022 Albumin BCP dye [Mass/Vol] 4.0 G/dL Invalid Interpretation Code 3.5 - 5.0 G/dL AO ADM SS Albumin/Globulin [Mass ratio] 1.1 {ratio} Invalid Interpretation Code 1.1 - 2.5 ratio AO ADM SS ALP [Catalytic activity/Vol] 80 U/L Invalid Interpretation Code 40 - 135 U/L AO ADM SS ALT With P-5'-P [Catalytic activity/Vol] 295 U/L Invalid Interpretation Code 16 - 63 U/L AO ADM SS AST With P-5'-P [Catalytic activity/Vol] 188 U/L Invalid Interpretation Code 10 - 40 U/L AO ADM SS Bilirubin [Mass/Vol] 0.7 mg/dL Invalid Interpretation Code 0.2 - 1.0 mg/dL AO ADM SS Calcium [Mass/Vol] 9.5 mg/dL Invalid Interpretation Code 8.4 - 10.2 mg/dL AO ADM SS Chloride [Moles/Vol] 100 mmol/L Invalid Interpretation Code 98 - 107 mmol/L AO ADM SS CO2 [Moles/Vol] 27 mmol/L Invalid Interpretation Code 22 - 29 mmol/L AO ADM SS Creatinine [Mass/Vol] 0.90 mg/dL Invalid Interpretation Code 0.70 - 1.30 mg/dL AO ADM SS Electrolyte Balance 11.0 mEq/L Invalid Interpretation Code 4.0 - 15.0 mEq/L AO ADM SS Globulin 3.6 G/dL Invalid Interpretation Code AO ADM SS Glucose [Mass/Vol] 160 mg/dL Invalid Interpretation Code 70 - 105 mg/dL AO ADM SS Potassium [Moles/Vol] 4.4 mmol/L Invalid Interpretation Code 3.5 - 5.1 mmol/L AO ADM SS Protein [Mass/Vol] 7.6 G/dL Invalid Interpretation Code 6.4 - 8.2 G/dL AO ADM SS Sodium [Moles/Vol] 138 mmol/L Invalid Interpretation Code 136 - 145 mmol/L AO ADM SS Urea nitrogen [Mass/Vol] 6 mg/dL Invalid Interpretation Code 7 - 18 mg/dL AO ADM SS Urea nitrogen/Creatinine [Mass ratio] 7 ratio Invalid Interpretation Code 7 - 27 ratio AO ADM SS LABORATORYOrdered By: Rebecca Yanes on 03-26-2022 Basophil, Absolute 0.1 103/mcL Invalid Interpretation Code 0.0 - 0.2 10^3/mcL AO Hematology S Basophils/100 WBC (Bld) 1.3 % Invalid Interpretation Code 0.0 - 2.5 % AO Hematology S Eosinophil, Absolute 0.2 103/mcL Invalid Interpretation Code 0.0 - 0.4 10^3/mcL AO Hematology S Eosinophils/100 WBC (Bld) 5.0 % Invalid Interpretation Code 0.0 - 7.0 % AO Hematology S Erythrocyte distribution width (RBC) [Ratio] 15.2 % Invalid Interpretation Code 11.5 - 14.5 % AO Hematology S Hematocrit (Bld) [Volume fraction] 39.1 % Invalid Interpretation Code 42.0 - 52.0 % AO Hematology S Hemoglobin (Bld) [Mass/Vol] 13.6 G/dL Invalid Interpretation Code 14.0 - 18.0 G/dL AO Hematology S Lymphocyte, Absolute 1.6 103/mcL Invalid Interpretation Code 0.8 - 3.9 10^3/mcL AO Hematology S Lymphocytes/100 WBC (Bld) 34.4 % Invalid Interpretation Code 10.0 - 50.0 % AO Hematology S MCH (RBC) [Entitic mass] 39.5 pg Invalid Interpretation Code 27.0 - 31.2 pg AO Hematology S MCHC 34.6 G/dL Invalid Interpretation Code 31.8 - 35.4 G/dL AO Hematology S MCV (RBC) [Entitic vol] 114.0 fL Invalid Interpretation Code 80.0 - 94.0 fL AO Hematology S Monocyte, Absolute 0.4 103/mcL Invalid Interpretation Code 0.2 - 1.0 10^3/mcL AO Hematology S Monocytes/100 WBC (Bld) 8.9 % Invalid Interpretation Code 1.7 - 13.0 % AO Hematology S Neutrophil, Absolute 2.3 103/mcL Invalid Interpretation Code 2.9 - 6.2 10^3/mcL AO Hematology S Neutrophils/100 WBC (Bld) 50.4 % Invalid Interpretation Code 37.0 - 80.0 % AO Hematology S Platelet mean volume (Bld) [Entitic vol] 6.9 fL Invalid Interpretation Code 7.4 - 10.4 fL AO Hematology S Platelets (Bld) [#/Vol] 195 103/mcL Invalid Interpretation Code 130 - 400 10^3/mcL AO Hematology S RBC (Bld) [#/Vol] 3.43 106/mcL Invalid Interpretation Code 4.04 - 6.13 10^6/mcL AO Hematology S WBC (Bld) [#/Vol] 4.6 103/mcL Invalid Interpretation Code 4.6 - 10.8 10^3/mcL AO Hematology S LABORATORYOrdered By: SYSTEM SYSTEM on 03-26-2022 GFR 122 ml/min/1.73sqm Invalid Interpretation Code AO Chemistry S GFR Non- 100 ml/min/1.73sqm Inva lid Interpretation Code AO Chemistry S LABORATORYOrdered By: Tessa Menjivar on 03-05-2022 Albumin BCP dye [Mass/Vol] 4.2 G/dL Invalid Interpretation Code 3.5 - 5.0 G/dL AO ADM SS Albumin/Globulin [Mass ratio] 1.0 {ratio} Invalid Interpretation Code 1.1 - 2.5 ratio AO ADM SS ALP [Catalytic activity/Vol] 90 U/L Invalid Interpretation Code 40 - 135 U/L AO ADM SS ALT With P-5'-P [Catalytic activity/Vol] 231 U/L Invalid Interpretation Code 16 - 63 U/L AO ADM SS AST With P-5'-P [Catalytic activity/Vol] 152 U/L Invalid Interpretation Code 10 - 40 U/L AO ADM SS Bilirubin [Mass/Vol] 0.7 mg/dL Invalid Interpretation Code 0.2 - 1.0 mg/dL AO ADM SS Calcium [Mass/Vol] 9.5 mg/dL Invalid Interpretation Code 8.4 - 10.2 mg/dL AO ADM SS Chloride [Moles/Vol] 102 mmol/L Invalid Interpretation Code 98 - 107 mmol/L AO ADM SS Cholesterol [Mass/Vol] 209 mg/dL Invalid Interpretation Code 0 - 200 mg/dL AO ADM SS Cholesterol in HDL [Mass/Vol] 56 mg/dL Invalid Interpretation Code 40 - 60 mg/dL AO ADM SS Cholesterol in LDL [Mass/Vol] 111 mg/dL Invalid Interpretation Code 0 - 130 mg/dL AO ADM SS CO2 [Moles/Vol] 28 mmol/L Invalid Interpretation Code 22 - 29 mmol/L AO ADM SS Creatinine [Mass/Vol] 0.82 mg/dL Invalid Interpretation Code 0.70 - 1.30 mg/dL AO ADM SS Electrolyte Balance 9.0 mEq/L Invalid Interpretation Code 4.0 - 15.0 mEq/L AO ADM SS Globulin 4.1 G/dL Invalid Interpretation Code AO ADM SS Glucose [Mass/Vol] 200 mg/dL Invalid Interpretation Code 70 - 105 mg/dL AO ADM SS HbA1c (Bld) [Mass fraction] 6.9 % Invalid Interpretation Code 4.3 - 6.4 % AO ADM SS Potassium [Moles/Vol] 4.6 mmol/L Invalid Interpretation Code 3.5 - 5.1 mmol/L AO ADM SS Protein [Mass/Vol] 8.3 G/dL Invalid Interpretation Code 6.4 - 8.2 G/dL AO ADM SS Sodium [Moles/Vol] 139 mmol/L Invalid Interpretation Code 136 - 145 mmol/L AO ADM SS Triglyceride [Mass/Vol] 210 mg/dL Invalid Interpretation Code 0 - 150 mg/dL AO ADM SS Urea nitrogen [Mass/Vol] 8 mg/dL Invalid Interpretation Code 7 - 18 mg/dL AO ADM SS Urea nitrogen/Creatinine [Mass ratio] 10 ratio Invalid Interpretation Code 7 - 27 ratio AO ADM SS LABORATORYOrdered By: SYSTEM SYSTEM on 03-05-2022 GFR 136 ml/min/1.73sqm Invalid Interpretation Code AO Chemistry S GFR Non- 112 ml/min/1.73sqm Inva lid Interpretation Code AO Chemistry S LABORATORYOrdered By: Amelia Vicente on 12-04-2021 Albumin BCP dye [Mass/Vol] 4.1 G/dL Invalid Interpretation Code 3.5 - 5.0 G/dL AO ADM SS Albumin/Globulin [Mass ratio] 1.1 {ratio} Invalid Interpretation Code 1.1 - 2.5 ratio AO ADM SS ALP [Catalytic activity/Vol] 89 U/L Invalid Interpretation Code 40 - 135 U/L AO ADM SS ALT With P-5'-P [Catalytic activity/Vol] 351 U/L Invalid Interpretation Code 16 - 63 U/L AO ADM SS AST With P-5'-P [Catalytic activity/Vol] 217 U/L Invalid Interpretation Code 10 - 40 U/L AO ADM SS Bilirubin [Mass/Vol] 1.0 mg/dL Invalid Interpretation Code 0.2 - 1.0 mg/dL AO ADM SS Calcium [Mass/Vol] 9.8 mg/dL Invalid Interpretation Code 8.4 - 10.2 mg/dL AO ADM SS Chloride [Moles/Vol] 97 mmol/L Invalid Interpretation Code 98 - 107 mmol/L AO ADM SS Cholesterol [Mass/Vol] 219 mg/dL Invalid Interpretation Code 0 - 200 mg/dL AO ADM SS Cholesterol in HDL [Mass/Vol] 56 mg/dL Invalid Interpretation Code 40 - 60 mg/dL AO ADM SS Cholesterol in LDL [Mass/Vol] 124 mg/dL Invalid Interpretation Code 0 - 130 mg/dL AO ADM SS CO2 [Moles/Vol] 27 mmol/L Invalid Interpretation Code 22 - 29 mmol/L AO ADM SS Creatinine [Mass/Vol] 1.21 mg/dL Invalid Interpretation Code 0.70 - 1.30 mg/dL AO ADM SS Electrolyte Balance 11.0 mEq/L Invalid Interpretation Code 4.0 - 15.0 mEq/L AO ADM SS Globulin 3.8 G/dL Invalid Interpretation Code AO ADM SS Glucose [Mass/Vol] 189 mg/dL Invalid Interpretation Code 70 - 105 mg/dL AO ADM SS HbA1c (Bld) [Mass fraction] 6.6 % Invalid Interpretation Code 4.3 - 6.4 % AO ADM SS Potassium [Moles/Vol] 5.4 mmol/L Invalid Interpretation Code 3.5 - 5.1 mmol/L AO ADM SS Protein [Mass/Vol] 7.9 G/dL Invalid Interpretation Code 6.4 - 8.2 G/dL AO ADM SS Sodium [Moles/Vol] 135 mmol/L Invalid Interpretation Code 136 - 145 mmol/L AO ADM SS Triglyceride [Mass/Vol] 196 mg/dL Invalid Interpretation Code 0 - 150 mg/dL AO ADM SS TSH Qn 2.88 m[IU]/L Invalid Interpretation Code 0.36 - 3.74 mcIU/mL AO ADM SS Urea nitrogen [Mass/Vol] 10 mg/dL Invalid Interpretation Code 7 - 18 mg/dL AO ADM SS Urea nitrogen/Creatinine [Mass ratio] 8 ratio Invalid Interpretation Code 7 - 27 ratio AO ADM SS LABORATORYOrdered By: SYSTEM SYSTEM on 12-04-2021 GFR 87 ml/min/1.73sqm Invalid Interpretation Code AO Chemistry S GFR Non- 71 ml/min/1.73sqm Inval id Interpretation Code AO Chemistry S LABORATORYOrdered By: Amelia Sawant on 07-30-2021 Albumin BCP dye [Mass/Vol] 4.2 G/dL Invalid Interpretation Code 3.5 - 5.0 G/dL AO ADM SS Albumin/Globulin [Mass ratio] 1.0 {ratio} Invalid Interpretation Code 1.1 - 2.5 ratio AO ADM SS ALP [Catalytic activity/Vol] 98 U/L Invalid Interpretation Code 40 - 135 U/L AO ADM SS ALT With P-5'-P [Catalytic activity/Vol] 385 U/L Invalid Interpretation Code 16 - 63 U/L AO ADM SS AST With P-5'-P [Catalytic activity/Vol] 234 U/L Invalid Interpretation Code 10 - 40 U/L AO ADM SS Bilirubin [Mass/Vol] 1.0 mg/dL Invalid Interpretation Code 0.2 - 1.0 mg/dL AO ADM SS Calcium [Mass/Vol] 10.1 mg/dL Invalid Interpretation Code 8.4 - 10.2 mg/dL AO ADM SS Chloride [Moles/Vol] 100 mmol/L Invalid Interpretation Code 98 - 107 mmol/L AO ADM SS Cholesterol [Mass/Vol] 206 mg/dL Invalid Interpretation Code 0 - 200 mg/dL AO ADM SS Cholesterol in HDL [Mass/Vol] 68 mg/dL Invalid Interpretation Code 40 - 60 mg/dL AO ADM SS Cholesterol in LDL [Mass/Vol] 117 mg/dL Invalid Interpretation Code 0 - 130 mg/dL AO ADM SS CO2 [Moles/Vol] 29 mmol/L Invalid Interpretation Code 22 - 29 mmol/L AO ADM SS Creatinine [Mass/Vol] 0.95 mg/dL Invalid Interpretation Code 0.70 - 1.30 mg/dL AO ADM SS Electrolyte Balance 10.0 mEq/L Invalid Interpretation Code 4.0 - 15.0 mEq/L AO ADM SS Globulin 4.4 G/dL Invalid Interpretation Code AO ADM SS Glucose [Mass/Vol] 154 mg/dL Invalid Interpretation Code 70 - 105 mg/dL AO ADM SS HbA1c (Bld) [Mass fraction] 7.0 % Invalid Interpretation Code 4.3 - 6.4 % AO ADM SS Potassium [Moles/Vol] 4.5 mmol/L Invalid Interpretation Code 3.5 - 5.1 mmol/L AO ADM SS Protein [Mass/Vol] 8.6 G/dL Invalid Interpretation Code 6.4 - 8.2 G/dL AO ADM SS Sodium [Moles/Vol] 139 mmol/L Invalid Interpretation Code 136 - 145 mmol/L AO ADM SS Triglyceride [Mass/Vol] 104 mg/dL Invalid Interpretation Code 0 - 150 mg/dL AO ADM SS Urea nitrogen [Mass/Vol] 8 mg/dL Invalid Interpretation Code 7 - 18 mg/dL AO ADM SS Urea nitrogen/Creatinine [Mass ratio] 8 ratio Invalid Interpretation Code 7 - 27 ratio AO ADM SS LABORATORYOrdered By: SYSTEM SYSTEM on 07-30-2021 GFR 115 ml/min/1.73sqm Invalid Interpretation Code AO Chemistry S GFR Non- 95 ml/min/1.73sqm Inval id Interpretation Code AO Chemistry S LABORATORYOrdered By: Amelia Vicente on 07-02-2021 Albumin BCP dye [Mass/Vol] 3.8 G/dL Invalid Interpretation Code 3.5 - 5.0 G/dL AO ADM SS Albumin/Globulin [Mass ratio] 1.0 {ratio} Invalid Interpretation Code 1.1 - 2.5 ratio AO ADM SS ALP [Catalytic activity/Vol] 100 U/L Invalid Interpretation Code 40 - 135 U/L AO ADM SS ALT With P-5'-P [Catalytic activity/Vol] 176 U/L Invalid Interpretation Code 16 - 63 U/L AO ADM SS AST With P-5'-P [Catalytic activity/Vol] 95 U/L Invalid Interpretation Code 10 - 40 U/L AO ADM SS Bilirubin [Mass/Vol] 0.5 mg/dL Invalid Interpretation Code 0.2 - 1.0 mg/dL AO ADM SS Calcium [Mass/Vol] 9.3 mg/dL Invalid Interpretation Code 8.4 - 10.2 mg/dL AO ADM SS Chloride [Moles/Vol] 104 mmol/L Invalid Interpretation Code 98 - 107 mmol/L AO ADM SS CO2 [Moles/Vol] 29 mmol/L Invalid Interpretation Code 22 - 29 mmol/L AO ADM SS Creatinine [Mass/Vol] 0.83 mg/dL Invalid Interpretation Code 0.70 - 1.30 mg/dL AO ADM SS Electrolyte Balance 10.0 mEq/L Invalid Interpretation Code 4.0 - 15.0 mEq/L AO ADM SS Globulin 3.9 G/dL Invalid Interpretation Code AO ADM SS Glucose [Mass/Vol] 164 mg/dL Invalid Interpretation Code 70 - 105 mg/dL AO ADM SS Potassium [Moles/Vol] 4.5 mmol/L Invalid Interpretation Code 3.5 - 5.1 mmol/L AO ADM SS Protein [Mass/Vol] 7.7 G/dL Invalid Interpretation Code 6.4 - 8.2 G/dL AO ADM SS Sodium [Moles/Vol] 143 mmol/L Invalid Interpretation Code 136 - 145 mmol/L AO ADM SS Urea nitrogen [Mass/Vol] 6 mg/dL Invalid Interpretation Code 7 - 18 mg/dL AO ADM SS Urea nitrogen/Creatinine [Mass ratio] 7 ratio Invalid Interpretation Code 7 - 27 ratio AO ADM SS LABORATORYOrdered By: SYSTEM SYSTEM on 07-02-2021 GFR 135 ml/min/1.73sqm Invalid Interpretation Code AO Chemistry S GFR Non- 111 ml/min/1.73sqm Inva lid Interpretation Code AO Chemistry S LABORATORYOrdered By: Amelia Vicente on 06-29-2021 Basophil, Absolute 0.10 103/mcL Invalid Interpretation Code 0.00 - 0.19 10^3/mcL AO Auto Heme SS Basophils/100 WBC (Bld) 1.3 % Invalid Interpretation Code 0.0 - 2.5 % AO Auto Heme SS Eosinophil, Absolute 0.20 103/mcL Invalid Interpretation Code 0.00 - 0.40 10^3/mcL AO Auto Heme SS Eosinophils/100 WBC (Bld) 3.9 % Invalid Interpretation Code 0.0 - 7.0 % AO Auto Heme SS Erythrocyte distribution width (RBC) [Ratio] 14.7 % Invalid Interpretation Code 11.5 - 14.5 % AO Auto Heme SS Hematocrit (Bld) [Volume fraction] 40.0 % Invalid Interpretation Code 42.0 - 52.0 % AO Auto Heme SS Hemoglobin (Bld) [Mass/Vol] 14.2 G/dL Invalid Interpretation Code 14.0 - 18.0 G/dL AO Auto Heme SS Lymphocyte, Absolute 1.40 103/mcL Invalid Interpretation Code 0.77 - 3.85 10^3/mcL AO Auto Heme SS Lymphocytes/100 WBC (Bld) 22.5 % Invalid Interpretation Code 10.0 - 50.0 % AO Auto Heme SS MCH (RBC) [Entitic mass] 36.5 pg Invalid Interpretation Code 27.0 - 31.2 pg AO Auto Heme SS MCHC (RBC) [Mass/Vol] 35.5 G/dL Invalid Interpretation Code 31.8 - 35.4 G/dL AO Auto Heme SS MCV (RBC) [Entitic vol] 103.0 fL Invalid Interpretation Code 80.0 - 94.0 fL AO Auto Heme SS Monocyte, Absolute 0.60 103/mcL Invalid Interpretation Code 0.15 - 1.00 10^3/mcL AO Auto Heme SS Monocytes/100 WBC (Bld) 9.9 % Invalid Interpretation Code 1.7 - 13.0 % AO Auto Heme SS Neutrophil, Absolute 3.90 103/mcL Invalid Interpretation Code 2.85 - 6.16 10^3/mcL AO Auto Heme SS Neutrophils/100 WBC (Bld) 62.4 % Invalid Interpretation Code 37.0 - 80.0 % AO Auto Heme SS Platelet mean volume (Bld) [Entitic vol] 6.6 fL Invalid Interpretation Code 7.4 - 10.4 fL AO Auto Heme SS Platelets (Bld) [#/Vol] 327 103/mcL Invalid Interpretation Code 130 - 400 10^3/mcL AO Auto Heme SS RBC (Bld) [#/Vol] 3.88 106/mcL Invalid Interpretation Code 4.04 - 6.13 10^6/mcL AO Auto Heme SS WBC (Bld) [#/Vol] 6.20 103/mcL Invalid Interpretation Code 4.60 - 10.80 10^3/mcL AO Auto Heme SS Encounters Encounter Date Encounter Type Care Provider Facility Start: 02-06-2025 End: 02-06-2025 ambulatory Ivonne Broussard LEASING CONSULTANT-C Work Phone: -Laboratory Specimen Start: 02-06-2025 End: 02-06-[address] Macario Mccurdy MD -Laboratory Specimen Work Phone: Start: 02-06-2025 End: 02-06-2025 ambulatory Ivonne Broussard LEASING CONSULTANT Facility:[facility] Start: 01-24-2025 End: 01-24-[address] FLY DENG MD Facility:[facility] Start: 01-24-2025 End: 01-24-[address] FLY DENG MD [facility] Start: 12-27-2024 End: 12-27-[address] MACARIO MCCURDY MD Facility:[facility] Start: 12-27-2024 End: 12-27-[address] MACARIO MCCURDY MD [facility] Start: 09-20-2024 End: 09-20-[address] MACARIO MCCURDY MD Facility:[facility] Start: 09-20-2024 End: 09-20-[address] MACARIO MCCURDY MD [facility] Start: 08-28-2024 End: 09-01-2024 ambulatory IVONNE BROUSSARD Facility[facility] Start: 08-24-2024 End: 08-24-2024 ambulatory IVONNE BROUSSARD Facility:[facility] Start: 07-05-2024 End: 07-05-[address] MACARIO MCCURDY MD Facility:[facility] Start: 07-05-2024 End: 07-05-[address] MACARIO MCCURDY MD [facility] Start: 06-20-2024 End: 06-20-[address] MACARIO MCCURDY MD Facility:[facility] Start: 06-20-2024 End: 06-20-[address] FLY DENG MD [facility] Start: 09-23-2023 End: 09-24-[address] MACARIO MCCURDY MD Facility:[facility] Start: 09-23-2023 End: 09-23-[address] MACARIO MCCURDY MD [facility] Start: 09-12-2023 End: 09-13-[address] FLY DENG MD Facility:[facility] Start: 09-12-2023 End: 09-12-[address] FLY DENG MD [facility] Start: 08-05-2023 End: 08-06-2023 ambulatory IVONNE BROUSSARD [employer]ENCH ASSEMBLER ELECTRICAL-LABEL MAKER Facility:[facility] Start: 08-05-2023 End: 08-05-2023 Patient encounter procedure IVONNE HAASCONSUELO [employer]ENCH ASSEMBLER ELECTRICAL-LABEL MAKER [facility] Start: 07-27-2023 End: 08-01-2023 ambulatory IVONNE BROUSSARD [employer]ENCH ASSEMBLER ELECTRICAL-LABEL MAKER Facility:[facility] Start: 07-27-2023 End: 07-31-2023 Outreach Lab IVONNE BROUSSARD [employer]ENCH ASSEMBLER ELECTRICAL-LABEL MAKER [facility] Start: 07-25-2023 End: 07-26-[address] CHELSEY MCGOWAN DO Facility:[facility] Start: 06-03-2023 End: 06-04-[address] MACARIO MCCURDY MD Facility:[facility] Start: 06-03-2023 End: 06-03-[address] MACARIO MCCURDY MD [facility] Start: 06-01-2023 End: 06-02-[address] MACARIO MCCURDY MD Facility:[facility] Start: 06-01-2023 End: 06-01-[address] MACARIO MCCURDY MD [facility] Start: 02-15-2023 End: 02-16-[address] FLY DENG MD Facility:[facility] Start: 02-15-2023 End: 02-15-[address] FLY DENG MD [facility] Start: 11-19-2022 End: 11-20-[address] MACARIO MCCURDY MD Facility:[facility] Start: 11-19-2022 End: 11-19-[address] MACARIO MCCURDY MD [facility] Start: 11-01-2022 End: 11-01-2022 ambulatory [facility] Work Phone: Start: 11-01-2022 End: 11-01-2022 Patient encounter procedure [facility] Start: 09-02-2022 End: 09-02-2022 Patient encounter procedure IVONNE BROUSSARD [employer]ENCH ASSEMBLER ELECTRICAL-LABEL MAKER [facility] Start: 07-19-2022 End: 07-19-[address] MACARIO MCCURDY MD [facility] Start: 06-03-2022 End: 06-03-2022 Patient encounter procedure IVONNE BROUSSARD BENCH ASSEMBLER ELECTRICAL-LABEL MAKER [facility] Start: 03-26-2022 End: 03-26-[address] MACARIO MCCURDY MD [facility] Start: 03-05-2022 End: 03-05-2022 Patient encounter procedure IVONNE BROUSSARD BENCH ASSEMBLER ELECTRICAL-LABEL MAKER [facility] Start: 12-04-2021 End: 12-04-[address] MERLIN VELIZ DO [facility] Start: 07-30-2021 End: 07-30-2021 Patient encounter procedure IVONNE BROUSSARD BENCH ASSEMBLER ELECTRICAL-LABEL MAKER [facility] Start: 07-02-2021 End: 07-02-[address] MACARIO MCCURDY MD [facility] Start: 06-29-2021 End: 06-29-[address] MACARIO MCCURDY MD [facility] Start: 08-31-2020 Patient encounter procedure Marsha Reyes DO Work Phone: [facility] Start: 08-31-2020 Progress Note Marsha churchill DO Work Phone: [facility] Procedures Date Procedure Procedure Detail Performing Clinician Start: 02-06-2025 Anaerobic microbial culture Iovnne Broussard LEASING CONSULTANT-C Work Phone: Start: 02-06-2025 Gram stain microscopy L ankush Broussard LEASING CONSULTANT-C Work Phone: Start: 02-06-2025 End: 02-06-2025 Microbial culture, body fluid Ivonne Broussard LEASING CONSULTANT-C Work Phone: Start: 02-28-[address] MACARIO MCCURDY MD Plan of Treatment Date Care Activity Detail Author Start: 11-01-2022 Liver stiffness by US.transient elastography [facility] Start: 11-01-2022 Ultrasound elastography of liver ABD Limited w/ Elastography [facility] Immunizations Immunization Date Immunization Notes Care Provider [facility] 02-29-2024 influenza, injectabl e, quadrivalent, contains preservative; Translations: [Fluarix PF Prefilled Syringe ] DR FLY DENG MD [facility] 04-15-2023 influenza, injectabl e, quadrivalent, contains preservative; Translations: [Fluarix PF Quadrivalent ] DR MACARIO MCCURDY MD [facility] 04-02-2020 influenza, injectabl e, quadrivalent, preservative free; Translations: [Fluarix PF Quadrivalent ] DR MACARIO MCCURDY MD [facility] 03-10-2015 influenza virus vaccine, unspecified formulation DR MERLIN VELIZ DO [facility] 04-29-2014 influenza virus vaccine, unspecified formulation DR MERLIN VELIZ DO [facility] 03-06-2013 influenza virus vaccine, unspecified formulation DR MERLIN VELIZ DO [facility] Payers Date Payer Category Payer Self-pay [id number] 2024 Private Health Insurance [id number] 2024 Unknown [id number] 2023 Unknown [id number] 2005 Unknown [id number] 2005 Unknown [id number] 1993 Unknown [id number] 2.16.8 [id number] 1993 Unknown [id number] 2.16.8 40.1.930183.3.579.2. 1993 Unknown [id number] 2.16.8 40.1.652161.3.579.2. 1993 Unknown [id number] 2.16.8 40.1.337152.3.579.2. 1993 Unknown [id number] 2.16.8 40.1.435092.3.579.2. 1993 Unknown [id number] 2.16.8 40.1.337199.3.579.2. 1993 Unknown [id number] 2.16.8 40.1.652040.3.579.2. 1993 Unknown [id number] 2.16.8 40.1.467088.3.579.2. 1993 Unknown [id number] 2.16.8 40.1.305716.3.579.2. 1993 Unknown [id number] 2.16. 840.1.020463.3.579.2. 1993 Unknown [id number] 2.16. 840.1.270458.3.579.2. 1993 Unknown [id number] 2.16.8 40.1.613701.3.579.2. 1993 Unknown [id number] 2.16.8 40.1.580247.3.579.2. 1993 Unknown [id number] 2.16.8 40.1.573703.3.579.2. 1993 Unknown [id number] 2.16.8 40.1.007552.3.579.2. 1993 Unknown [id number] 2.16.8 40.1.479674.3.579.2.627 1993 Unknown [id number] 2.16.8 40.1.352939.3.579.2.627 1993 Unknown [id number] 2.16.8 40.1.249000.3.579.2.627 Private Health Insurance [id number] Unknown [id number] 2.16.8 [id number] Social History Date Type Detail Facility Start: 09-12-2019 End: 12-13-2022 Ex-smoker (finding) [facility] Start: 1995 Sex Assigned At Male [facility] Start: 12-23-2018 Tobacco smoking status IDIS Tobacco smoking consumption unknown [facility] Start: 1995 Sex Assigned At Not on file [facility] Start: 12-23-2018 Heavy [facility] Start: 12-23-2018 Spouse/ Signif icant Other [facility] Start: 04-15-2023 Tobacco smoking status Light tobacco smoker (finding) [facility] Tobacco Nicotine Use: Va ping Product in Last 90 Days. Type: Electronic Cigarettes (Vaping). Exposure to Tobacco Smoke minimal. [facility] Tobacco smoking status [facility] Start: 04-09-2019 Sex Male (finding) [facility] Sex Male [facility] Medical Equipment Procedure Code Equipment Code Equipment Origin al Text Equipment Identifier Dates Blood Glucose [facility] Strips Start: 09-09-[address] Strips Start: 09-09-[address] Start: 09-09-2020 See Instructions , qs for 1 month supply--test four times daily, # 1 EA, 11 Refill(s), Pharmacy: [id number], 189.4, cm, 09/09/20 13:36:00 EDT, Height, 127.1, kg, 09/09/20 13:36:00 EDT, Dosing Weight Start: 09-09-2020 See Instructions , qs for 1 month supply--test four times daily, # 1 EA, 11 Refill(s), Pharmacy: [facility] #[id number], 189.4, cm, 09/09/20 13:36:00 EDT, Height, 127.1, kg, 09/09/20 13:36:00 EDT, Dosing Weight Start: 09-09-2020 See Instructions , qs for 1 month supply--test four times daily, # 1 EA, 11 Refill(s), Pharmacy: [facility]acy #[id number], 189.4, cm, 09/09/20 13:36:00 EDT, Height, 127.1, kg, 09/09/20 13:36:00 EDT, Dosing Weight Start: 09-09-2020 See Instructions , qs for 1 month supply--test four times daily, # 1 EA, 11 Refill(s), Pharmacy: [facility] #[id number], 189.4, cm, 09/09/20 13:36:00 EDT, Height, 127.1, kg, 09/09/20 13:36:00 EDT, Dosing Weight Start: 09-09-2020 See Instructions , qs for 1 month supply--test four times daily, # 1 EA, 11 Refill(s), Pharmacy: [facility]/pharmacy #[id number], 189.4, cm, 09/09/20 13:36:00 EDT, Height, 127.1, kg, 09/09/20 13:36:00 EDT, Dosing Weight Start: 09-09-2020 See Instructions , qs for 1 month supply--test four times daily, # 1 EA, 11 Refill(s), Pharmacy: [facility] #[id number], 189.4, cm, 09/09/20 13:36:00 EDT, Height, 127.1, kg, 09/09/20 13:36:00 EDT, Dosing Weight Start: 09-09-2020 See Instructions , qs for 1 month supply--test four times daily, # 1 EA, 11 Refill(s), Pharmacy: [facility] #[id number], 189.4, cm, 09/09/20 13:36:00 EDT, Height, 127.1, kg, 09/09/20 13:36:00 EDT, Dosing Weight Start: 09-09-2020 See Instructions , qs for 1 month supply--test four times daily, # 1 EA, 11 Refill(s), Pharmacy: [facility]/pharmacy #[id number], 189.4, cm, 09/09/20 13:36:00 EDT, Height, 127.1, kg, 09/09/20 13:36:00 EDT, Dosing Weight Start: 09-09-2020 See Instructions , qs for 1 month supply--test four times daily, # 1 EA, 11 Refill(s), Pharmacy: [facility]/pharmacy #[id number], 189.4, cm, 09/09/20 13:36:00 EDT, Height, 127.1, kg, 09/09/20 13:36:00 EDT, Dosing Weight Start: 09-09-2020 See Instructions , qs for 1 month supply--test four times daily, # 1 EA, 11 Refill(s), Pharmacy: [facility]/pharm[facility] #[id number], 189.4, cm, 09/09/20 13:36:00 EDT, Height, 127.1, kg, 09/09/20 13:36:00 EDT, Dosing Weight Start: 09-09-2020 See Instructions , qs for 1 month supply--test four times daily, # 1 EA, 11 Refill(s), Pharmacy: [facility]/pharm[facility] #[id number], 189.4, cm, 09/09/20 13:36:00 EDT, Height, 127.1, kg, 09/09/20 13:36:00 EDT, Dosing Weight Start: 09-09-2020 See Instructions , qs for 1 month supply--test four times daily, # 1 EA, 11 Refill(s), Pharmacy: [facility]/pharmacy #[id number], 189.4, cm, 09/09/20 13:36:00 EDT, Height, 127.1, kg, 09/09/20 13:36:00 EDT, Dosing Weight Start: 09-09-2020 See Instructions , qs for 1 month supply--test four times daily, # 1 EA, 11 Refill(s), Pharmacy: [id number], 189.4, cm, 09/09/20 13:36:00 EDT, Height, 127.1, kg, 09/09/20 13:36:00 EDT, Dosing Weight Start: 09-09-2020 See Instructions , qs for 1 month supply--test four times daily, # 1 EA, 11 Refill(s), [id number] 189.4, cm, 09/09/20 13:36:00 EDT, Height, 127.1, kg, 09/09/20 13:36:00 EDT, Dosing Weight Start: 09-09-2020 See Instructions , qs for 1 month supply--test four times daily, # 1 EA, 11 Refill(s), [id number], 189.4, cm, 09/09/20 13:36:00 EDT, Height, 127.1, kg, 09/09/20 13:36:00 EDT, Dosing Weight Start: 09-09-2020 See Instructions , qs for 1 month supply--test four times daily, # 1 EA, 11 Refill(s), [id number], 189.4, cm, 09/09/20 13:36:00 EDT, Height, 127.1, kg, 09/09/20 13:36:00 EDT, Dosing Weight Start: 09-09-2020 See Instructions , qs for 1 month supply--test four times daily, # 1 EA, 11 Refill(s), [id number], 189.4, cm, 09/09/20 13:36:00 EDT, Height, 127.1, kg, 09/09/20 13:36:00 EDT, Dosing Weight Start: 09-09-2020 See Instructions , qs for 1 month supply--test four times daily, # 1 EA, 11 Refill(s), Pharmacy: [facility] #[id number], 189.4, cm, 09/09/20 13:36:00 EDT, Height, 127.1, kg, 09/09/20 13:36:00 EDT, Dosing Weight Start: 09-09-2020 See Instructions , qs for 1 month supply--test four times daily, # 1 EA, 11 Refill(s), [id number] 189.4, cm, 09/09/20 13:36:00 EDT, Height, 127.1, kg, 09/09/20 13:36:00 EDT, Dosing Weight Start: 09-09-2020 See Instructions , qs for 1 month supply--test four times daily, # 1 EA, 11 Refill(s), [id number], 189.4, cm, 09/09/20 13:36:00 EDT, Height, 127.1, kg, 09/09/20 13:36:00 EDT, Dosing Weight Start: 09-09-2020 Clinical Notes 08-31-2020 to 01-24-2025 Note Date & Type Note Facility 01-24-2025 Note Exam Date Time Procedure Performing Provider Status 01/24/25 9:04 AM US Abdomen Complete KASEY, ADOLFO Kay DO ; Auth (Verified) [id number] ORIGINAL EXAMINATION: COMPLETE ABDOMINAL ULTRASOUND 01/24/2025 9:09 am COMPARISON: 06/20/2024 HISTORY: ORDERING SYSTEM PROVIDED HISTORY: Reason for Exam: CIRRHOSIS CHRONIC LIVER DISEASE DUE TO ALCOHOL All images are recorded and archived. FINDINGS: LIVER: Liver measures 16.4 cm in length with a smooth contour. There is moderate increased echotexture throughout the hepatic parenchyma suggesting fatty change or fibrosis. There is no solid hepatic mass. A 8 mm cyst is seen in the inferior right lower lobe. There is normal hepatopetal flow in the main portal vein. BILIARY SYSTEM: Gallbladder is unremarkable without evidence of pericholecystic fluid, wall thickening or stones. Negative sonographic Strauss's sign. Common bile duct is within normal limits measuring 4.3 mm. KIDNEYS: 6 right and left kidneys measure 10.3 x 6.5 x 6.7 cm, and 10.3 x 5.8 x 6.8 cm respectively. There is normal renal cortical thickness and echotexture without stone disease. PANCREAS: Pancreas is poorly visualized despite multiple maneuvers and attempted water pancreas technique. SPLEEN: Spleen homogeneous in echotexture measuring 13.3 x 13.1 x 4.7 cm. IVC: The IVC is patent. AORTA: Aorta is patent without aneurysm. OTHER: No evidence of ascites. IMPRESSION: 1. Moderate fatty change or fibrosis of the liver. 2. No acute intra-abdominal process. Interpreted by: Adolfo Parks DO Preliminary Report By: Adolfo Parks DO Electronically signed By Adolfo Parks DO Dictated Date: 01/24/2025 3:30:29 PM Prelim Date: 01/24/2025 3:32:55 PM Sign Date: 01/24/2025 3:32:55 PM Ordering Provider: [facility]02-05-2025 Note* Exam Date Time Procedure Performing Provider Status 06/20/24 1:33 PM US Abdomen Limited ADOLFO PARKS DO; Auth (Verified) [id number] ORIGINAL EXAMINATION: RIGHT UPPER QUADRANT ULTRASOUND 06/20/2024 1:44 pm COMPARISON: 09/12/2023 HISTORY: ORDERING SYSTEM PROVIDED HISTORY: Reason for Exam: Unspecified cirrhosis of liver, Alcoholic liver disease, unspecified FINDINGS: LIVER: The liver demonstrates mild to moderate increased echogenicity without evidence of intrahepatic biliary ductal dilatation. Liver measures 16.5 cm in diameter. There is a smooth hepatic contour without macro lobular appearance. BILIARY SYSTEM: Gallbladder is distended contains minimal sludge. There is no shadowing stone, pericholecystic edema or ultrasound Strauss sign. Negative sonographic Strauss's sign. Common bile duct is within normal limits measuring 4.8 mm RIGHT KIDNEY: The right kidney is grossly unremarkable without evidence of hydronephrosis. Right kidney measures 10.8 x 6.4 x 7.0 cm. Appropriate cortical thickness and echotexture observed.. PANCREAS: Visualized portions of the pancreas are unremarkable. OTHER: No evidence of right upper quadrant ascites. IMPRESSION: 1. Mild to moderate fatty infiltration of the liver. 2. Minimal gallbladder sludge. Interpreted by: Adolfo Parks DO Preliminary Report By: Adolfo Parks DO Electronically signed By Adolfo Parks DO Dictated Date: 06/20/2024 4:35:59 PM Prelim Date: 06/20/2024 4:39:20 PM Sign Date: 06/20/2024 4:39:20 PM Ordering Provider: [facility]04-29-2024 Note ORIGINAL EXAMINATION: COMPLETE ABDOMINAL ULTRASOUND09/12/2023 9:18 am ULTRASOUND ABDOMEN COMPLETE, COMPARISON: Ultrasound 11/23/[address] 09/25/2018 HISTORY: ORDERING SYSTEM PROVIDED HISTORY: Reason for Exam: CIRRHOSIS, FINDINGS: The liver is mildly coarsened in echotexture and mildly increased in echogenicity. No focal lesion is seen. There is no significant nodularity of the liver margins. Antegrade flow is seen in the main portal vein.. There is no intrahepatic bile duct dilatation. The common duct is 4.4 mm at the dallin hepatis. The gallbladder is sonographically normal without calculus, wall thickening or tenderness. The pancreas is mostly obscured by bowel gas artifacts and poorly visualized.. The spleen is mildly enlarged 14.7 cm vertical dimension similar to earlier studies. No focal splenic lesion.. No ascites. Limited survey images of the kidneys show normal cortical thickness and echogenicity. No pelvocaliectasis. . The aorta and IVC are suboptimally visualized due to artifacts. Visualized aorta shows no aneurysm.. IMPRESSION: Steatosis or other diffuse hepatocellular disease. No portal vein thrombosis. Mild splenomegaly also seen on earlier imaging. Interpreted by: Haroon Kaiser MD Preliminary Report By: Haroon Kaiser MD Electronically signed By Haroon Kaiser MD Dictated Date: 09/12/2023 3:21:14 PM Prelim Date: 09/12/2023 3:24:45 PM Sign Date: 09/12/2023 3:24:45 PM Ordering Provider: [facility]04-18-2021 History of Present illness Narrative* Marsha Reyes, - 08/31/2020 4:26 PM EDT DATE OF SERVICE: 08/30/2020 HISTORY OF PRESENT ILLNESS: This is a 24-year-old male who presents today complaining of dizziness, nausea, headache, blurred vision, and patient states that his symptoms started August 28. He felt like he was going to pass out at work. He has had another episode of near syncope today and he came in for further evaluation. He just started a new job at . ALLERGIES: No known drug allergies. PAST MEDICAL HISTORY: The patient is positive for arthritis. He was treated with metformin for diabetes but had some normal hemoglobin A1c and the physician chose to stop the metformin, so he has been off of it for a while. He has a history of high blood pressure, dependency on alcohol, and he asked about rehabilitation programs, thyroid disease, and orthopedic surgery, ears, nose, and throat surgery, knee and testicular surgery. The patient's states that he needs to get off of alcohol and that he wanted to get a job where he would be responsible to other people. He has always just worked for himself and he said that way he cannot show up drunk to work and he can start getting himself together, but he has gone without alcohol for about a week and a half and I do not think that is helping us here. I think he is going through alcohol withdrawal as well. SOCIAL HISTORY: No tobacco. Does drink alcohol. FAMILY HISTORY: Positive for diabetes. SOCIAL HISTORY: Unremarkable. PHYSICAL EXAMINATION: Weight 273 pounds, blood pressure 120/70, pulse 90, respirations 16, temperature 98.4, pulse oximetry is 98%. This is a 24-year-old male who looks acutely ill, very pale, seated on the table, answers appropriately, but is having a hard time even keeping his eyes open. He just looks sick. HEENT: Membranes are very dry. He is pale. Heart is regular rate and rhythm. Lungs: Decreased breath sounds in the bases but overall no wheezing, no congestion, no consolidation. Abdomen: Liver is slightly enlarged. Hepatomegaly to 3 fingers below the right costal margin. The spleen is down 3 fingers below the left costal margin. He has no tenderness over the spleen but does have tenderness over the liver. He also has tenderness over the kidneys, nothing over the bladder. Looking at the eyes, pupils are equal, round, reactive to light and accommodation. Extraocular movements appear intact. Fundoscopic exam: The vessels have proliferated, and he has a lot of new vessels it looks like, suggesting that this has been a longstanding diabetic change. We did lab work on this patient and the lab called us. Blood sugar greater than 600. Sodium low at 123, potassium 3.6, chloride of 82, CO2 of 24, glucose 637, BUN is 37, and creatinine is 2.7. He has got, what I think is a prerenal azotemia, so this young man is in trouble. We are going to have to send him over to the emergency room. His mom is here with him and she is going to drive him. I called her in and spoke with her at his request. We are going to go ahead and get him on over to the emergency room. I called [facility] and made the transfer at 1300. I reported to the ER staff and they accepted transfer. IMPRESSION: 1. Hyperglycemia, 637. 2. Acute alcohol withdrawal. 3. Hyponatremia, 123, possibly pseudo secondary to sugar. 4. Acute renal failure, probable prerenal azotemia. PLAN: The patient is headed to [facility]. Marsha Reyes DO /[id number] [facility] File#: [id number] END OF DOCUMENT / CHANGE LOG FOLLOWS Last Edited By [employer]. Signed By Marsha Reyes Lisa D DO #VAULI on 09/03/2020 11:54 ET on 09/03/2020 11:54 ET Revision Number - 2 ^^^ Verified/Reviewed by 09/03/20 1154 [facility] PATIENT NAME: LASHAUN JEFFERSON [address] Desir MEDICAL REC #: [id number] [place] [address] [facility] REPORT STATCARE PHYSICIAN documented [facility] note Future Appointments Appointment Date:08/03/2021 01:20:00 PM Scheduled Provider:MERLIN VELIZ DO Location:[facility] Appointment Type:PC OV Diagnostic Tests Pending * Complete Metabolic Panel 06/29/21 * TB Quantiferon, Incubated 06/29/21 Future Scheduled Tests Laboratory* A1C Hemoglobin 09/29/20 * Lipid Profile 09/29/20 * Complete Metabolic Panel 09/29/20 Radiology* XR Chest 2 Views (PA & Lateral) 09/11/20 [facility] Evaluation + Plan note Future Appointments Appointment Date:08/03/2021 01:20:00 PM Scheduled Provider:MERLIN VELIZ DO Location:[facility] Appointment Type: OV Future Scheduled Tests Laboratory* A1C Hemoglobin 09/29/20 * Lipid Profile 09/29/20 * Complete Metabolic Panel 09/29/20 Radiology* XR Chest 2 Views (PA & Lateral) 09/11/20 [facility] Evaluation + Plan note Future Appointments Appointment Date:08/03/2021 01:20:00 PM Scheduled Provider:MERLIN VELIZ DO Location:[facility] Appointment Type: OV Future Scheduled Tests Radiology* XR Chest 2 Views (PA & Lateral) 09/11/20 [facility] Youbetmealuation + Plan note Future Appointments Appointment Date:12/07/2021 03:00:00 PM Scheduled Provider:IVONNE BROUSSARD Location:[facility] Appointment Type: OV [facility] Evaluation + Plan note Future Appointments Appointment Date:03/08/2022 03:00:00 PM Scheduled Provider:IVONNE BROUSSARD Location:[facility] Appointment Type: OV [facility] Evaluation + Plan note Future Appointments Appointment Date:06/07/2022 03:00:00 PM Scheduled Provider:IVONNE BROUSSARD Location:[facility] Appointment Type: OV Future Scheduled Tests Laboratory* Thyroid Stimulating Hormone 06/08/22 * Free T4 06/08/22 * A1C Hemoglobin 06/08/22 * Lipid Profile 06/08/22 * Complete Metabolic Panel 06/08/22 [facility] Evaluation + Plan note Future Appointments Appointment Date:06/07/2022 03:00:00 PM Scheduled Provider:IVONNE BROUSSARD Location:[facility] Appointment Type: OV [facility] Evaluation + Plan note Future Appointments Appointment Date:09/06/2022 03:30:00 PM Scheduled Provider:IVONNE BROUSSARD Location:[facility] Appointment Type:PC OV Future Scheduled Tests Laboratory* A1C Hemoglobin 09/05/22 * Lipid Profile 09/05/22 * Complete Metabolic Panel 09/05/22 [facility] Evaluation + Plan note Future Appointments Appointment Date:09/06/2022 03:30:00 PM Scheduled Provider:IVONNE BROUSSARD Location:[facility] Appointment Type: OV [facility] Evaluation + Plan note Future Appointments Appointment Date:01/31/2023 03:00:00 PM Scheduled Provider:IVONNE BROUSSARD Location:[facility] Appointment Type: OV [facility] Evaluation + Plan note Future Appointments Appointment Date:07/27/2023 11:30:00 AM Scheduled Provider:IVONNE BROUSSARD Location:[facility] Appointment Type:PC OV Future Scheduled Tests Laboratory* Thyroid Stimulating Hormone 04/15/23 * Complete Blood Count 04/15/23 * Lipid Profile 04/15/23 * Albumin/Creatinine Ratio, Random Urine 04/01/23 * Complete Metabolic Panel 04/15/23 [facility] Evaluation + Plan note Future Appointments Appointment Date:07/27/2023 11:30:00 AM Scheduled Provider:IVONNE BROUSSARD Location:[facility] Appointment Type:PC OV Diagnostic Tests Pending * QFT-TB Plus (Client Incubated) 06/03/23 Future Scheduled Tests Laboratory* Thyroid Stimulating Hormone 04/15/23 * Complete Blood Count 04/15/23 * Lipid Profile 04/15/23 * Albumin/Creatinine Ratio, Random Urine 04/01/23 * Complete Metabolic Panel 04/15/23 [facility] Evaluation + Plan note Future Appointments Appointment Date:10/26/2023 11:30:00 AM Scheduled Provider:IVONNE BROUSSARD Location:[facility] Appointment Type:PC OV Future Scheduled Tests Laboratory* Testosterone Level Total 07/27/23 * Albumin/Creatinine Ratio, Random Urine 04/01/23 [facility] Evaluation + Plan note Future Appointments Appointment Date:09/06/2023 11:15:00 AM Scheduled Provider:BEKAH SENIOR DPM Location:[facility] [place] Appointment Type:POD LEASING CONSULTANT Appointment Date:10/26/2023 11:30:00 AM Scheduled Provider:IVONNE BROUSSARD Location:[facility] Appointment Type:PC OV Future Scheduled Tests Laboratory* Albumin/Creatinine Ratio, Random Urine 04/01/23 [facility] Evaluation + Plan note Future Appointments Appointment Date:10/26/2023 11:30:00 AM Scheduled Provider:IVONNE BROUSSARD Location:[facility] Appointment Type:PC OV Future Scheduled Tests Laboratory* Albumin/Creatinine Ratio, Random Urine 04/01/23 [facility] Evaluation + Plan note Future Appointments Appointment Date:08/29/2024 11:30:00 AM Scheduled Provider:IVONNE BROUSSARD Location:[facility] Appointment Type:PC OV Future Scheduled Tests Laboratory* TSH with Reflex to FT4 02/25/24 * Thyroid Stimulating Hormone 08/29/24 * Free T4 08/29/24 * A1C Hemoglobin 08/29/24 * A1C Hemoglobin 02/25/24 * Lipid Profile 08/29/24 * Lipid Profile 02/25/24 * Albumin/Creatinine Ratio, Random Urine 08/29/24 * Complete Metabolic Panel 08/29/24 * Complete Metabolic Panel 02/25/24 [facility] Evaluation + Plan note Future Appointments Appointment Date:08/29/2024 11:30:00 AM Scheduled Provider:IVONNE BROUSSARD Location:[facility] Appointment Type:PC OV Diagnostic Tests Pending * QFT-TB Plus (Client Incubated) 07/05/24 Future Scheduled Tests Laboratory* TSH with Reflex to FT4 02/25/24 * Thyroid Stimulating Hormone 08/29/24 * Free T4 08/29/24 * A1C Hemoglobin 08/29/24 * A1C Hemoglobin 02/25/24 * Lipid Profile 08/29/24 * Lipid Profile 02/25/24 * Albumin/Creatinine Ratio, Random Urine 08/29/24 * Complete Metabolic Panel 08/29/24 * Complete Metabolic Panel 02/25/24 [facility] Evaluation + Plan note Future Appointments Appointment Date:02/27/2025 11:30:00 AM Scheduled Provider:IVONNE BROUSSARD Location:[facility] Appointment Type: OV Future Scheduled Tests Laboratory* TSH with Reflex to FT4 02/25/24 * TSH with Reflex to FT4 08/29/24 * A1C Hemoglobin 02/25/24 * Lipid Profile 02/25/24 * Lipid Profile 02/28/25 * Complete Metabolic Panel 08/29/24 * Complete Metabolic Panel 02/25/24 * Complete Metabolic Panel 02/28/25 [facility] Evaluation noteNo assessment information available [facility] Work Phone: Hospital course Narrative No data available for this section [facility] Hospital Discharge instructions No data available for this section [facility] Progress note No data available for this section [facility] Reason for referral (narrative)No reason for referral information availableW[facility] Work Phone: Chief Complaint and Reason for Visit Chief Complaint ELEVATED LIVER ENZYM ES Advance Directives Advance Directive Response Recorded Date/ Time Living Will No [place] 10th, 201 9 1:38pm Power of Pneumatic Drum Sander No December 23 019 1:38pm Summary Purpose Family History No Family History Records Found Additional Source Comments Source Comments (unrecognize d section and content) In the event this informatio n is protected by the Federal Confidentiality of Alcohol and Drug Abuse Patient Records regulations: The Federal rules restrict any use of the information to criminally investigate or prosecute any alcohol or drug abuse patient.[facility] Care Teams (unrecognized sec tion and content) Rehabilitation Aide Relationship Specialty Start Date End Date Benjy Velazco, DO [address] [place] [address] PCP - General 07/17/03 Team Status: Active Member Role Status Dates Ivonne Broussard LEASING CONSULTANT, LEASING CONSULTANT-C Family Provider Active Ivonne Broussard LEASING CONSULTANT, LEASING CONSULTANT-C Primary Care Provider Active Team Status: Inactive Member Role Status Dates Ivonne Broussard LEASING CONSULTANT, LEASING CONSULTANT-C Primary Care Provider Active Dr. Fly Deng MD Attending Provider, Referring Provider Active Team Status: Active Member Role/Relationship Status Dates Ivonne Broussard LEASING CONSULTANT, LEASING CONSULTANT-C Primary care physician Active Team Status: Inactive Member Role/Relationship Status Dates Ivonne Broussard LEASING CONSULTANT, LEASING CONSULTANT-C Primary care physician Active Start: February 06, 2025 End: February 06, 2025 Dr. Macario Mccurdy MD Attending physician Active Start: February 06, 2025 End: February 06, 2025 Dr. Macario Mccurdy MD Referring Provider Active Start: February 06, 2025 End: February 06, 2025 Care Team (unrecognized sect ion and content) Care Team Personnel Name: Fatuma Dodgervivian Larson PT Position: P3 Scheduling - Life Manager Advanced Member Role: Other Name: IVONNE BROUSSARD BENCH ASSEMBLER ELECTRICAL-LABEL MAKER Position: P4 Advanced Practice Nurse Med Service: Active Provider Member Role: Primary Care Physician Address: Address: [address] [place] [address]- Care Team Related Persons Name: JAYY JUNIOR Address: Home [address] [place] [id number] [place] Address: Temporary [address] [place] [phone] Care Team Personnel Name: Fatuma Dodge Clerk Marsha PT Position: P3 Scheduling - Life Manager Advanced Member Role: Other Name: IVONNE BROUSSARD APRN-LABEL MAKER Position: P4 Advanced Practice Nurse Med Service: Active Provider Member Role: Primary Care Physician Address: Address: [address] [place] [id number]- Care Team Related Persons Name: JAYY JUNIOR Address: Home [address] [place], [place] [phone] [place] Address: Temporary [address] [place] [phone] Care Team Personnel Name: Fatuma Dodge Clerk Marsha PT Position: P3 Scheduling - Life Manager Advanced Member Role: Other Name: IVONNE BROUSSARD APRN-LABEL MAKER Position: P4 Advanced Practice Nurse Member Role: Primary Care Physician Address: Address: [address] [place] [id number]- Care Team Related Persons Name: JAYY JUNIOR Address: Home [address] [place], [place] [phone] [place] Address: Temporary [address] [place] [phone] Care Team Personnel Name: Fatuma Dodge Clerk Marsha PT Position: P3 Scheduling - Life Manager Advanced Member Role: Other Name: IVONNE BROUSSARD BENCH ASSEMBLER ELECTRICAL-LABEL MAKER Position: P4 Advanced Practice Nurse Member Role: Primary Care Physician Address: Address: [address] [place] [address]- Care Team Related Persons Name: JAYY JUNIOR Address: Home [address] [place], [place] [phone] [place] Address: Temporary [address] [place] [phone] Care Team Personnel Name: Fatuma Dodge Clerk Marsha PT Position: P3 Scheduling - Life Manager Advanced Member Role: Other Name: IVONNE BROUSSARD CARLOS-LABEL MAKER Position: P4 Advanced Hat Stock Laminating Machine Operator Member Role: Primary Care Physician Address: Address: [address] [facility] [address] [facility] [place] [address]- Care Team Related Persons Name: JAYY JUNIOR Address: Home [address] [place], [place] [phone] [place] Address: Temporary [address] [place], [place] [phone] Goals (unrecognized section and content) Goals may be documented in a n alternate section (unrecognized sect ion and content) No Status Records FoundNo Status Records FoundNo Status Records Found INFORMATION SOURCE (unrecogn ized section and content) DATE CREATED AUTHOR 09/25/2023 [facility] ([place]) DATE CREATED AUTHOR AUTHOR'S ORGANIZ ATION 01/26/2025 [facility] DATE CREATED AUTHOR AUTHOR'S ORGANIZ ATION 02/16/2025 [facility] FOR RECORDS PERTAINING TO PATIENTS WHO ARE OR HAVE BEEN ENROLLED IN A CHEMICAL DEPENDENCY/SUBSTANCEABUSE PROGRAM, SOME INFORMATION MAY BE OMITTED. This clinical summary was aggregated from multiple sources. Caution should be exercised in using it in the provision of clinical care. This summary normalizes information from multiple sources, and as a consequence, information in this document may materially change the coding, format and clinical context of patient data. In addition, data may be omitted in some cases. CLINICAL DECISIONS SHOULD BE BASED ON THE PRIMARY CLINICAL RECORDS. [facility]. provides no warranty or guarantee of the accuracy or completeness of information in this document.
--- NOTE | 2025-04-12 15:15 | ED.VIS.LOWEX ---
HPI History of Present Illness Chief Complaint: Lower Extremity Injury Narrative Narrative: Patient is a 29-year-old male presenting to the emergency department for left knee pain. Patient states that a few days ago he was walking on the stairs when he feels like he hyperextended his leg and immediately had significant pain in his left knee. States that since then he has had pain and feels like it is going to give out on him. States that he does have a history of arthritis in his knees but this is usually his "good knee". He denies any other injuries. Denies any numbness or weakness in his leg. Denies any falls. States has been taking Tylenol for pain control. [facility] Medical History Psoriasis Alcohol abuse GERD (gastroesophageal reflux disease) Hypothyroidism Diabetes Hypertension Home Medications Medication Instructions Recorded Last Taken Type metformin 500 mg tablet,extended 2,000 mg (4 x 500 mg) PO DAILY 12/23/18 Unknown Rx release 24 hr #120 tabs pantoprazole 40 mg tablet,delayed 40 mg PO DAILY 12/23/18 Unknown History release adalimumab 40 mg/0.8 mL 40 mg subcut 12/13/22 Unknown History subcutaneous pen kit (Humira Pen) clonidine HCl 0.2 mg tablet 0.2 mg PO BID 12/13/22 Unknown History folic acid 400 mcg tablet 400 mcg PO DAILY 12/13/22 Unknown History thiamine HCl (vitamin B1) 100 mg 100 mg PO DAILY 12/13/22 Unknown History tablet (Vitamin B-1) fluoxetine 40 mg capsule 40 mg PO DAILY 04/12/25 Unknown History levothyroxine 50 mcg tablet 50 mcg PO DAILY 04/12/25 Unknown History losartan 50 mg tablet 50 mg PO DAILY 04/12/25 Unknown History Allergy/AdvReac Type Severity Reaction Status Date / Time No Known Allergies Allergy Verified 04/12/25 12:46 Social History Smoking Status: Former smoker ROS ROS ED ROS Narrative see HPI EXAM Physical Exam Narrative Exam Narrative: Vital signs: Reviewed General: Alert and oriented x 3. No acute distress. Well appearing, nontoxic. HEENT: Head is normocephalic and atraumatic, sinuses nontender, pupils equal round and reactive. Nares are patent. Oropharynx and throat exams normal. Neck: Supple without lymphadenopathy nontender Cardiovascular: Regular rate and rhythm, no murmurs. No rubs or gallops. Normal S1 and S2 Respiratory: Clear to auscultation bilaterally. No wheezes, rales, rhonchi Abdominal: Soft and nontender. Normal bowel sounds. No guarding or rebound. Nonsurgical abdomen Extremities: There is some mild swelling noted to the cephalad anterior knee. Tenderness to palpation along this area. There is no erythema or warmth of the knee. Patient can flex and extend without significant pain. No abnormalities felt to quadriceps tendon. Patella lie is normal. DP and PT pulses intact in the left lower extremity. Sensation intact. There is some mild swelling to the posterior cephalad calf, no tenderness to palpation. No palpable cords. No erythema or warmth of the calf. Negative anterior and posterior drawer test. Negative Gamal test. Skin: No rash or redness. The rest of the physical exam is unremarkable Const Vital Signs: 04/12/25 12:45 04/12/25 16:13 Temperature 98.3 F 98.2 F Temperature Source Oral Pulse Rate 100 97 Respiratory Rate 16 18 Blood Pressure 153/91 H 150/88 H Blood Pressure Mean 111 108 Pulse Ox 99 99 Oxygen Delivery Method Room Air MDM MDM MDM Narrative Medical decision making narrative: Patient is a 29-year-old male presenting to the emergency department for a left knee injury. Patient was seen and examined. Vitals are stable. Patient resting in bed comfortably no acute distress. Differential includes but is not limited to: Ligamentous sprain, less likely fracture, dislocation or DVT There is no obvious deformity, no bony tenderness to palpation I do not suspect fracture or dislocation. Patient has some mild swelling to the cephalad portion of the calf, will obtain a DVT ultrasound. I suspect this is likely ligamentous injury to the knee. Patient was given Toradol for pain control. X-ray reviewed by myself, no fracture or dislocation. Radiology read in agreement. DVT ultrasound is negative. Patient was updated on the negative workup. Aman wrap was applied. Recommended RICE therapy for home. I did provide orthopedic follow-up as well if he continues to have pain for possible MRI for evaluation of ligamentous injury. Patient discharged from the Emergency Department. I do not feel that the patient's evaluation reveals any acute reason for admission at this time. I instructed them to either follow-up with their primary care physician or promptly return to the Emergency Department for reevaluation should symptoms worsen or new symptoms develop. I explained what symptoms would indicate the need to return to the emergency department. Shared decision making was used. The patient voiced understanding of the treatment plan and is agreeable with it. Clinical impression Knee sprain History & Record Review Discussion w/independent historian: Patient Radiography X-Ray: Read by ED Physician, Normal and No Fracture Diagnostic Testing: Clinical Impression(s) from Imaging Studies Knee X-Ray 04/12/25 13:16 IMPRESSION: NO EFFUSION ACUTE FRACTURE OR DISLOCATION. Reading Location: [facility] Discharge Plan Triage Chief Complaint: Lower Extremity Injury ED Provider: Omaira Ogden Dx/Rx/DC Orders Clinical Impression: Left knee sprain Instructions: First Aid: Sprains and Fractures, ED Knee Sprain Prescriptions: No Action pantoprazole 40 MG tablet 40 mg PO DAILY metformin 500 MG tablet 2,000 mg PO DAILY Qty: 120 0RF Rx Instructions: Begin taking one tab daily for first 4 days. Then increase to 2 tabs daily for 4 days. Then increase to 3 tabs daily for 4 days. Then increase to 4 tabs daily. Humira Pen 40 mg/0.8 mL pen injector kit 40 mg subcut clonidine HCl 0.2 mg tablet 0.2 mg PO BID folic acid 400 mcg tablet 400 mcg PO DAILY thiamine HCl (vitamin B1) [Vitamin B-1] 100 mg tablet 100 mg PO DAILY losartan 50 mg tablet 50 mg PO DAILY fluoxetine 40 mg capsule 40 mg PO DAILY levothyroxine 50 mcg tablet 50 mcg PO DAILY Primary Care Provider: Ivonne Enriquez NP Referrals: Timmy Ritchie MD [Med Staff - Active Staff, Orthopedics] - As soon as possible Ivonne Enriquez NP, [facility] [Primary Care Provider, Family Practice] - As soon as possible Activity Restrictions/Additional Instructions: Take Motrin at home for pain control. You can ice and elevate your leg to help with your symptoms. If you continue to have pain follow-up with orthopedics for possible MRI. Your evaluation in the Emergency Department did not reveal any acute reason for admission. However, I want to emphasize that you may be early in the course of a disease process or illness even if it is not present. For this reason you should follow-up within 24 hours for reevaluation with either your primary care physician or if necessary back here in the Emergency Department. You should return to the Emergency Department immediately if your symptoms worsen or new symptoms develop. Print Language: [place] Island[place] Disposition Disposition: Home, Self Care Discharge Date/Time: 04/12/25 16:14
[2025-04-12 16:13] VITALS: BP 150/88; PULSE 97; RESP 18; TEMP 36.8; O2SAT 99
== END 2025-04-12 16:14 | disposition home or self-care (01) ==
PROVIDERS: Emergency Provider Student in an Organized Health Care Education/Training Program; PCP Nurse Practitioner Family; Visit Provider Student in an Organized Health Care Education/Training Program
DX: S83.92XA Sprain of unspecified site of left knee, initial encounter (principal); E11.9 Type 2 diabetes mellitus without complications; Z87.891 Personal history of nicotine dependence; X58.XXXA Exposure to other specified factors, initial encounter; Y93.01 Activity, walking, marching and hiking; I10 Essential (primary) hypertension; Z79.84 Long term (current) use of oral hypoglycemic drugs; K21.9 Gastro-esophageal reflux disease without esophagitis; Z79.899 Other long term (current) drug therapy; E03.9 Hypothyroidism, unspecified; Z79.890 Hormone replacement therapy; M79.89 Other specified soft tissue disorders
CPT/HCPCS: 73564; 93971; 96372; 99282

== ENCOUNTER → 2025-05-01 | Outpatient (CLI) | payer BC, SELFPAY ==
[2025-05-03 10:08] LABS: QNTFERON TB Mitogen Value > 10.00 IU/mL (.); QNTFERON TB Nil Value 0.04 IU/mL (.); QNTFERON TB1+ Ag Value 0.03 IU/mL (.); QNTFERON TB2+ Ag Value 0.03 IU/mL (.); QNTIFERON TB Positive Criteria Negative (Negative)
== END | disposition home or self-care (01) ==
LOC: MTLAB 15:09
PROVIDERS: PCP Nurse Practitioner Family; Referring Provider Internal Medicine Rheumatology; Visit Provider Internal Medicine Rheumatology
DX: L40.59 Other psoriatic arthropathy (principal); Z79.899 Other long term (current) drug therapy
CPT/HCPCS: 36415; 86480

== ENCOUNTER → 2025-05-10 | Outpatient (CLI) | payer BC, SELFPAY ==
--- NOTE | 2025-05-10 11:03 | MRI_ITS ---
PROCEDURE: LOWER EXT JOINT ONLY (ROUTINE) 05/10/2025 REASON FOR EXAM: INTERNAL DERANGEMENT KNEE TECHNIQUE: Procedure Code: MRILEJ Modality: MR Procedure: LOWER EXT JOINT ONLY (ROUTINE) Multiplanar and multisequence images were obtained without IV contrast administration. COMPARISON: 12-Apr-2025 FINDINGS: Moderate knee joint effusion with synovial edema/hypertrophy seen involving its different synovial reflections associated with loculated fluid surrounding the popliteus tendon with intramuscular edema of its muscle belly. Associated khushi-articular mild intermuscular soft tissue edema with mottled marrow signal of the examined bones. High signal of the patellar articular cartilage with no underlying marrow edema. The posterior horn of the medial meniscus shows high signal reaching its meniscocapsular attachment yet not interrupting its articular surfaces. The posterior horn of the lateral meniscus shows high signal not interrupting its articular surfaces. Fluid signal encasing the medial collateral ligament. Intact lateral collateral ligament. Intact anterior and posterior cruciate ligaments. Intact retinacular ligaments. Intact patellar and quadriceps tendons. No marrow infiltrative lesions. MRI/Lower Ext Joint Only (Routine) IMPRESSION: Moderate knee joint effusion with synovial edema/hypertrophy, possibly inflamma tory associated with popliteus tenosynovitis and intramuscular edema. Grade I patellar chondromalacia. Grade II signal of the posterior horn of the medial meniscus. Grade I signal of the posterior horn of the lateral meniscus. Grade I medial collateral ligament sprain. Reading [facility] [id number]
== END | disposition home or self-care (01) ==
LOC: MRI 10:58
PROVIDERS: PCP Nurse Practitioner Family; Referring Provider Nurse Practitioner Family; Visit Provider Nurse Practitioner Family
DX: S83.92XA Sprain of unspecified site of left knee, initial encounter (principal); M25.362 Other instability, left knee
CPT/HCPCS: 73721

== ENCOUNTER → 2025-05-14 | Outpatient (CLI) | payer BC, SELFPAY ==
[2025-05-14 17:52] LABS: Hematocrit 43.3 % (40-54); Hemoglobin 14.1 g/dL (13.0-16.5); Mean Corp Hgb Conc 32.6 g/dL (32-36); Mean Corpuscular Volume 86.3 fL (80-94); Mean Platelet Vol. 8.0 fl (6.2-12.0); Platelet Count 474 K/mm3 (150-450); RBC Distribution Width CV 12.7 % (11.6-14.6); RBC Distribution Width SD 38.9 fl (35.1-43.9); Red Blood Count 5.02 M/mm3 (4.6-6.2); White Blood Count 11.3 K/mm3 (4.4-11.0)
[2025-05-14 17:54] LABS: Prothrombin Time (Protime)PT. 14.4 SECONDS (11.7-14.9)
[2025-05-14 17:55] LABS: Partial Thromboplast Time 34.4 Seconds (24.1-36.2)
[2025-05-14 18:23] LABS: AST(SGOT) 21 U/L (<=37); Alanine Aminotransfer ALT/SGPT 38 U/L (<=46); Albumin, Serum 4.3 g/dL (3.5-5.0); Alkaline Phosphatase 123 U/L (40-129); Anion Gap 11 (7-18); BUN 11 mg/dL (4-19); BUN/Creat Ratio 14.4 RATIO (10-20); Calcium,Total 10.2 mg/dL (7.6-11.0); Carbon Dioxide 30.4 mmol/L (20.0-29.0); Chloride 98 mmol/L (96-106); Globulin 4.0 g/dL (2.2-4.2); Glucose 97 mg/dL (70-99); Potassium 4.4 mmol/L (3.5-5.1)
== END | disposition home or self-care (01) ==
LOC: MTLAB 14:39
PROVIDERS: PCP Nurse Practitioner Family; Referring Provider Internal Medicine Gastroenterology; Visit Provider Internal Medicine Gastroenterology
DX: K74.60 Unspecified cirrhosis of liver (principal)
CPT/HCPCS: 36415; 80053; 82105; 85027; 85610; 85730